=== PATIENT | female | born 1970 | race Caucasian/White ===

== ENCOUNTER 2024-02-22 12:44 | Inpatient (IN) ==
--- OUTSIDE RECORDS SUMMARY | 2024-02-22 12:48 | External Medical Summary | Summary of Care ---
Author Name Unknown Organization [facility] Address [address] [facility] [address] Phone [phone] Care Team Providers Care Assistant Professor Of Business Name Role Phone Lane Malone MD Primary Care Provider +1- [phone] Reason for Visit * Reason Onset Date Comments Med Request 01/19/2024 FYI 01/19/2024 Encounter Details Date Type Department Care Team (Late st Contact Info) Description 01/19/2024 Telephone [facility] [address] [place] [address] [address] Malone MD [address] [place] [address] Med Request; Allergies No known active allergiesdocumented as of this encounter (statuses as of 02/19/2024) Medications Medication Sig Dispensed Refills Start Date End Date Status Ondansetron 4 MG Oral Tablet Disintegrating (Zofran)Indications: Nausea Place 1 Tab on tongue every 8 hours as needed for Nausea. dissolve on tongue. 12 Tab 1 01/10/2021 Active Additional Information Patient not taking.Reported on 12/02/2023 ALPRAZolam 0.5 MG Oral Tablet (xaNAX) Take 1 Tablet by mouth as needed for Anxiety. 15 Tablet 0 02/04/2023 Active buPROPion HCl ER (XL) 300 MG Oral Tablet Extended Release 24 Hour (Wellbutrin XL) Take 1 Tablet by mouth in the morning. 90 Tablet 1 10/15/2023 Active clomiPRAMINE HCl 75 MG Oral Capsule (Anafranil) Take 2 Capsules by mouth every night at bedtime. 180 Capsule 1 10/15/2023 Active [place] Carbonate 300 MG Oral Capsule (Eskalith) TAKE 3 CAPSULES BY MOUTH NIGHTLY 270 Capsule 1 10/15/2023 Active Topiramate 50 MG Oral Tablet (Topamax) Take 1 Tablet by mouth in the morning and 1 Tablet before bedtime. 180 Tablet 1 11/12/2023 Active Levothyroxine Sodium 88 MCG Oral Tablet (Levoxyl)Indications :Acquired hypothyroidism TAKE 1 TABLET DAILY 90 Tablet 2 11/12/2023 Active Mounjaro 5 MG/0.5ML Subcutaneous Solution Pen-injector (Tirzepatide) Inject 5 mg under the skin once a week. 2 mL 3 12/19/2023 Active Lurasidone HCl 120 MG Oral Tablet (Latuda) Take 1 Tablet by mouth in the morning. Total of 140mg daily. 90 Tablet 1 01/05/2024 Active Lurasidone HCl 20 MG Oral Tablet (Latuda) Take 1 Tablet by mouth in the morning. Total of 140mg daily. 90 Tablet 1 01/05/2024 Active Lisdexamfetamine Dimesylate 70 MG Oral Capsule (Vyvanse) Take 1 Capsule by mouth in the morning. Do not start before January 19, 2024. 90 Capsule 0 01/19/2024 Active Pantoprazole Sodium 40 MG Oral Tablet Delayed Release (Protonix) Take 1 tab by mouth twice per day 180 Tablet 1 01/14/2024 Active documented as of this encounter (statuses as of 02/19/2024) Active Problems Problem Noted Date Diagnosed Date Hiatal hernia 05/29/2023 Prediabetes 08/19/2022 Overview: Per Prediabetes protocol Chronic kidney disease, stage 3a 12/17/2021 Overview: Per CKD protocol Other specified hypothyroidism 02/04/2008 Major depressive disorder, recurrent episode, mo derate 01/29/2008 Obsessive-compulsive disorder 08/14/2007 Raynaud's syndrome 07/10/2007 ADVANCE DIRECTIVE INFORMATION 09/25/2006 Overview: Information offered-patient declined Laxative abuse Eating disorder Overview: hospitalized, [place], left AMA, mixed type documented as of this encounter (statuses as of 02/19/2024) Resolved Problems Problem Noted Date Diagnosed Date Resolved Date Headache 02/12/2008 07/24/2011 Overview: ICD-10 update of inactive term Other B-complex deficiencies 02/01/2008 07/24/2011 rule out UTI 02/01/2008 02/04/2008 Disorder of thyroid 01/29/2008 02/04/20 08 Major depressive disorder, s laura episode, severe 01/28/2008 07/24/2011 Obsessive-compulsive disorder 07/10/2007 02/04/2008 Anemia 09/30/2006 07/24/2011 ABN LIVER FUNCTION STUDY 09/30/2006 ELEV BL PRES W-O HYPERTN PRESCRIP-ORAL CONTRACEPT documented as of this encounter (statuses as of 02/19/2024) Immunizations Name Administration Dates Next Due TDAP (age 11 and older)(Adacel) 07/17/2009 documented as of this encounter Social History Tobacco Use Types Packs/Day Years Used Date Smoking Tobacco: Never Smokeless Tobacco: Never Alcohol Use Standard Drinks/Week Comments No 0 (1 standard drink = 0.6 oz pur e alcohol) Hunger Vital Sign Answer Date Recorded Within the past 12 months, y ou worried that your food would run out before you got the money to buy more. Never true 07/30/20 23 Within the past 12 months, t he food you bought just didn't last and you didn't have money to get more. Never true 07/30/2023 Sex and Gender Information Value Date Recorded Sex Assigned at Female 07/30/2023 8:20 AM EDT Gender Identity Female 07/30/2023 8:20 AM EDT Sexual Orientation Straight 07/30/2023 8: 20 AM EDT Job Start Date Occupation Industry Not on file Not on file Not on file documented as of this encounter Miscellaneous Notes * Telephone Encounter - Christi Munoz, student services director - 02/19/2024 2:12 PM EDT Patients spouse calling stating that Patient was able to obtain Mounjaro 5 mg/0.5 ml at [facility] pharmacy Thank you, Christi Munoz Educator Senior Clinical I [facility] ([facility]) 02/19/2024,2:15 PM * Telephone Encounter - Marisela Fiore CPhT - 02/18/2024 2:03 PM EDT Pt's calling to check on status of mounjaro not being available and what MD wants pt to do.Pt's last injection she has is for this Friday then pt will be out of medication Thank you, Marisela Fiore CPhT II Drier Take Off Tender [facility] ([facility]) (Formerly Telepharmacy) 02/18/2024, 2:03 PM * Telephone Encounter - Yuli Yan student services director - 02/13/2024 2:59 PM EDT Patient spouse called in to make us aware that mounjaro is unavailable at pharmacy in the 7mg and 5mg doses. He is wondering what they should do. He states that she has enough for this week and next Thank you, Yuli Yan Educator Senior Clinical I [facility] ([facility] Telepharmacy) 02/13/2024,3:00 PM * Telephone Encounter - Lane Malnoe MD - 01/20/2024 9:45 PM EDT Noted * Telephone Encounter - Ailyn Cotter student services director - 01/20/2024 5:39 PM EDT Pt calling in advising the 7.5 is on backorder and pharmacy is unsure when they will have it, wants to stay on the 5 mg for now instead of increasing the dose as they have the 5 mg in stock, please disregard dose increase for now. Thank you, Ailyn Cotter [facility] Drier Take Off Tender II [facility] ([facility]) (formerly Telepharmacy) 01/20/2024,5:40 PM * Addendum Note - Carleen Coronel RPh - 01/19/2024 1:08 PM EDTAddended by: CARLEEN CORONEL on: 01/19/2024 01:08 PM Modules accepted: Orders * Telephone Encounter - Kimmie Hawk PHARM Tech - 01/19/2024 12:44 PM EDT Pt calling in to request a dose change on their Mounjaro 5 MG/0.5ML Subcutaneous Solution Pen-injector (Tirzepatide). Current dose: 5 MG/0.5ML Requested dose: 7.5MG Reason for request: due for a high dose Preferred pharmacy: [facility] Patient unwilling to speak with pharmacist at this time. Routing to pharmacist pool to advise. Thank you, Keny Hawk, Instrument Technologist Educator Senior Clinical 1 [facility] ([facility]) (Formerly Telepharmacy) 01/19/2024,12:44 PM documented in this encounter Plan of Treatment Upcoming Encounters Date Type Department Care Team (Late st Contact Info) Description 02/25/2024 8:30 AM EDT Telemedicine Psychiatry, [address] [place] [address] Jeremy Lezama MD [address] [place] [address] 06/10/2024 9:40 AM EDT Office Visit [facility] [address] [place] [address] [address] Malone MD [address] [facility] [place] [id number] 10/13/2024 10:40 AM EST Office Visit Otolaryngology [facility] [address] [place] [address] Cleve Gardner PA-C [address] [place] [address] Scheduled Procedures Name Priority Associated Diagnoses Date/Ti me ESOPHAGOGASTRODUODENOSCOPY ( EGD), FLEXIBLE, TRANSORAL, DIAGNOSTIC Recall Reflux esophagitis Health Maintenance Due Date Last Done Comments HIV Screening 1985 Albumin/Creatinine Ratio 01/08/1988 Hepatitis B (1 of 3 - 19+ 3-dose series) 1989 Mammogram 2010 Cologuard 2015 Colonoscopy 2015 Colorectal Cancer Screening 2015 Fecal Occult Blood Test 2015 Sigmoidoscopy 2015 DTaP,Tdap,and Td Vaccines (2 - Td or Tdap) 07/17/2019 07/17/2009 Zoster Vaccines (1 of 2) 01/08/2020 PAP SMEAR-EVERY 5 YRS,AGES 21-100 10/23/2020 10/23/2015, 07/18/2011 COVID-19 Vaccine ( - 2022- season) 2023 GFR 11/26/2023 05/26/2023, /01/2023, 11/25/2022, Additional history exists CKD PHOS USE SMARTSET 77201 05/26/2024 05/26/2023 Influenza Vaccine (FLU shot) (Season Ended) 2024 CKD HGB USE SMARTSET 45824 11/28/202411/28, 11/29/2022, 11/28/2021, Additional history exists HbA1c 11/28/2024 11/28/2023, 11/07, 11/25/2022, Additional history exists TSH 12/02/2024 12/02/2023, 05/07, 11/29/2022, Additional history exists Lipid Panel 11/29/2027 11/29/2022, 07/08, 11/28/2021, Additional history exists Hepatitis C Screening Completed 10/14/2006 GARDASIL-HPV IMMUNIZATION SERIES Aged Out No longer eligible based on patient's age to complete this topic MENINGOCOCCAL (MENACTRA/MENVEO) Aged Out No longer eligible based on patient's age to complete this topic Pneumococcal Vaccine: Pediatrics (0 to 5 Years) and At-Risk Patients (6 to 64 Years) Aged Out No longer eligible based on patient's age to complete this topic documented as of this encounter Medical Devices Implanted Type Area Water Pumping Station Engineer Device Identifier Shelf Expiration Date Model / Serial / Lot Lens 16.5 Mx60 - [id number] - [id number] Implanted:Qty: 1 on 08/05/2017 by Navin Benjamin MD at OR [facility] Left: Eye [employer]OM[employer] : SURGICAL 03/05/2020 MX60-16.5 / [id number] / Lens 14.0 Mx60 - [id number] - [id number] Implanted:Qty: 1 on 08/21/2017 by Navin Benjamin MD at OR [facility] Right: Eye BAUSCH [employer] LOMB : SURGICAL 06/05/2018 MX60-14.0 / [id number] / documented as of this encounter Advance Directives Latest Code Status on File Code Status Date Activated Date Inactivated Comments Full Code 12/11/2020 12:24 PM 12/11/2020 5:15 PM This o rder reflects the patients wishes and were consensually agreed upon. Code Status History Code Status Date Activated Date Inactivated Comments Full Code 08/21/2017 7:41 AM 08/21/2017 1:56 PM Thi s order reflects the patients wishes and were consensually agreed upon. Full Code 08/05/2017 11:02 AM 08/05/2017 5:23 PM Th is order reflects the patients wishes and were consensually agreed upon. Full Code 01/28/2008 12:00 PM 02/01/2008 8:00 PM Care Teams Assistant Professor Of Business Relationship Specialty Start Date End Date Lane Malone MD [address] [place] [address] PCP - General Family Medicine 01/01/22 documented as of this encounter
--- OUTSIDE RECORDS SUMMARY | 2024-02-22 12:49 | External Medical Summary | Summary of Care ---
Author Name Unknown Organization [facility] Address [address] [place] [address] Phone [phone] Care Team Providers Care Solution Professional Name Role Phone Guerline Muniz MD Primary Care Provider +1- [phone] Reason for Visit * Reason Onset Date Comments Medication Refill 12/19/2023 Encounter Details Date Type Department Care Team (Late st Contact Info) Description 12/19/[address] [facility] [address] [place] [address] Guerline Muniz MD [address] [place] [address] Anemia, unspecified type; Weight gain; Prediabetes Allergies No known active allergiesdocumented as of this encounter (statuses as of 12/19/2023) Medications Medication Sig Dispensed Refills Start Date [...] for Anxiety. 15 Tablet 0 02/04/2023 Active Pantoprazole Sodium 40 MG Oral Tablet Delayed Release (Protonix) Take 1 tab by mouth twice per day 180 Tablet 1 05/29/2023 Active buPROPion HCl ER (XL) 300 MG Oral Tablet Extended Release 24 Hour (Wellbutrin XL) Take 1 Tablet by mouth in the morning. 90 Tablet 1 10/15/2023 Active clomiPRAMINE HCl 75 MG Oral Capsule (Anafranil) Take 2 Capsules by mouth every night at bedtime. 180 Capsule 1 10/15/2023 Active [place] Carbonate 300 MG Oral Capsule (Eskalith) TAKE 3 CAPSULES BY MOUTH NIGHTLY 270 Capsule 1 10/15/2023 Active Topiramate 50 MG Oral Tablet (Topamax) Take 1 Tablet by mouth in the morning and 1 Tablet before bedtime. 180 Tablet 1 11/12/2023 Active Levothyroxine Sodium 88 MCG Oral Tablet (Levoxyl)Indications :Acquired hypothyroidism TAKE 1 TABLET DAILY 90 Tablet 2 11/12/2023 Active Lurasidone HCl 120 MG Oral Tablet (Latuda) Take 1 Tablet by mouth in the morning. Total of 140mg daily. 90 Tablet 1 11/27/2023 Active Mounjaro 2.5 MG/0.5ML Subcutaneous Solution Pen-injector (Tirzepatide)Indicat ions:Anemia, unspecified type,Weight gain,Prediabetes Inject 2.5 mg under the skin once a week. 2 mL 5 12/02/2023 Active Lurasidone HCl 20 MG Oral Tablet (Latuda) Take 1 Tablet by mouth in the morning. Total of 140mg daily. 30 Tablet 1 12/10/2023 Active Lisdexamfetamine Dimesylate 70 MG Oral Capsule (Vyvanse) Take 1 Capsule by mouth in the morning. Do not start before December 22, 2023. 30 Capsule 0 12/22/2023 Active Mounjaro 5 MG/0.5ML Subcutaneous Solution Pen-injector (Tirzepatide) Inject 5 mg under the skin once a week. 2 mL 3 12/19/2023 5 Active documented as of this encounter (statuses as of 12/19/2023) Active Problems Problem Noted Date Diagnosed Date Hiatal hernia 05/29/2023 Prediabetes 08/19/2022 Overview: Per Prediabetes protocol Chronic kidney disease, stage 3a 12/17/2021 Overview: Per CKD protocol Other specified hypothyroidism 02/04/2008 Major depressive disorder, recurrent episode, mo derate 01/29/2008 Obsessive-compulsive disorder 08/14/2007 Raynaud's syndrome 07/10/2007 ADVANCE DIRECTIVE INFORMATION 09/25/2006 Overview: Information offered-patient declined Laxative abuse Eating disorder Overview: hospitalized, [place], left AMA, mixed type documented as of this encounter (statuses as of 12/19/2023) Resolved Problems Problem Noted Date Diagnosed Date [...] as of this encounter (statuses as of 12/19/2023) Immunizations Name Administration Dates Next Due TDAP [...] encounter Miscellaneous Notes * Telephone Encounter - Guerline Muniz MD - 12/19/2023 1:44 PM EDTSigned Prescriptions: Disp Refills Mounjaro 5 MG/0.5ML Subcutaneous Solution *2 mL 3 Sig: Inject 5 mg under the skin once a week.Authorizing Provider: GUERLINE MUNIZ * Telephone Encounter - Guerline Muniz MD - 12/19/2023 1:44 PM EDT New dose sent erx * Telephone Encounter - Annette Cabrera RPh - 12/19/2023 1:36 PM EDT Dose change recommended for Mounjaro . Script pending. Please approve if appropriate and route backto inform the patient. Current dose: 2.5mg Requested dose: 5mg Reason for request: The lower initial dose (2.5mg weekly) is intended to reduce GI symptoms; it does not provide effective glycemic control. Recommend tapering up to next appropriate dose. Patient aware to finish full 4 weeks of 2.5mg before switching to 5mg. Pending Prescriptions: Disp Refills Mounjaro 5 MG/0.5ML Subcutaneous Solution*2 mL 1 Sig: Inject 5 mg under the skin once a week. ThanksAnnette, PharmD Clinical Pharmacist [facility] ([facility]) [phone] 12/19/2023 1:36 PM * Telephone Encounter - Alma Delia Rebollar PHARM Tech - 12/19/2023 1:30 PM EDT Pt calling in to request a dose change on their Mounjaro 2.5 MG/0.5ML Subcutaneous Solution Pen-injector (Tirzepatide) . Current dose: 2.5 mg Requested dose: per provider Reason for request: Provider stated if she was tolerating med well he may increase dosage. Preferred pharmacy: [facility] [address] Warm-transferred pt to pharmacist for consultation. Thank you, Alma Delia Rebollar Varnish Filterer I [facility] ([facility]) (Formerly Telepharmacy) 12/19/2023,1:30 PM documented in this encounter Plan of Treatment Upcoming Encounters Date Type Department Care Team (Late st Contact Info) Description 01/05/2024 2:00 PM EDT Telemedicine Psychiatry, [address] [address] Jeremy Lezama MD [address] [place] [address] 03/19/2024 9:00 AM EDT Office Visit Gastroenterology, [facility] [address] [place] [address] Vale Engel CRNP [address] [place] [address] 06/10/2024 9:40 AM EDT Office Visit [facility] [address] [place] [id number] Guerline Muniz MD [address] [place] [address] 10/13/2024 10:40 AM EST Office Visit Otolaryngology [facility] [address] [place] [address] Cleve Gardner PA-C [address] [place] [address] Scheduled Procedures Name Priority Associated Diagnoses Date/Ti me ESOPHAGOGASTRODUODENOSCOPY ( EGD), FLEXIBLE, TRANSORAL, DIAGNOSTIC Recall Reflux esophagitis Health Maintenance Due Date Last Done Comments HIV Screening 1985 Albumin/Creatinine Ratio 01/08/1988 Hepatitis B (1 of 3 - 19+ 3-dose series) 1989 Mammogram 2010 Cologuard 2015 Colonoscopy 2015 Colorectal Cancer Screening 2015 Fecal Occult Blood Test 2015 Sigmoidoscopy 2015 Depression Screening 07/31/2018 07/31/2017 DTaP,Tdap,and Td Vaccines (2 - Td or Tdap) 07/17/2019 07/17/2009 Zoster Vaccines (1 of 2) 01/08/2020 PAP SMEAR-EVERY 5 YRS,AGES 21-100 10/23/2020 10/23/2015, 07/18/2011 COVID-19 Vaccine (2022- season) 2023 Influenza Vaccine (FLU shot) (#1) 2023 GFR 11/26/2023 05/26/2023, 11/07, 11/25/2022, Additional history exists CKD PHOS USE SMARTSET 77794 05/26/2024 05/26/2023 CKD HGB USE SMARTSET 05752 11/28/202411/28, 11/29/2022, 11/28/2021, Additional history exists HbA1c [...] this encounter Medical Devices Implanted Type Area Director Pharmaceutical Device Identifier Shelf Expiration Date Model / Serial / Lot Lens 16.5 Mx60 - [id number] - [id number] Implanted:Qty: 1 on 08/05/2017 by Navin Benjamin MD at OR [facility] [address] Left: Eye [employer] LOMB : SURGICAL 03/05/2020 MX60-16.5 / [id number] / Lens 14.0 Mx60 - [id number] - [id number] Implanted:Qty: 1 on 08/21/2017 by Navin Benjamin MD at OR [facility] [address] Right: Eye BAUSCH [employer] LOMB : SURGICAL 06/05/2018 MX60-14.0 / [id number] / documented as of this encounter Visit Diagnoses Diagnosis Anemia, unspecified type Weight gain Abnormal weight gain Prediabetes Other abnormal glucose documented in this encounter Advance Directives Latest Code Status [...] 12:00 PM 02/01/2008 8:00 PM Care Teams Solution Professional Relationship Specialty Start Date End Date Guerline Muniz MD [address] [place] [address] PCP - General Family Medicine 01/01/22 documented as of this encounter
--- OUTSIDE RECORDS SUMMARY | 2024-02-22 12:49 | External Medical Summary | Summary of Care ---
Author Name Unknown Organization [facility] Address [address] [place] [facility] [place] [place] [address] Phone [phone] Care Team Providers Care Dinkey Operator Slag Name Role Phone Lane Malone MD Primary Care Provider +1- [phone] Reason for Visit * Reason Onset Date Comments Med Request 01/19/2024 Encounter Details Date Type Department Care Team (Late st Contact Info) Description 01/19/2024 Telephone [facility] [address] [place] [address] [address] Malone MD [address] [place] [address] Med Request Allergies No known active allergiesdocumented as of this encounter (statuses as of 02/13/2024) Medications Medication Sig Dispensed Refills Start Date [...] at bedtime. 180 Capsule 1 10/15/2023 Active [place] Carbonate 300 MG Oral Capsule (Eskalith) TAKE [...] as of this encounter (statuses as of 02/13/2024) Active Problems Problem Noted Date Diagnosed Date Hiatal hernia 05/29/2023 Prediabetes 08/19/2022 Overview: Per Prediabetes protocol Chronic kidney disease, stage 3a 12/17/2021 Overview: Per CKD protocol Other specified hypothyroidism 02/04/2008 Major depressive disorder, recurrent episode, mo derate 01/29/2008 Obsessive-compulsive disorder 08/14/2007 Raynaud's syndrome 07/10/2007 ADVANCE DIRECTIVE INFORMATION 09/25/2006 Overview: Information offered-patient declined Laxative abuse Eating disorder Overview: hospitalized, [place], left AMA, mixed type documented as of this encounter (statuses as of 02/13/2024) Resolved Problems Problem Noted Date Diagnosed Date [...] as of this encounter (statuses as of 02/13/2024) Immunizations Name Administration Dates Next Due TDAP [...] encounter Miscellaneous Notes * Telephone Encounter - Yuli Yan, hat steamer - 02/13/2024 2:59 PM EDT Patient spouse called in to make us aware that mounjaro is unavailable at pharmacy in the 7mg and 5mg doses. He is wondering what they should do. He states that she has enough for this week and next Thank you, Yuli Yan Engineering Lab Technician I [facility] ([facility]formerly [facility]) 02/13/2024,3:00 PM * Telephone Encounter - Lane Malone MD - 01/20/2024 9:45 PM EDT Noted * Telephone Encounter - Ailyn Cotter PHARM Tech - 01/20/2024 5:39 PM EDT Pt calling in advising the 7.5 is on backorder and pharmacy is unsure when they will have it, wants to stay on the 5 mg for now instead of increasing the dose as they have the 5 mg in stock, please disregard dose increase for now. Thank you, Ailyn Cotter CPhT Hourly Shift II [facility] ([facility]) (formerly [...] due for a high dose Preferred pharmacy: [facility] [address] Patient unwilling to speak with pharmacist at this time. Routing to pharmacist pool to advise. Thank you, Keny Hawk, Inspector And Mender Engineering Lab Technician 1 [facility] ([facility]) (Formerly Telepharmacy) 01/19/2024,12:44 PM documented in this encounter Plan of Treatment Upcoming Encounters Date Type Department Care Team (Late st Contact Info) Description 02/25/2024 8:30 AM EDT Telemedicine Psychiatry, [facility] [address] [place] [address] Jeremy Lezama MD [address] [place] [address] 06/10/2024 9:40 AM EDT Office Visit [facility] [address] [place] [address] Lane Malone MD [address] [place] [address] 10/13/2024 10:40 AM EST Office Visit Otolaryngology [facility] [address] [place] [address] Cleve Gardner PA-C [address] [place] [address] Scheduled Procedures Name Priority Associated Diagnoses Date/Ti [...] - 2022- season) 2023 GFR 11/26/2023 05/26/2023, 11/07, 11/25/2022, Additional history exists CKD PHOS USE SMARTSET 66416 05/26/2024 05/26/2023 Influenza Vaccine (FLU shot) (Season Ended) 2024 CKD HGB USE SMARTSET 73333 11/28/202411/28, 11/29/2022, 11/28/2021, Additional history exists HbA1c [...] this encounter Medical Devices Implanted Type Area Putty Remover Device Identifier Shelf Expiration Date Model / Serial / Lot Lens 16.5 Mx60 - [id number] - [id number] Implanted:Qty: 1 on 08/05/2017 by Navin Benjamin MD at OR [facility] Left: Eye BAUSCH [employer] LOMB : SURGICAL 03/05/2020 MX60-16.5 / [id number] / Lens 14.0 Mx60 - [id number] - [id number] Implanted:Qty: 1 on 08/21/2017 by Navin Benjamin MD at OR [facility] Right: Eye BAUSCH [employer] LOMB : SURGICAL 06/05/2018 MX60-14.0 / [id number] / documented as of this encounter Advance [...] 12:00 PM 02/01/2008 8:00 PM Care Teams Dinkey Operator Slag Relationship Specialty Start Date End Date Lane Malone MD [address] [place] [address] PCP - General Family Medicine 01/01/22 documented as of this encounter
--- OUTSIDE RECORDS SUMMARY | 2024-02-22 12:49 | External Medical Summary | Summary of Care ---
Author Name Unknown Organization [facility] Address [address] [place] [address] Phone [phone] Care Team Providers Care Supervisor Forming And Tempering Name Role Phone Lane Malone MD Primary Care Provider +1- [phone] Reason for Visit * Reason Onset Date Comments Medication Refill 12/13/2023 Encounter Details Date Type Department Care Team (Late st Contact Info) Description 12/13/2023 Refill Psychiatry, [address] [address] Jeremy Lezama MD [address] [place] [address] Allergies No known active allergiesdocumented as of this encounter (statuses as of 12/17/2023) Medications Medication Sig Dispensed Refills Start Date End Date Status Ondansetron 4 MG Oral Tablet Disintegrating (Zofran)Indications :Nausea Place 1 Tab on tongue every 8 [...] at bedtime. 180 Capsule 1 10/15/2023 Active [place] Carbonate 300 MG Oral Capsule (Eskalith) TAKE 3 CAPSULES BY MOUTH NIGHTLY 270 Capsule 1 10/15/2023 Active Topiramate 50 MG Oral Tablet (Topamax) Take 1 Tablet by mouth in the morning and 1 Tablet before bedtime. 180 Tablet 1 11/12/2023 Active Levothyroxine Sodium 88 MCG Oral Tablet (Levoxyl)Indication s:Acquired hypothyroidism TAKE 1 TABLET DAILY 90 Tablet 2 11/12/2023 Active Lurasidone HCl 120 MG Oral Tablet (Latuda) Take 1 Tablet by mouth in the morning. Total of 140mg daily. 90 Tablet 1 11/27/2023 Active Mounjaro 2.5 MG/0.5ML Subcutaneous Solution Pen-injector (Tirzepatide)Indica tions:Anemia, unspecified type,Weight gain,Prediabetes Inject 2.5 mg under the skin once a week. 2 mL 5 12/02/2023 12/01/19 25 Active Lurasidone HCl 20 MG Oral Tablet (Latuda) Take 1 Tablet by mouth in the morning. Total of 140mg daily. 30 Tablet 1 12/10/2023 Active Lisdexamfetamine Dimesylate 70 MG Oral Capsule (Vyvanse) Take 1 Capsule by mouth in the morning. 30 Capsule 0 12/15/2023 Active Lisdexamfetamine Dimesylate 70 MG Oral Capsule (Vyvanse) Take 1 Capsule by mouth in the morning. 90 Capsule 0 09/22/2023 12/13/19 24 Discontinu ed(Refill) documented as of this encounter (statuses as of 12/17/2023) Active Problems Problem Noted Date Diagnosed Date Hiatal hernia 05/29/2023 Prediabetes 08/19/2022 Overview: Per Prediabetes protocol Chronic kidney disease, stage 3a 12/17/2021 Overview: Per CKD protocol Other specified hypothyroidism 02/04/2008 Major depressive disorder, recurrent episode, mo derate 01/29/2008 Obsessive-compulsive disorder 08/14/2007 Raynaud's syndrome 07/10/2007 ADVANCE DIRECTIVE INFORMATION 09/25/2006 Overview: Information offered-patient declined Laxative abuse Eating disorder Overview: hospitalized, [place], left AMA, mixed type documented as of this encounter (statuses as of 12/17/2023) Resolved Problems Problem Noted Date Diagnosed Date [...] as of this encounter (statuses as of 12/17/2023) Immunizations Name Administration Dates Next Due TDAP [...] encounter Miscellaneous Notes * Telephone Encounter - Margo España CPhT - 12/17/2023 9:25 AM EDT Pt EC calling stating pt only has enough Lisdexamfetamine Dismesylate 70mg to last until 12/22/2023. If applicable, pt EC is requesting RX be resent to [facility] [address] [place] [address] with a fill date of 12/22/2023. Did advise caller that pt should have enough medication to last until 12/24/2023, but caller states there are only 5 pills left in the bottle. Thank you, Margo España, [facility] 1 Manager Contracting [facility] ([facility]) (formerly Telepharmacy) 12/17/2023, 9:27 AM * Telephone Encounter - Marlon Mckeon CRNP - 12/15/2023 11:45 AM EDT Signed Prescriptions: Disp Refills Lisdexamfetamine Dimesylate 70 MG Oral Cap*30 Cap*0 Sig: Take 1 Capsule by mouth in the morning. Authorizing Provider: MARLON MCKEON * Telephone Encounter - Marlon Mckeon CRNP - 12/15/2023 11:45 AM EDT I have reviewed the patients controlled substance dispensing history in the Prescription Drug Monitoring Program in compliance with the [facility] regulations before prescribing a controlled substance. * Telephone Encounter - Clara Carver MED ASSIST - 12/15/2023 8:41 AM EDT Pending Prescriptions: Disp Refills Lisdexamfetamine Dimesylate 70 MG Oral Cap*90 Cap*0 Sig: Take 1 Capsule by mouth in the morning. * Telephone Encounter - Clara Carver MED ASSIST - 12/15/2023 8:40 AM EDT Refill request from patient (Katerina) for Vyvanse 70mg. Medication last filled on 09/22/23 with 0 refills. Patient last seen on 10/15/23 with return appointment scheduled for 01/05/24. Patient had 1 cancelled appointments and 0 NO SHOW appointments. documented in this encounter Plan of Treatment Upcoming Encounters Date Type Department Care Team (Late st Contact Info) Description 01/05/2024 2:00 PM EDT Telemedicine Psychiatry, [address] [address] Jeremy Lezama MD [address] [place] [address] 03/19/2024 9:00 AM EDT Office Visit Gastroenterology, [facility] [address] [place] [address] Vale Engel CRNP [address] [place] [address] 06/10/2024 9:40 AM EDT Office Visit [address] [address] [address] Malone MD [address] [place] [address] 10/13/2024 10:40 AM EST Office Visit Otolaryngology [facility] [address] [place] [address] Cleve Gardner PA-C [address] [place] [address] Scheduled Procedures Name Priority Associated Diagnoses Date/Ti [...] Additional history exists CKD PHOS USE SMARTSET 16100 05/26/2024 05/26/2023 CKD HGB USE SMARTSET 16033 11/28/202411/28, 11/29/2022, 11/28/2021, Additional history exists HbA1c [...] this encounter Medical Devices Implanted Type Area Hog Room Supervisor Device Identifier Shelf Expiration Date Model / Serial / Lot Lens 16.5 Mx60 - [id number] - [id number] Implanted:Qty: 1 on 08/05/2017 by Navin Benjamin MD at OR [facility] Left: Eye BAUSCH [employer] LOMB : SURGICAL 03/05/2020 MX60-16.5 / [id number] / Lens 14.0 Mx60 - [id number] - [id number] Implanted:Qty: 1 on 08/21/2017 by Navin Benjamin MD at OR [facility] Right: Eye BAUSCH & LOMB : SURGICAL 06/05/2018 MX60-14.0 / [id number] / documented as of this encounter Advance [...] 12:00 PM 02/01/2008 8:00 PM Care Teams Supervisor Forming And Tempering Relationship Specialty Start Date End Date Lane Malone MD [address] [place] [address] PCP - General Family Medicine 01/01/22 documented as of this encounter
--- OUTSIDE RECORDS SUMMARY | 2024-02-22 12:49 | External Medical Summary | Summary of Care ---
Author Name Unknown Organization [facility] Address [address] [place] [address] Phone [phone] Care Team Providers Care Lead Programmer Analyst Name Role Phone Lane Malone MD Primary Care Provider [phone]- [phone] Encounter Details Date Type Department Care Team (Late st Contact Info) Description 01/05/2024 2:00 PM EDT Telemedicine Psychiatry, [address] [address] Jeremy Lezama MD [address] [place] [address] Borderline personality disorder (HCC)* Allergies No known active allergiesdocumented as of this encounter (statuses as of 01/08/2024) Medications Medication Sig Dispensed Refills Start Date [...] at bedtime. 180 Capsule 1 10/15/2023 Active [place] Carbonate 300 MG Oral Capsule (Eskalith) TAKE [...] once a week. 2 mL 3 12/19/2023 12/19/19 25 Active Lurasidone HCl 120 MG Oral Tablet [...] 19, 2024. 90 Capsule 0 01/19/2024 Active Lurasidone HCl 120 MG Oral Tablet (Latuda) Take 1 Tablet by mouth in the morning. Total of 140mg daily. 90 Tablet 1 11/27/2023 01/05/20 24 Discontinu ed(Refill) Lurasidone HCl 20 MG Oral Tablet (Latuda) Take 1 Tablet by mouth in the morning. Total of 140mg daily. 30 Tablet 1 12/10/2023 01/05/20 24 Discontinu ed(Refill) Lisdexamfetamine Dimesylate 70 MG Oral Capsule (Vyvanse) Take 1 Capsule by mouth in the morning. Do not start before December 22, 2023. 30 Capsule 0 12/22/2023 01/05/20 24 Discontinu ed(Refill) documented as of this encounter (statuses as of 01/08/2024) Active Problems Problem Noted Date Diagnosed Date Hiatal hernia 05/29/2023 Prediabetes 08/19/2022 Overview: Per Prediabetes protocol Chronic kidney disease, stage 3a 12/17/2021 Overview: Per CKD protocol Other specified hypothyroidism 02/04/2008 Major depressive disorder, recurrent episode, mo derate 01/29/2008 Obsessive-compulsive disorder 08/14/2007 Raynaud's syndrome 07/10/2007 ADVANCE DIRECTIVE INFORMATION 09/25/2006 Overview: Information offered-patient declined Laxative abuse Eating disorder Overview: hospitalized, [place], left AMA, mixed type documented as of this encounter (statuses as of 01/08/2024) Resolved Problems Problem Noted Date Diagnosed Date [...] as of this encounter (statuses as of 01/08/2024) Immunizations Name Administration Dates Next Due TDAP [...] on file documented as of this encounter Progress Notes * Jeremy Lezama MD - 01/05/2024 2:01 PM EDT Patient location: HOME. I was not in a hospital or clinic location. After connecting through [employer], patient was verified with two unique identifiers. Patient (or authorized legal membership sales representative) was then informed that this was a Telemedicine visit and being conducted confidentially over secure lines. Methods to assure confidentiality were taken. Patient acknowledged consent and understanding of privacy and security of the Telemedicine visit. The patient agreed to participate. PSYCHOTHERAPY & MEDICATION MANAGEMENT RETURN VISIT NOTE CHIEF COMPLAINT: "med management" INTERVAL HISTORY: She states she is doing ok. Significant improvement with AH-- not hearing during day. Will hear a little bit before going to bed. Feels Latuda increase has been helpful. No SE from increased Latuda. Started Mounjaro-- has lost 15 lbs. Feeling good about this. Still struggling with motivation to do activity. Still struggling with jealousy at times. OBJECTIVE DATA: ROS EXAM: denies SUBSTANCE ABUSE:Unremarkable RELEVANT PAST PSYCHIATRIC, MEDICAL, FAMILY OR SOCIAL HX: as noted above CURRENT MEDS: Current Outpatient Medications Medication Sig Dispense Refill Ondansetron 4 MG Oral Tablet Disintegrating (Zofran) Place 1 Tab on tongue every 8 hours as needed for Nausea. dissolve on tongue. (Patient not taking: Reported on 12/02/2023) 12 Tab 1 ALPRAZolam 0.5 MG Oral Tablet (xaNAX) Take 1 Tablet by mouth as needed for Anxiety. 15 Tablet 0 Pantoprazole Sodium 40 MG Oral Tablet Delayed Release (Protonix) Take 1 tab by mouth twice per day 180 Tablet 1 buPROPion HCl ER (XL) 300 MG Oral Tablet Extended Release 24 Hour (Wellbutrin XL) Take 1 Tablet by mouth in the morning. 90 Tablet 1 clomiPRAMINE HCl 75 MG Oral Capsule (Anafranil) Take 2 Capsules by mouth every night at bedtime. 180 Capsule 1 [place] Carbonate 300 MG Oral Capsule (Eskalith) TAKE 3 CAPSULES BY MOUTH NIGHTLY 270 Capsule 1 Topiramate 50 MG Oral Tablet (Topamax) Take 1 Tablet by mouth in the morning and 1 Tablet before bedtime. 180 Tablet 1 Levothyroxine Sodium 88 MCG Oral Tablet (Levoxyl) TAKE 1 TABLET DAILY 90 Tablet 2 Lurasidone HCl 120 MG Oral Tablet (Latuda) Take 1 Tablet by mouth in the morning. Total of 140mg daily. 90 Tablet 1 Lurasidone HCl 20 MG Oral Tablet (Latuda) Take 1 Tablet by mouth in the morning. Total of 140mg daily. 30 Tablet 1 Lisdexamfetamine Dimesylate 70 MG Oral Capsule (Vyvanse) Take 1 Capsule by mouth in the morning. Donot start before December 22, 2023. 30 Capsule 0 Mounjaro 5 MG/0.5ML Subcutaneous Solution Pen-injector (Tirzepatide) Inject 5 mg under the skin once a week. 2 mL 3 No current facility-administered medications for this visit. LABS: Reviewed per EMR MENTAL STATUS EVALUATION: Appearance: age-appropriate Muscle strength/tone and motor behavior: intention tremor visualized Gait and Station: trembling with intentional movement or at rest Personal Presentation: candid and cooperative. Behavior: cooperative Speech: normal, rate, tone and volume Mood: the same Affect: type - euthymic; range - blunted; lability - no Associations: intact Thought Process: goal directed Abstract Reasoning: intact Thought Content: no SI or voiced HI; AH of music Orientation: alert Recent and remote memory as evidenced by recall of recent circumstances and remote life events: intact Language as evidenced by ability to repeat phrase and name object: intact Fund of knowledge as evidenced by vocabulary and current/historical events: intact Attention span/concentration as evidenced by: following conversation - intact Insight: fair Judgment: fair FORMULATION: Silvia Chambers is a 53 year old female with presenting symptoms of eating disorder. discussed importance of addressing this with ongoing psychotherapy as well as with a operating room surgical technologist (one who specifiesin eating disorders). Has chronic thoughts of suicide due to not feeling good enough-- including wanting to eventually by suicide. 2 inpatient hospitalizations, 1 for an eating disorder. 1 SA at age 19 by OD. 2 children. . Worked for 23 years at [employer] now on disability. Previously in therapy with Ladonna Delgadillo. Struggles with personal hygiene. DIAGNOSIS: Generalized Anxiety Disorder Unspecified Depressive Disorder Borderline Personality Disorder Hx of anorexia Hx of OCD Hx of ECT treatments R/O PTSD PLAN: - cont [place] 900 mg daily - cont Vyvanse 70 mg - cont Clomipramine 75 mg BID - cont Topamax 50 mg BID - cont Buproprion XL 300 mg daily, - cont Xanax 0.5 mg as needed (takes very seldomly) - cont Latuda 140mg qDay - strongly recommend restarting therapy - Goals: making small, sustainable changes - I have reviewed the patients controlled substance dispensing history in the Prescription Drug Monitoring Program in compliance with the [facility] regulations before prescribing a controlled substance. Return 6 weeks Risk/Benefits of Medication Discussed/Verbalized Understanding yes Time Spent on Visit: 30 minutes - including preparing to see the patient, reviewing history, performing evaluation, counseling/educating patient, ordering medications/tests, documenting clinical information. Psychotherapy Attestation: I attest I have spent 16 minutes providing psychotherapy during this visit. The following issues were discussed: explored pros and cons of change. Patient was responsive to treatment and accepting of perspectives offered.. I plan to provide supportive and behavioral based psychotherapy, as needed, in the context of psychopharm management sessions. documented in this encounter Plan of Treatment Upcoming Encounters Date Type Department Care Team (Late st Contact Info) Description 01/16/2024 9:30 AM EDT Office Visit Gastroenterology, [facility] [address] [place] [address] Vale Egnel CRNP [address] [place] [address] 02/25/2024 8:30 AM EDT [address] [address] Jeremy Lezama MD [address] [place] [address] 06/10/2024 9:40 AM EDT [facility] [address] [facility] [place] [address] [address] Malone MD [address] [facility] [place] [id number] 10/13/2024 10:40 AM EST Office Visit Otolaryngology [facility] [address] [place] [address] Cleve Gardner PA-C [address] [place] [address] Scheduled Procedures Name Priority Associated Diagnoses Date/Ti [...] Additional history exists CKD PHOS USE SMARTSET 79457 05/26/2024 05/26/2023 Influenza Vaccine (FLU shot) (Season Ended) 2024 CKD HGB USE SMARTSET 52011 11/28/202411/28, 11/29/2022, 11/28/2021, Additional history exists HbA1c [...] this encounter Medical Devices Implanted Type Area Journal Entry Audit Clerk Device Identifier Shelf Expiration Date Model / Serial / Lot Lens 16.5 Mx60 - [id number] - [id number] Implanted:Qty: 1 on 08/05/2017 by Navin Benjamin MD at OR [facility] Left: Eye BAUSCH [employer] LOMB : SURGICAL 03/05/2020 MX60-16.5 / [id number] / Lens 14.0 Mx60 - [id number] - [id number] Implanted:Qty: 1 on 08/21/2017 by Navin Benjamin MD at OR [facility] Right: Eye BAUSCH & LOMB : SURGICAL 06/05/2018 MX60-14.0 / [id number] / documented as of this encounter Visit Diagnoses Diagnosis Borderline personality disorder (HCC)- Primary Borderline personality disorder documented in this encounter Advance Directives Latest [...] 12:00 PM 02/01/2008 8:00 PM Care Teams Lead Programmer Analyst Relationship Specialty Start Date End Date Lane Malone MD [address] [place] [address] PCP - General Family Medicine 01/01/22 documented as of this encounter
--- OUTSIDE RECORDS SUMMARY | 2024-02-22 12:49 | External Medical Summary | Summary of Care ---
Author Name Unknown Organization [facility] Address [address] [facility] [place] [address] Phone [phone] Care Team Providers Care Poleyard Supervisor Name Role Phone Lane Malone MD Primary Care Provider +1- [phone] Reason for Visit * Reason Onset Date Comments Med Request 01/19/2024 Encounter Details Date Type Department Care Team (Late st Contact Info) Description 01/19/2024 Telephone Located Within [facility] [address] [place] [address] Lane Malone MD [address] [place] [address] Med Request Allergies No known active allergiesdocumented as of this encounter (statuses as of 02/18/2024) Medications Medication Sig Dispensed Refills Start Date [...] at bedtime. 180 Capsule 1 10/15/2023 Active [place] Carbonate 300 MG Oral Capsule (Eskalith) TAKE [...] as of this encounter (statuses as of 02/18/2024) Active Problems Problem Noted Date Diagnosed Date [...] as of this encounter (statuses as of 02/18/2024) Resolved Problems Problem Noted Date Diagnosed Date [...] as of this encounter (statuses as of 02/18/2024) Immunizations Name Administration Dates Next Due TDAP [...] encounter Miscellaneous Notes * Telephone Encounter - Marisela Fiore CPhT - 02/18/2024 2:03 PM EDT Pt's calling to check on status of mounjaro not being available and what MD wants pt to do.Pt's last injection she has is for this Friday then pt will be out of medication Thank you, Marisela Fiore CPhT II Electric Deicer Inspector [facility] ([facility]) (Formerly Telepharmacy) 02/18/2024, 2:03 PM * Telephone Encounter - Yuli Yan cost consultant - 02/13/2024 2:59 PM EDT Patient spouse called in to make us aware that mounjaro is unavailable at pharmacy in the 7mg and 5mg doses. He is wondering what they should do. He states that she has enough for this week and next Thank you, Yuli Yan Proofreader I [facility] ([facility])(formerly Telepharmacy) 02/13/2024,3:00 PM * Telephone Encounter - Lane Malone MD - 01/20/2024 9:45 PM EDT Noted * Telephone Encounter - Ailyn Cotter cost consultant - 01/20/2024 5:39 PM EDT Pt calling in advising the 7.5 is on backorder and pharmacy is unsure when they will have it, wants to stay on the 5 mg for now instead of increasing the dose as they have the 5 mg in stock, please disregard dose increase for now. Thank you, Ailyn Cotter CPhT Electric Deicer Inspector II [facility] ([facility]) (formerly Telepharmacy) 01/20/2024,5:40 PM * Addendum Note - Carleen Coronel [facility] - 01/19/2024 1:08 PM EDTAddended by: CARLEEN CORONEL on: 01/19/2024 01:08 PM Modules accepted: Orders * Telephone Encounter - Kimmie Hawk cost consultant - 01/19/2024 12:44 PM EDT Pt calling in to request a dose change on their Mounjaro 5 MG/0.5ML Subcutaneous Solution Pen-injector (Tirzepatide). Current dose: 5 MG/0.5ML Requested dose: 7.5MG Reason for request: due for a high dose Preferred pharmacy: [facility] Patient unwilling to speak with pharmacist at this time. Routing to pharmacist pool to advise. Thank you, Keny Hawk, Boat Rental Clerk Proofreader 1 [facility] ([facility]) (Formerly Telepharmacy) 01/19/2024,12:44 PM documented in this encounter Plan of Treatment Upcoming Encounters Date Type Department Care Team (Late st Contact Info) Description 02/25/2024 8:30 AM EDT Telemedicine Psychiatry, [address] [place] [address] Jeremy Lezama MD [address] [place] [address] 06/10/2024 9:40 AM EDT Office Visit Located Within [facility] [address] [place] [id number] Lane Malone MD [address] [place] [address] 10/13/2024 10:40 AM EST Office Visit Otolaryngology [facility] [address] [facility] [place] [address] Cleve Gardner PA-C [address] [place] [address] Scheduled Procedures Name Priority Associated Diagnoses Date/Ti [...] Additional history exists CKD PHOS USE SMARTSET 47662 05/26/2024 05/26/2023 Influenza Vaccine (FLU shot) (Season Ended) 2024 CKD HGB USE SMARTSET 04512 11/28/202411/28, 11/29/2022, 11/28/2021, Additional history exists HbA1c [...] this encounter Medical Devices Implanted Type Area Home Health Aide Device Identifier Shelf Expiration Date Model / Serial / Lot Lens 16.5 Mx60 - [id number] - [id number] Implanted:Qty: 1 on 08/05/2017 by Navin Benjamin MD at OR [facility] Left: Eye BAUSCH [employer] LOMB : SURGICAL 03/05/2020 MX60-16.5 / [id number] / Lens 14.0 Mx60 - [id number] - [id number] Implanted:Qty: 1 on 08/21/2017 by Navin Benjamin MD at OR [facility] Right: Eye BAUSCH & LOMB : SURGICAL 06/05/2018 MX60-14.0 / [id number] / documented as of this encounter Advance [...] 12:00 PM 02/01/2008 8:00 PM Care Teams Poleyard Supervisor Relationship Specialty Start Date End Date Lane Malone MD [address] [place] [address] PCP - General Family Medicine 01/01/22 documented as of this encounter
--- OUTSIDE RECORDS SUMMARY | 2024-02-22 12:49 | External Medical Summary | Summary of Care ---
Author Name Unknown Organization [facility] Address [address] [place] [address] Phone [phone] Care Team Providers Care Nanotechnology Engineering Technician Name Role Phone Guerline Muniz MD Primary Care Provider +1- [phone] Reason for Visit * Reason Onset Date Comments Medication Refill 12/19/2023 Encounter Details Date Type Department Care Team (Late st Contact Info) Description 12/19/2023 Refill [facility] [address] [place] [address] Guerline Muniz MD [address] [place] [address] Anemia, unspecified type; Weight gain; [...] at bedtime. 180 Capsule 1 10/15/2023 Active [place] Carbonate 300 MG Oral Capsule (Eskalith) TAKE [...] 140mg daily. 90 Tablet 1 11/27/2023 Active Lurasidone HCl 20 MG Oral Tablet [...] 2 mL 3 12/19/2023 12/19/19 25 Active Mounjaro 2.5 MG/0.5ML Subcutaneous Solution Pen-injector (Tirzepatide)Indica tions:Anemia, unspecified type,Weight gain,Prediabetes Inject 2.5 mg under the skin once a week. 2 mL 5 12/02/2023 12/19/19 24 Discontinu ed(Medicat ion/Dose Changed) documented as of this encounter (statuses as [...] declined Laxative abuse Eating disorder Overview: hospitalized, [place], left AMA, mixed type documented as of [...] as of this encounter Miscellaneous Notes * Addendum Note - Ulises Cabrera [facility] - 12/19/2023 3:13 PM EDTAddended by: ULISES CABRERA on: 12/19/2023 03:13 PM Modules accepted: Orders * Telephone Encounter - Guerline Muniz MD - 12/19/2023 1:44 PM EDTSigned Prescriptions: Disp Refills Mounjaro 5 MG/0.5ML Subcutaneous Solution *2 mL 3 Sig: Inject 5 mg under the skin once a week.Authorizing Provider: GUERLINE MUNIZ * Telephone Encounter - Guerline Muniz MD - 12/19/2023 1:44 PM EDT New dose sent erx * Telephone Encounter - Ulises Cabrera [facility] - 12/19/2023 1:36 PM EDT Dose change [...] mg under the skin once a week. Thanks, Ulises Cabrera PharmD Clinical Pharmacist Centralized Clinical Pharmacy Services (CCPS - Formerly Telepharmacy) [phone] 12/19/2023 1:36 PM * Telephone Encounter - Alma Delia Rebollar PHARM Tech - 12/19/2023 1:30 PM EDT Pt calling in to request a dose change on their Mounjaro 2.5 MG/0.5ML Subcutaneous Solution Pen-injector (Tirzepatide) . Current dose: 2.5 mg Requested dose: per provider Reason for request: Provider stated if she was tolerating med well he may increase dosage. Preferred pharmacy: [facility] Warm-transferred pt to pharmacist for consultation. Thank you, Alma Delia Rebollar Shank Piece Tacker I Centralized Clinical Pharmacy Services (CCPS) (Formerly Telepharmacy) 12/19/2023,1:30 PM documented in this encounter Plan of Treatment Upcoming Encounters Date Type Department Care Team (Late st Contact Info) Description 01/05/2024 2:00 PM EDT Telemedicine Psychiatry, [address] [place] [address] Jeremy Lezama MD [address] [place] [address] 03/19/2024 9:00 AM EDT Office Visit Gastroenterology, [facility] [address] [place] [address] Vale Engel CRNP [address] [place] [address] 06/10/2024 9:40 AM EDT Office Visit [place] [address] [place] [facility] [place] [phone] Guerline Muniz MD [address] [place] [address] 10/13/2024 10:40 AM EST Office Visit Otolaryngology [facility] [address] [facility] [place] [address] Cleve Gardner PA-C [address] [place] [address] Scheduled Procedures Name Priority Associated Diagnoses Date/Ti [...] COVID-19 Vaccine ( - 2022- season) 2023 Influenza Vaccine (FLU shot) (#1) 2023 GFR 11/26/2023 05/26/2023, 11/07, 11/25/2022, Additional history exists CKD PHOS USE SMARTSET 74124 05/26/2024 05/26/2023 CKD HGB USE SMARTSET 43801 11/28/202411/28, 11/29/2022, 11/28/2021, Additional history exists HbA1c 11/28/2024 11/28/2023, 11/07, 11/25/2022, Additional history exists TSH 12/02/2024 12/02/2023, 08/10/2022, 11/29/2022, Additional history exists Lipid Panel 11/29/2027 11/29/2022, 1010/2021, 11/28/2021, Additional history exists Hepatitis C Screening [...] this encounter Medical Devices Implanted Type Area Driftman Device Identifier Shelf Expiration Date Model / Serial / Lot Lens 16.5 Mx60 - [id number] - [id number] Implanted:Qty: 1 on 08/05/2017 by Navin Benjamin MD at OR [facility] Left: Eye BAUSCH & LOMB : SURGICAL 03/05/2020 MX60-16.5 / [id number] / Lens 14.0 Mx60 - [id number] - [id number] Implanted:Qty: 1 on 08/21/2017 by Navin Benjamin MD at OR [facility] Right: Eye BAUSCH & LOMB : SURGICAL 06/05/2018 MX60-14.0 / [id number] / documented as of this encounter Visit [...] 12:00 PM 02/01/2008 8:00 PM Care Teams Nanotechnology Engineering Technician Relationship Specialty Start Date End Date Guerline Muniz MD [address] [place] [address] PCP - General Family Medicine 01/01/22 documented as of this encounter
--- OUTSIDE RECORDS SUMMARY | 2024-02-22 12:49 | External Medical Summary | Summary of Care ---
Author Name Unknown Organization [facility] Address [address] [place] [place] [address] Phone [phone] Care Team Providers Care Education Administrator Name Role Phone Lane Malone MD Primary Care Provider +1- [phone] Reason for Visit * Reason Onset Date Comments Med Request 01/19/2024 Encounter Details Date Type Department Care Team (Late st Contact Info) Description 01/19/2024 Telephone [facility] [address] [place] [address] Lane Malone MD [address] [place] [address] Med Request Allergies No known active allergiesdocumented as of this encounter (statuses as of 01/20/2024) Medications Medication Sig Dispensed Refills Start Date [...] at bedtime. 180 Capsule 1 10/15/2023 Active [place] Carbonate 300 MG Oral Capsule (Eskalith) TAKE [...] as of this encounter (statuses as of 01/20/2024) Active Problems Problem Noted Date Diagnosed Date [...] as of this encounter (statuses as of 01/20/2024) Resolved Problems Problem Noted Date Diagnosed Date [...] as of this encounter (statuses as of 01/20/2024) Immunizations Name Administration Dates Next Due TDAP [...] encounter Miscellaneous Notes * Telephone Encounter - Ailyn Cotter PHARM Tech - 01/20/2024 5:39 PM EDT Pt calling in advising the 7.5 is on backorder and pharmacy is unsure when they will have it, wants to stay on the 5 mg for now instead of increasing the dose as they have the 5 mg in stock, please disregard dose increase for now. Thank you, Ailyn Cotter [facility] Inlayer II Centralized Clincal Pharmacy Services (CCPS) (formerly [...] for a high dose Preferred pharmacy: [facility] Patient unwilling to speak with pharmacist at this time. Routing to pharmacist pool to advise. Thank you, Keny Hawk, Ep Tech Corporate Travel Manager 1 Centralized Clinical Pharmacy Services (CCPS) (Formerly Telepharmacy) 01/19/2024,12:44 PM documented in this encounter Plan of Treatment Upcoming Encounters Date Type Department Care Team (Late st Contact Info) Description 02/25/2024 8:30 AM EDT Telemedicine Psychiatry, [address] [address] Jeremy Lezama MD [address] [place] [address] 06/10/2024 9:40 AM EDT Office Visit [facility] [address] [place] [address] Lane Malone MD [address] [place] [address] 10/13/2024 10:40 AM EST Office Visit Otolaryngology [facility] [address] [place] [address] Cleve Gardner PA-C [address] [place] [address] Scheduled Procedures Name Priority Associated Diagnoses Date/Ti [...] Additional history exists CKD PHOS USE SMARTSET 81377 05/26/2024 05/26/2023 Influenza Vaccine (FLU shot) (Season Ended) 2024 CKD HGB USE SMARTSET 66129 11/28/202411/28, 11/29/2022, 11/28/2021, Additional history exists HbA1c [...] this encounter Medical Devices Implanted Type Area Space Studies Faculty Member Device Identifier Shelf Expiration Date Model / Serial / Lot Lens 16.5 Mx60 - [id number] - [id number] Implanted:Qty: 1 on 08/05/2017 by Navin Benjamin MD at OR [facility] Left: Eye BAUSCH & LOMB : SURGICAL 03/05/2020 MX60-16.5 / [id number] / Lens 14.0 Mx60 - [id number] - [id number] Implanted:Qty: 1 on 08/21/2017 by Navin Benjamin MD at OR [facility] Right: Eye BAUSCH & LOMB : SURGICAL 06/05/2018 MX60-14.0 / [id number] / documented as of this encounter Advance [...] 12:00 PM 02/01/2008 8:00 PM Care Teams Education Administrator Relationship Specialty Start Date End Date Lane Malone MD [address] [place] [address] PCP - General Family Medicine 01/01/22 documented as of this encounter
--- OUTSIDE RECORDS SUMMARY | 2024-02-22 12:49 | External Medical Summary | Summary of Care ---
Author Name Unknown Organization [facility] Address [address] [place] [facility] [facility] [place] [address] Phone [phone] Care Team Providers Care User Experience Analyst Name Role Phone Lane Malone MD Primary Care Provider +1- [phone] Reason for Visit * Reason Onset Date Comments Med Request 01/19/2024 Encounter Details Date Type Department Care Team (Late st Contact Info) Description 01/19/2024 Telephone [facility] [address] [place] [address] Lane Malone MD [address] [place] [address] Med Request Allergies No known [...] at bedtime. 180 Capsule 1 10/15/2023 Active [place] Carbonate 300 MG Oral Capsule (Eskalith) TAKE [...] Notes * Telephone Encounter - Yuli Yan, engineering psychologist - 02/13/2024 2:59 PM EDT Patient spouse called in to make us aware that mounjaro is unavailable at pharmacy in the 7mg and 5mg doses. He is wondering what they should do. He states that she has enough for this week and next Thank you, Yuli Yan Professor Of Languages I Centralized Clinical Pharmacy Services (CCPS)(formerly Telepharmacy) [...] for now. Thank you, Ailyn Cotter CPhT Material Hauler II Centralized Clincal Pharmacy Services (CCPS) (formerly [...] high dose Preferred pharmacy: [facility] [address] Patient unwilling to speak with pharmacist at this time. Routing to pharmacist pool to advise. Thank you, Keny Hawk, Marine Chronometer Assembler Professor Of Languages 1 Centralized Clinical Pharmacy Services (CCPS) (Formerly Telepharmacy) 01/19/2024,12:44 PM documented in this encounter Plan of Treatment Upcoming Encounters Date Type Department Care Team (Late st Contact Info) Description 02/25/2024 8:30 AM EDT Telemedicine Psychiatry, [facility] [address] [place] [address] Jeremy Lezama MD [address] [place] [address] 06/10/2024 9:40 AM EDT Office Visit [facility] [address] [place] [address] Lane Malone MD [address] [place] [address] 10/13/2024 10:40 AM EST Office Visit Otol[facility]ology [facility] [address] [place] [address] Cleve Gardner PA-C [address] [place] [address] Scheduled Procedures Name Priority Associated Diagnoses Date/Ti [...] Additional history exists CKD PHOS USE SMARTSET 69395 05/26/2024 05/26/2023 Influenza Vaccine (FLU shot) (Season Ended) 2024 CKD HGB USE SMARTSET 04478 11/28/202411/28, 11/29/2022, 11/28/2021, Additional history exists HbA1c [...] this encounter Medical Devices Implanted Type Area Portable Grinding Machine Operator Device Identifier Shelf Expiration Date Model / Serial / Lot Lens 16.5 Mx60 - [id number] - [id number] Implanted:Qty: 1 on 08/05/2017 by Navin Benjamin MD at OR [facility] Left: Eye BAUSCH & LOMB : SURGICAL 03/05/2020 MX60-16.5 / [id number] / Lens 14.0 Mx60 - [id number] - [id number] Implanted:Qty: 1 on 08/21/2017 by Navin Benjamin MD at OR [facility] Right: Eye BAUSCH & LOMB : SURGICAL 06/05/2018 MX60-14.0 / [id number] / documented as of this encounter Advance [...] 12:00 PM 02/01/2008 8:00 PM Care Teams User Experience Analyst Relationship Specialty Start Date End Date Lane Malone MD [address] [place] [address] PCP - General Family Medicine 01/01/22 documented as of this encounter
--- OUTSIDE RECORDS SUMMARY | 2024-02-22 12:49 | External Medical Summary | Summary of Care ---
Author Name Unknown Organization [facility] Address [address] [place] [place] [address] Phone [phone] Care Team Providers Care Pulley Man Name Role Phone Lane Malone MD Primary Care Provider +1- [phone] Reason for Visit * Reason Onset Date Comments Med Request 01/19/2024 Encounter Details Date Type Department Care Team (Late st Contact Info) Description 01/19/2024 Telephone [facility] [address] [place] [address] [address] Malone MD [address] [place] [address] Med Request Allergies No known [...] at bedtime. 180 Capsule 1 10/15/2023 Active [place] Carbonate 300 MG Oral Capsule (Eskalith) TAKE [...] encounter Miscellaneous Notes * Telephone Encounter - Lane Malone MD [...] dose increase for now. Thank you, Ailyn Cotter, [facility] Puzzle Assembler II Centralized Clincal Pharmacy Services (CCPS) (formerly [...] due for a high dose Preferred pharmacy: [facility] Patient unwilling to speak with pharmacist at this time. Routing to pharmacist pool to advise. Thank you, Keny Hawk, Human Resource Adviser Fabrication Inspector 1 Centralized Clinical Pharmacy Services (CCPS) (Formerly Telepharmacy) 01/19/2024,12:44 PM documented in this encounter Plan of Treatment Upcoming Encounters Date Type Department Care Team (Late st Contact Info) Description 02/25/2024 8:30 AM EDT Telemedicine Psychiatry, [facility] [address] [place] [address] Jeremy Lezama MD [address] [facility] [place] [address] 06/10/2024 9:40 AM EDT Office Visit [facility] [address] [place] [address] [address] Malone MD [address] [place] [address] 10/13/2024 10:40 AM EST Office Visit [facility] [address] [facility] [address] Cleve Gardner PA-C [address] [facility] [address] Scheduled Procedures Name Priority Associated Diagnoses Date/Ti [...] YRS,AGES 21-100 10/23/2020 10/23/2015, 07/18/2011 COVID-19 Vaccine (1 - 2022- season) 2023 GFR 11/26/2023 05/26/2023, 11/07, 11/25/2022, Additional history exists CKD PHOS USE SMARTSET 94109 05/26/2024 05/26/2023 Influenza Vaccine (FLU shot) (Season Ended) 2024 CKD HGB USE SMARTSET 69075 11/28/202411/28, 11/29/2022, 11/28/2021, Additional history exists HbA1c [...] this encounter Medical Devices Implanted Type Area House Player Device Identifier Shelf Expiration Date Model / Serial / Lot Lens 16.5 Mx60 - [id number] - [id number] Implanted:Qty: 1 on 08/05/2017 by Navin Benjamin MD at OR [facility] Left: Eye BAUSCH & LOMB : SURGICAL 03/05/2020 MX60-16.5 / [id number] / Lens 14.0 Mx60 - [id number] - [id number] Implanted:Qty: 1 on 08/21/2017 by Navin Benjamin MD at OR [facility] Right: Eye BAUSCH & LOMB : SURGICAL 06/05/2018 MX60-14.0 / [id number] / documented as of this encounter Advance [...] 12:00 PM 02/01/2008 8:00 PM Care Teams Pulley Man Relationship Specialty Start Date End Date Lane Malone MD [address] [facility] [place] [address] PCP - General Family Medicine 01/01/22 documented as of this encounter
--- OUTSIDE RECORDS SUMMARY | 2024-02-22 12:49 | External Medical Summary | Summary of Care ---
Author Name Unknown Organization [facility] Address [address] [place] [facility] [place] [place] [address] Phone [phone] Care Team Providers Care Security Nurse Name Role Phone Guerline Muniz MD Primary Care Provider +1- [phone] Reason for Visit * Reason Onset Date Comments Medication Refill 01/12/2024 Encounter Details Date Type Department Care Team (Late st Contact Info) Description 01/12/2024 Refill [facility] [address] [place] [address] Guerline Muniz MD [address] [place] [address] Allergies No known active allergiesdocumented as of this encounter (statuses as of 01/14/2024) Medications Medication Sig Dispensed Refills Start Date [...] at bedtime. 180 Capsule 1 10/15/2023 Active [place] Carbonate 300 MG Oral Capsule (Eskalith) TAKE [...] per day 180 Tablet 1 01/14/2024 Active Pantoprazole Sodium 40 MG Oral Tablet Delayed Release (Protonix) Take 1 tab by mouth twice per day 180 Tablet 1 05/29/2023 01/12/20 24 Discontinu ed(Refill) documented as of this encounter (statuses as of 01/14/2024) Active Problems Problem Noted Date Diagnosed Date [...] as of this encounter (statuses as of 01/14/2024) Resolved Problems Problem Noted Date Diagnosed Date [...] as of this encounter (statuses as of 01/14/2024) Immunizations Name Administration Dates Next Due TDAP [...] encounter Miscellaneous Notes * Telephone Encounter - Rishabh Martínez [facility] - 01/14/2024 10:20 AM EDT Signed Prescriptions: Disp Refills Pantoprazole Sodium 40 MG Oral Tablet [place]*180 Ta*1 Sig: Take 1 tab by mouth twice per dayAuthorizing Provider: GUERLINE MUNIZ User: RISHABH MARTÍNEZ [place] documented in this encounter Plan of Treatment Upcoming Encounters Date Type Department Care Team (Late st Contact Info) Description 01/16/2024 9:30 AM EDT Office Visit [facility]enterology, [facility] [address] [facility] [place] [address] Vale Engel CRNP [address] [place] [address] 02/25/2024 8:30 AM EDT Telemedicine Psychiatry, [address] [place] [address] Jeremy Lezama MD [address] [place], [place] [address] 06/10/2024 9:40 AM EDT Office Visit [facility] [address] [place] [address] Guerline Muniz MD [address] [place], [place] [address] 10/13/2024 10:40 AM EST Office Visit Otolaryngology [facility] [address] [facility] [place] [address] lCeve Gardner PADelmyC [address] [place] [address] Scheduled Procedures Name Priority Associated Diagnoses Date/Ti [...] Additional history exists CKD PHOS USE SMARTSET 30853 05/26/2024 05/26/2023 Influenza Vaccine (FLU shot) (Season Ended) 2024 CKD HGB USE SMARTSET 46080 11/28/202411/28, 11/29/2022, 11/28/2021, Additional history exists HbA1c [...] this encounter Medical Devices Implanted Type Area Pension Fund Manager Device Identifier Shelf Expiration Date Model / Serial / Lot Lens 16.5 Mx60 - [id number] - [id number] Implanted:Qty: 1 on 08/05/2017 by Navin Benjamin MD at OR [facility] Left: Eye BAUSCH & LOMB : SURGICAL 03/05/2020 MX60-16.5 / [id number] / Lens 14.0 Mx60 - [id number] - [id number] Implanted:Qty: 1 on 08/21/2017 by Navin Benjamin MD at OR [facility] Right: Eye BAUSCH & LOMB : SURGICAL 06/05/2018 MX60-14.0 / [id number] / documented as of this encounter Advance [...] 12:00 PM 02/01/2008 8:00 PM Care Teams Security Nurse Relationship Specialty Start Date End Date Guerline Muniz MD [address] [place] [address] PCP - General Family Medicine 01/01/22 documented as of this encounter
--- OUTSIDE RECORDS SUMMARY | 2024-02-22 12:49 | External Medical Summary | Summary of Care ---
Author Name Unknown Organization [facility] Address [address] [place] [place] [address] Phone [phone] Care Team Providers Care Leather Softener Name Role Phone Lane Malone MD Primary Care Provider +1- [phone] Reason for Visit * Reason Comments eRx-Medication Refill Encounter Details Date Type Department Care Team (Late st Contact Info) Description 01/13/2024 Refill [facility] [address] [place] [address] [address] Malone MD [address] [place] [address] Allergies No known active allergiesdocumented [...] at bedtime. 180 Capsule 1 10/15/2023 Active [place] Carbonate 300 MG Oral Capsule (Eskalith) TAKE [...] declined Laxative abuse Eating disorder Overview: hospitalized, [place], left AMA, mixed type documented as of [...] encounter Miscellaneous Notes * Telephone Encounter - Mario Wise, [facility] - 01/14/2024 2:54 PM EDT Refused Prescriptions: Disp Refills Pantoprazole Sodium 40 MG Oral Tablet [place]*180 Ta*3 Sig: TAKE ONE TABLET BY MOUTH 2 TIMES A DAYRefused By: MARIO WISE MReason for Refusal: Duplicate Requ est documented in this encounter Plan of Treatment Upcoming Encounters Date Type Department Care Team (Late st Contact Info) Description 01/16/2024 9:30 AM EDT Office Visit Gastroenterology, [facility] [address] [facility] [place] [address] Vale Engel CRNP [address] [facility] [place] [address] 02/25/2024 8:30 AM EDT Telemedicine Psychiatry, [address] [place] [address] Jeremy Lezama MD [address] [place], [place] [address] 06/10/2024 9:40 AM EDT Office Visit [facility] [address] [place] [address] [address] Malone MD [address] [place] [address] 10/13/2024 10:40 AM EST Office Visit Otol[facility] [address] [place] [id number] Cleve Gardnre PA-C [address] [facility] [place] [address] Scheduled Procedures Name Priority Associated Diagnoses Date/Ti [...] Additional history exists CKD PHOS USE SMARTSET 51586 05/26/2024 05/26/2023 Influenza Vaccine (FLU shot) (Season Ended) 2024 CKD HGB USE SMARTSET 78914 11/28/202411/28, 11/29/2022, 11/28/2021, Additional history exists HbA1c [...] this encounter Medical Devices Implanted Type Area Fire Protection Fabricator Device Identifier Shelf Expiration Date Model / Serial / Lot Lens 16.5 Mx60 - [id number] - [id number] Implanted:Qty: 1 on 08/05/2017 by Navin Benjamin MD at OR [facility] Left: Eye BAUSCH & LOMB : SURGICAL 03/05/2020 MX60-16.5 / [id number] / Lens 14.0 Mx60 - [id number] - [id number] Implanted:Qty: 1 on 08/21/2017 by Navin Benjamin MD at OR [facility] Right: Eye BAUSCH & LOMB : SURGICAL 06/05/2018 MX60-14.0 / [id number] / documented as of this encounter Advance [...] 12:00 PM 02/01/2008 8:00 PM Care Teams Leather Softener Relationship Specialty Start Date End Date Lane Malone MD [address] [place] [address] PCP - General Family Medicine 01/01/22 documented as of this encounter
--- OUTSIDE RECORDS SUMMARY | 2024-02-22 12:49 | External Medical Summary | Summary of Care ---
Author Name Unknown Organization [facility] Address [address] [place] [facility] [place] [place] [address] Phone [phone] Care Team Providers Care Prison Psychiatrist Name Role Phone Lane Malone MD Primary Care Provider +1- [phone] Reason for Visit * Reason Onset Date Comments Med Request 01/19/2024 Encounter Details Date Type Department Care Team (Late st Contact Info) Description 01/19/2024 Telephone [facility] [address] [place] [address] [address] Malone MD [address] [place] [address] Med Request Allergies No known active allergiesdocumented as of this encounter (statuses as of 01/19/2024) Medications Medication Sig Dispensed Refills Start Date [...] at bedtime. 180 Capsule 1 10/15/2023 Active [place] Carbonate 300 MG Oral Capsule (Eskalith) TAKE [...] as of this encounter (statuses as of 01/19/2024) Active Problems Problem Noted Date Diagnosed Date [...] as of this encounter (statuses as of 01/19/2024) Resolved Problems Problem Noted Date Diagnosed Date [...] as of this encounter (statuses as of 01/19/2024) Immunizations Name Administration Dates Next Due TDAP [...] encounter Miscellaneous Notes * Telephone Encounter - Kimmie Hawk, woodworking machine offbearer - 01/19/2024 12:44 PM EDT Pt calling in to request a dose change on their Mounjaro 5 MG/0.5ML Subcutaneous Solution Pen-injector (Tirzepatide). Current dose: 5 MG/0.5ML Requested dose: 7.5MG Reason for request: due for a high dose Preferred pharmacy: [facility] [address] Patient unwilling to speak with pharmacist at this time. Routing to pharmacist pool to advise. Thank you, Keny Hawk, Tool Tender Coal Weigher 1 [facility]ized Clinical Pharmacy Services (CCPS) (Formerly Telepharmacy) 01/19/2024,12:44 PM documented in this encounter Plan of Treatment Upcoming Encounters Date Type Department Care Team (Late st Contact Info) Description 02/25/2024 8:30 AM EDT Telemedicine Psychiatry, [address] [address] Jeremy Lezama MD [address] [place] [address] 06/10/2024 9:40 AM EDT Office Visit [facility] [address] [place] [address] [address] Malone MD [address] [place] [address] 10/13/2024 10:40 AM EST Office Visit Otolaryngology [facility] [address] [place] [address] Cleve Gardner PA-C [address] [place] [address] Scheduled Procedures Name Priority Associated Diagnoses Date/Ti [...] 10/23/2015, 07/18/2011 COVID-19 Vaccine (2022- season) 2023 GFR 11/26/2023 05/26/2023, 11/07, 11/25/2022, Additional history exists CKD PHOS USE SMARTSET 46399 05/26/2024 05/26/2023 Influenza Vaccine (FLU shot) (Season Ended) 2024 CKD HGB USE SMARTSET 07733 11/28/202411/28, 11/29/2022, 11/28/2021, Additional history exists HbA1c [...] this encounter Medical Devices Implanted Type Area Scheduling Clerk Device Identifier Shelf Expiration Date Model / Serial / Lot Lens 16.5 Mx60 - [id number] - [id number] Implanted:Qty: 1 on 08/05/2017 by Navin Benjamin MD at OR [facility] Left: Eye BAUSCH & LOMB : SURGICAL 03/05/2020 MX60-16.5 / [id number] / Lens 14.0 Mx60 - [id number] - [id number] Implanted:Qty: 1 on 08/21/2017 by Navin Benjamin MD at [facility] Right: Eye BAUSCH & LOMB : SURGICAL 06/05/2018 MX60-14.0 / [id number] / documented as of this encounter Advance [...] 12:00 PM 02/01/2008 8:00 PM Care Teams Prison Psychiatrist Relationship Specialty Start Date End Date Lane Malone MD [address] [place] [address] PCP - General Family Medicine 01/01/22 documented as of this encounter
--- OUTSIDE RECORDS SUMMARY | 2024-02-22 12:49 | External Medical Summary | Summary of Care ---
Author Name Unknown Organization [facility] Address [address] [place] [facility] [place] [address] Phone [phone] Care Team Providers Care Director Of Securities And Real Estate Name Role Phone Lane Malone MD Primary Care Provider +1- [phone] Reason for Visit * Reason Onset Date Comments Med Request 01/19/2024 Encounter Details Date Type Department Care Team (Late st Contact Info) Description 01/19/[address] [facility] [address] [place] [address] [address] Malone MD [address] [place] [address] Med Request Allergies No known [...] at bedtime. 180 Capsule 1 10/15/2023 Active [place] Carbonate 300 MG Oral Capsule (Eskalith) TAKE [...] encounter Miscellaneous Notes * Addendum Note - Carleen Coronel [facility] - 01/19/2024 1:08 PM EDTAddended by: CARLEEN CORONEL on: 01/19/2024 01:08 PM Modules accepted: Orders * Telephone Encounter - Kimmie Hawk flatbed owner operator - 01/19/2024 12:44 PM EDT Pt calling in to request a dose change on their Mounjaro 5 MG/0.5ML Subcutaneous Solution Pen-injector (Tirzepatide). Current dose: 5 MG/0.5ML Requested dose: 7.5MG Reason for request: due for a high dose Preferred pharmacy: [facility] [address] Patient unwilling to speak with pharmacist at this time. Routing to pharmacist pool to advise. Thank you, Keny Hawk, Statistical Methods Professor Residential Nurse 1 Centralized Clinical Pharmacy Services (CCPS) (Formerly Telepharmacy) 01/19/2024,12:44 PM documented in this encounter Plan of Treatment Upcoming Encounters Date Type Department Care Team (Late st Contact Info) Description 02/25/2024 8:30 AM EDT Telemedicine Psychiatry, [address] [place] [address] Jeremy Lezama MD [address] [place] [address] 06/10/2024 9:40 AM EDT Office Visit [facility] [address] [place] [address] Lane Malone MD [address] [place] [address] 10/13/2024 10:40 AM EST Office Visit Otolaryngology [facility] [address] [place] [id number] Cleve Gardner PA-C [address] [place] [address] Scheduled Procedures Name Priority Associated Diagnoses Date/Ti [...] Additional history exists CKD PHOS USE SMARTSET 29187 05/26/2024 05/26/2023 Influenza Vaccine (FLU shot) (Season Ended) 2024 CKD HGB USE SMARTSET 58993 11/28/202411/28, 11/29/2022, 11/28/2021, Additional history exists HbA1c [...] this encounter Medical Devices Implanted Type Area Instrument Processing Tech Device Identifier Shelf Expiration Date Model / Serial / Lot Lens 16.5 Mx60 - [id number] - [id number] Implanted:Qty: 1 on 08/05/2017 by Navin Benjamin MD at OR [facility] Left: Eye BAUSCH & LOMB : SURGICAL 03/05/2020 MX60-16.5 / [id number] / Lens 14.0 Mx60 - [id number] - [id number] Implanted:Qty: 1 on 08/21/2017 by Navin Benjamin MD at OR [facility] Right: Eye BAUSCH & LOMB : SURGICAL 06/05/2018 MX60-14.0 / [id number] / documented as of this encounter Advance [...] 12:00 PM 02/01/2008 8:00 PM Care Teams Director Of Securities And Real Estate Relationship Specialty Start Date End Date Lane Malone MD [address] [place] [address] PCP - General Family Medicine 01/01/22 documented as of this encounter
--- OUTSIDE RECORDS SUMMARY | 2024-02-22 12:49 | External Medical Summary | Summary of Care ---
Author Name Unknown Organization [facility] Address [address] [facility] [place] [address] Phone [phone] Care Team Providers Care Print Line Supervisor Name Role Phone Lane Malone MD Primary Care Provider +1- [phone] Reason for Visit * Reason Onset Date Comments Med Request 01/19/2024 Encounter Details Date Type Department Care Team (Late st Contact Info) Description 01/19/[address] [facility] [address] [place] [address] [address] Malone MD [address] [place] [address] Med Request Allergies No known [...] at bedtime. 180 Capsule 1 10/15/2023 Active [place] Carbonate 300 MG Oral Capsule (Eskalith) TAKE [...] medication Thank you, Marisela Fiore CPhT II Checker Product Design Centralized Clinical Pharmacy Services (CCPS) (Formerly Telepharmacy) 02/18/2024, 2:03 PM * Telephone Encounter - Yuli Yan ecology professor - 02/13/2024 2:59 PM EDT Patient spouse called in to make us aware that mounjaro is unavailable at pharmacy in the 7mg and 5mg doses. He is wondering what they should do. He states that she has enough for this week and next Thank you, Yuli Yan [place] Nurse I Centralized Clinical Pharmacy Services (CCPS)(formerly Telepharmacy) 02/13/2024,3:00 PM * Telephone Encounter - Lane Malone MD - 01/20/2024 9:45 PM EDT Noted * Telephone Encounter - Ailyn Ctoter ecology professor - 01/20/2024 5:39 PM EDT Pt calling in advising the 7.5 is on backorder and pharmacy is unsure when they will have it, wants to stay on the 5 mg for now instead of increasing the dose as they have the 5 mg in stock, please disregard dose increase for now. Thank you, Ailyn Cotter CPhT Checker Product Design II Centralized Clincal Pharmacy Services (CCPS) (formerly Telepharmacy) 01/20/2024,5:40 PM * Addendum Note - Carleen Coronel [facility] - 01/19/2024 1:08 PM EDTAddended by: CARLEEN CORONEL on: 01/19/2024 01:08 PM Modules accepted: Orders * Telephone Encounter - Kimmie Hawk ecology professor - 01/19/2024 12:44 PM EDT Pt calling in to request a dose change on their Mounjaro 5 MG/0.5ML Subcutaneous Solution Pen-injector (Tirzepatide). Current dose: 5 MG/0.5ML Requested dose: 7.5MG Reason for request: due for a high dose Preferred pharmacy: [facility] On license of [facility] Patient unwilling to speak with pharmacist at this time. Routing to pharmacist pool to advise. Thank you, Keny Hawk, Plate Put In Worker County Nurse 1 Centralized Clinical Pharmacy Services (CCPS) (Formerly Telepharmacy) 01/19/2024,12:44 PM documented in this encounter Plan of Treatment Upcoming Encounters Date Type Department Care Team (Late st Contact Info) Description 02/25/2024 8:30 AM EDT Telemedicine Psychiatry, [address] [place] [address] Jeremy Lezama MD [address] [place] [address] 06/10/2024 9:40 AM EDT Office Visit [facility] [address] [place] [address] Lane Malone MD [address] [place] [address] 10/13/2024 10:40 AM EST Office Visit Otolaryngology [facility] 132 [facility] [place] [address] Cleve Gardner PA-C [address] [place] [address] Scheduled Procedures Name Priority Associated Diagnoses Date/Ti [...] Additional history exists CKD PHOS USE SMARTSET 10071 05/26/2024 05/26/2023 Influenza Vaccine (FLU shot) (Season Ended) 2024 CKD HGB USE SMARTSET 61145 11/28/202411/28, 11/29/2022, 11/28/2021, Additional history exists HbA1c [...] this encounter Medical Devices Implanted Type Area Financial Analysis Advisor Device Identifier Shelf Expiration Date Model / Serial / Lot Lens 16.5 Mx60 - [id number] - [id number] Implanted:Qty: 1 on 08/05/2017 by Navin Benjamin MD at OR [facility] Left: Eye BAUSCH & LOMB : SURGICAL 03/05/2020 MX60-16.5 / [id number] / Lens 14.0 Mx60 - [id number] - [id number] Implanted:Qty: 1 on 08/21/2017 by Navin Benjamin MD at OR [facility] Right: Eye BAUSCH & LOMB : SURGICAL 06/05/2018 MX60-14.0 / [id number] / documented as of this encounter Advance [...] 12:00 PM 02/01/2008 8:00 PM Care Teams Print Line Supervisor Relationship Specialty Start Date End Date Lane Malone MD [address] [place] [address] PCP - General Family Medicine 01/01/22 documented as of this encounter
--- OUTSIDE RECORDS SUMMARY | 2024-02-22 12:49 | External Medical Summary | Summary of Care ---
Author Name Unknown Organization [facility] Address [address] [place] [address] Phone [phone] Care Team Providers Care Boarding Specialist Name Role Phone Lane Malone MD Primary Care Provider +1- [phone] Reason for Visit * Reason Onset Date Comments Medication Refill 12/13/2023 Encounter Details Date Type Department Care Team (Late st Contact Info) Description 12/13/2023 Refill Psychiatry, [address] [address] Jeremy Lezama MD [address] [place] [address] Allergies No known active allergiesdocumented [...] at bedtime. 180 Capsule 1 10/15/2023 Active [place] Carbonate 300 MG Oral Capsule (Eskalith) TAKE [...] declined Laxative abuse Eating disorder Overview: hospitalized, [place], left AMA, mixed type documented as of [...] Encounter - Margo España CPhT - 12/17/2023 11:22 AM EDT Please review my previous message, we are aware RX was sent on 12/15/2023. Pt does not have enough medication until 12/24/2023, needs Rx resent with fill date of 12/22/2023. Thank you, Margo España [facility] 1 Parks Worker Centralized Clinical Pharmacy Services (CCPS) (formerly Telepharmacy) 12/17/2023, 11:24 AM * Telephone Encounter - Margo España CPhT - 12/17/2023 9:25 AM EDT Pt EC calling stating pt only has enough Lisdexamfetamine Dismesylate 70mg to last until 12/22/2023. If applicable, pt EC is requesting RX be resent to [facility] [address] [place] [address] with a fill date of 12/22/2023. Did advise caller that pt should have enough medication to last until 12/24/2023, but caller states there are only 5 pills left in the bottle. Thank you, Margo España [facility] 1 [address] Worker Centralized Clinical Pharmacy Services (CCPS) (formerly Telepharmacy) [...] Drug Monitoring Program in compliance with the [facility] regulations before prescribing a controlled substance. [...] Description 01/05/2024 2:00 PM EDT Telemedicine Psychiatry, [address] [address] Jeremy Lezama MD [address] [place] [address] 03/19/2024 9:00 AM EDT Office Visit Gastroenterology, [facility] 132 [facility] [place] [address] Vale Engel CRNP 132 [facility] [place] [address] 06/10/2024 9:40 AM EDT Office Visit [facility] [address] [place] [address] Lane Malone MD [address] [place] [address] 10/13/2024 10:40 AM EST Office Visit Otolaryngology [facility] 132 [facility] [place] [address] Cleve Gardner PA-C 132 [facility] [place] [address] Scheduled Procedures Name Priority Associated Diagnoses Date/Ti [...] 10/23/2020 10/23/2015, 07/18/2011 COVID-19 Vaccine ( - 2022-24 season) 2023 Influenza Vaccine (FLU shot) (#1) 2023 GFR 11/26/2023 05/26/2023, 11/07, 11/25/2022, Additional history exists CKD PHOS USE SMARTSET 65544 05/26/2024 05/26/2023 CKD HGB USE SMARTSET 26722 11/28/202411/28, 11/29/2022, 11/28/2021, Additional history exists HbA1c [...] this encounter Medical Devices Implanted Type Area Biomedical Equipment Technician Device Identifier Shelf Expiration Date Model / Serial / Lot Lens 16.5 Mx60 - [id number] - [id number] Implanted:Qty: 1 on 08/05/2017 by Navin Benjamin MD at OR [facility] Left: Eye BAUSCH & LOMB : SURGICAL 03/05/2020 MX60-16.5 / [id number] / Lens 14.0 Mx60 - [id number] - [id number] Implanted:Qty: 1 on 08/21/2017 by Navin Benjamin MD at OR [facility] Right: Eye BAUSCH & LOMB : SURGICAL 06/05/2018 MX60-14.0 / [id number] / documented as of this encounter Advance [...] 12:00 PM 02/01/2008 8:00 PM Care Teams Boarding Specialist Relationship Specialty Start Date End Date Lane Malone MD [address] [facility] [place] [address] PCP - General Family Medicine 01/01/22 documented as of this encounter
--- OUTSIDE RECORDS SUMMARY | 2024-02-22 12:49 | External Medical Summary | Summary of Care ---
Author Name Unknown Organization [facility] Address [address] [place] [address] Phone [phone] Care Team Providers Care Household Cook Name Role Phone Lane Malone MD Primary Care Provider +1- [phone] Reason for Visit * Reason Onset Date Comments Medication Refill 12/13/2023 Encounter Details Date Type Department Care Team (Late st Contact Info) Description 12/13/2023 Refill Psychiatry, [address] [address] Jeremy Lezama MD [address] [place] [address] Allergies No known active allergiesdocumented [...] at bedtime. 180 Capsule 1 10/15/2023 Active [place] Carbonate 300 MG Oral Capsule (Eskalith) TAKE [...] declined Laxative abuse Eating disorder Overview: hospitalized, [place], left AMA, mixed type documented as of [...] date of 12/22/2023. Thank you, Margo España [facility] 1 Senior Assistant Manager Centralized Clinical Pharmacy Services (CCPS) (formerly Telepharmacy) 12/17/2023, 11:24 AM * Telephone Encounter - Margo España CPhT - 12/17/2023 9:25 AM EDT Pt EC calling stating pt only has enough Lisdexamfetamine Dismesylate 70mg to last until 12/22/2023. If applicable, pt EC is requesting RX be resent to [facility] [address] [place] [address] with a fill date of 12/22/2023. Did advise caller that pt should have enough medication to last until 12/24/2023, but caller states there are only 5 pills left in the bottle. Thank you, Margo España [facility] 1 Senior Assistant Manager Centralized Clinical Pharmacy Services (CCPS) (formerly Telepharmacy) [...] Drug Monitoring Program in compliance with the [facility] regulations before prescribing a controlled substance. [...] Description 01/05/2024 2:00 PM EDT Telemedicine Psychiatry, [address] [address] Jeremy Lezama MD [address] [place] [address] 03/19/2024 9:00 AM EDT Office Visit Gastroenterology, [facility] 132 [facility] [place] [address] Vale Engel CRNP 132 [facility] [place] [address] 06/10/2024 9:40 AM EDT Office Visit [facility] [address] [place] [address] Lane Malone MD [address] [place] [address] 10/13/2024 10:40 AM EST Office Visit Otolaryngology [facility] 132 [facility] [place] [address] Cleve Gardner PA-C 132 [facility] [place] [address] Scheduled Procedures Name Priority Associated Diagnoses Date/Ti [...] Additional history exists CKD PHOS USE SMARTSET 88369 05/26/2024 05/26/2023 CKD HGB USE SMARTSET 51179 11/28/202411/28, 11/29/2022, 11/28/2021, Additional history exists HbA1c [...] this encounter Medical Devices Implanted Type Area Open Developer Operator Device Identifier Shelf Expiration Date Model / Serial / Lot Lens 16.5 Mx60 - [id number] - [id number] Implanted:Qty: 1 on 08/05/2017 by Navin Benjamin MD at OR [facility] Left: Eye BAUSCH & LOMB : SURGICAL 03/05/2020 MX60-16.5 / [id number] / Lens 14.0 Mx60 - [id number] - [id number] Implanted:Qty: 1 on 08/21/2017 by Navin Benjamin MD at OR [facility] Right: Eye BAUSCH & LOMB : SURGICAL 06/05/2018 MX60-14.0 / [id number] / documented as of this encounter Advance [...] 12:00 PM 02/01/2008 8:00 PM Care Teams Household Cook Relationship Specialty Start Date End Date Lane Malone MD [address] [facility] [place] [address] PCP - General Family Medicine 01/01/22 documented as of this encounter
--- OUTSIDE RECORDS SUMMARY | 2024-02-22 12:49 | External Medical Summary | Summary of Care ---
Author Name Unknown Organization [facility] Address [address] [place] [address] Phone [phone] Care Team Providers Care Plastic Eye Technician Name Role Phone Lane Kumari MD Primary Care Provider +1- [phone] Reason for Referral * Evaluate & Treat - Unlimited Visits (Within 30 days (routine)) - Pending Review Specialty Diagnoses / Procedures Referred By Anjel contreras Referred To Contact Gastroenterology Diagnoses Gastroesophageal reflux disease with esophagitis without hemorrhage Lane Kumari MD [address] [facility] [place] [address] Referral ID Status Reason Start Date Expiration Date Visits Requested Visits Authorized [id number] Pending Review Specialty Services Required 12/15/[phone] Question Answer Referral Priority Within 30 days (routine) Where should this appointment be scheduled? [facility] For what condition is the patient being referred? All Gastro Conditions Reason for Visit * Reason Onset Date Comments Referral 12/11/2023 Encounter Details Date Type Department Care Team (Late st Contact Info) Description 12/11[facility]2023 [facility] [address] [place] [address] [address] Kumari MD [address] [facility] [place] [address] Referral Allergies No known active allergiesdocumented as of this encounter (statuses as of 12/15/2023) Medications Medication Sig Dispensed Refills Start Date [...] at bedtime. 180 Capsule 1 10/15/2023 Active [place] Carbonate 300 MG Oral Capsule (Eskalith) TAKE [...] as of this encounter (statuses as of 12/15/2023) Active Problems Problem Noted Date Diagnosed Date Hiatal hernia 05/29/2023 Prediabetes 08/19/2022 Overview: Per Prediabetes protocol Chronic kidney disease, stage 3a 12/17/2021 Overview: Per CKD protocol Other specified hypothyroidism 02/04/2008 Major depressive disorder, recurrent episode, mo derate 01/29/2008 Obsessive-compulsive disorder 08/14/2007 Raynaud's syndrome 07/10/2007 ADVANCE DIRECTIVE INFORMATION 09/25/2006 Overview: Information offered-patient declined Laxative abuse Eating disorder Overview: hospitalized, [place], left AMA, mixed type documented as of this encounter (statuses as of 12/15/2023) Resolved Problems Problem Noted Date Diagnosed Date [...] as of this encounter (statuses as of 12/15/2023) Immunizations Name Administration Dates Next Due TDAP [...] encounter Miscellaneous Notes * Telephone Encounter - Yoli Calle OSA - 12/15/2023 1:23 PM EDT Scheduled. 12/15/2023 * Telephone Encounter - Lane Kumari MD - 12/15/2023 1:08 PM EDT Signed - please assist * Telephone Encounter - Brittany Paniagua LPN - 12/11/2023 3:04 PM EST Can a referral be placed? Thank you! * Telephone Encounter - Bethanie Wick OSA - 12/11/2023 2:34 PM EST Has the patient been seen for this problem? (Y/N)?: yes If No, an appt needs to be scheduled before a referral will be placed (exception: proceed with referral request if referral request is for a yearly routine appointment with speciality) Patient Name: Silvia Chambers Patient Primary care provider: Lane Kumari MD Does this need to be an insurance referral (Y/N)?: yes If Yes, does the insurance referral need to be placed into the My Pick Box system? Name of preferred specialist: n/a Type of specialist: Gastroenterology Location of specialist: [place] Specialist's Phone #: n/a Specialist's Fax #: n/a Reason for visit: Reccommended by dr kumari Date of visit: N/a documented in this encounter Plan of Treatment Upcoming Encounters Date Type Department Care Team (Late st Contact Info) Description 01/05/2024 2:00 PM EDT Telemedicine Psychiatry, [address] [place] [address] Jeremy Lezama MD [address] [place] [facility] [place] [address] 03/19/2024 9:00 AM EDT Office Visit Gastroenterology, [facility] [address] [place] [address] Vale Engel CRNP [address] [place] [address] 06/10/2024 9:40 AM EDT Office Visit [place] [address] [place] [address] Lane Kumari MD [address] [place] [address] 10/13/2024 10:40 AM EST Office Visit [facility] [place] [address] Cleve Gardner [facility]-C [facility] [place] [address] Scheduled Procedures Name Priority Associated Diagnoses Date/Ti me ESOPHAGOGASTRODUODENOSCOPY ( EGD), FLEXIBLE, TRANSORAL, DIAGNOSTIC Recall Reflux esophagitis Scheduled Referrals Name Type Priority Associated Diagnoses Order Schedule ADULT GASTROENTEROLOGY REFERRAL OP Referral Within 30 days (routine) Gastroesophageal reflux disease with esophagitis without hemorrhage Ordered: 12/15/2023 Health Maintenance Due Date Last Done Comments [...] Additional history exists CKD PHOS USE SMARTSET 71949 05/26/2024 05/26/2023 CKD HGB USE SMARTSET 29311 11/28/202411/28, 11/29/2022, 11/28/2021, Additional history exists HbA1c [...] this encounter Medical Devices Implanted Type Area Steam Blocker Device Identifier Shelf Expiration Date Model / Serial / Lot Lens 16.5 Mx60 - [id number] - [id number] Implanted:Qty: 1 on 08/05/2017 by Navin Benjamin MD at OR [facility] Left: Eye [employer]OM[employer] : SURGICAL 03/05/2020 MX60-16.5 / [id number] / Lens 14.0 Mx60 - [id number] - [id number] Implanted:Qty: 1 on 08/21/2017 by Navin Benjamin MD at OR [facility] Right: Eye [employer]OM[employer] : SURGICAL 06/05/2018 MX60-14.0 / [id number] / documented as of this encounter Visit Diagnoses Diagnosis Gastroesophageal reflux disease with esophagitis without hemorrhage- Primary documented in this encounter Advance Directives Latest [...] 12:00 PM 02/01/2008 8:00 PM Care Teams Plastic Eye Technician Relationship Specialty Start Date End Date Lane Kumari MD [address] [place] [address] PCP - General Family Medicine 01/01/22 documented as of this encounter
--- OUTSIDE RECORDS SUMMARY | 2024-02-22 12:50 | External Medical Summary ---
Author Name Unknown Address Unknown Organization [id number]:LABORATORY [facility] - [address] [facility] [place] [address] Laboratory Report Ordering Provider Test Date Status CRISTY CUNHA 11/28/2023 08:40:04 Final Observation Date Value Abnormality Reference (Units ) Status HbA1C 11/28/2023 08:40:04 6.0 Above high normal 4. 0-5.6 (%) Final The use of HbA1c to monitor glycemic status is based on normal hemoglobin and HbA composition. This test should not be used in patients with abnormal hemoglobin that affects the half life of the red blood cell or the in vivo glycation rates. Glucose, estimated average 11/28/2023 08:40:04 126 Above high normal <126 (mg/dL) Jonel carranza Performing Location LAB[facility]ATORY [facility] - [address] [facility] [place] [address]
--- OUTSIDE RECORDS SUMMARY | 2024-02-22 12:50 | External Medical Summary ---
Author Name Unknown Address Unknown Organization K01:LAB[facility]ATORY [facility] - [address] [place] [address] Laboratory Report Ordering Provider Test Date Status SASCHA DE ANDA 12/02/2023 09:45:11 Final Observation Date Value Abnormality Reference (Units ) Status MYCODE SPECIMEN-SST 12/02/2023 09:45:11 Freezing of extracted DNA, whole blood and/or serum. Final Performing Location LABORATORY C - [address] [place] [address]
--- OUTSIDE RECORDS SUMMARY | 2024-02-22 12:50 | External Medical Summary | Summary of Care ---
Author Name Unknown Organization [facility] Address [address] [place] [address] Phone [phone] Care Team Providers Care Machine Shop Instructor Name Role Phone Lane Malone MD Primary Care Provider +1- [phone] Reason for Visit * Reason Comments NEW PATIENT Impacted cerumen in left ear * Evaluate & Treat - Unlimited Visits (Within 30 days (routine)) - Pending Review Specialty Diagnoses / Procedures Referred By Anjel contreras Referred To Contact Otolaryngology Diagnoses Impacted cerumen of left ear Lane Malone MD [address] [place] [address] Referral ID Status Reason Start Date Expiration Date Visits Requested Visits Authorized [id number] Pending Review Specialty Services Required 05/29/[phone] Encounter Details Date Type Department Care Team (Late st Contact Info) Description 10/10/2023 9:30 AM EST Office Visit Otolaryngology [facility] [address] [facility] [place] [address] Corinna Toro MD [address] [place] [address] Bilateral impacted cerumen* Allergies No known active allergiesdocumented as of this encounter (statuses as of 10/10/2023) Medications Medication Sig Dispensed Refills Start Date End Date Status Ondansetron 4 MG Oral Tablet Disintegrating (Zofran)Indications:N ausea Place 1 Tab on tongue every 8 hours as needed for Nausea. dissolve on tongue. 12 Tab 1 01/10/2021 Active Levothyroxine Sodium 88 MCG Oral Tablet (Levoxyl)Indications: Acquired hypothyroidism TAKE 1 TABLET DAILY 90 Tablet 3 12/07/2022 Active ALPRAZolam 0.5 MG Oral Tablet (xaNAX) Take 1 Tablet by mouth as needed for Anxiety. 15 Tablet 0 02/04/2023 Active [place] Carbonate 300 MG Oral Capsule (Eskalith) TAKE 3 CAPSULES BY MOUTH NIGHTLY 270 Capsule 1 04/21/2023 Active Pantoprazole Sodium 40 MG Oral Tablet Delayed Release (Protonix) Take 1 tab by mouth twice per day 180 Tablet 1 05/29/2023 Active clomiPRAMINE HCl 75 MG Oral Capsule (Anafranil) Take 2 Capsules by mouth every night at bedtime. 180 Capsule 1 06/17/2023 Active buPROPion HCl ER (XL) 300 MG Oral Tablet Extended Release 24 Hour (Wellbutrin XL) Take 1 Tablet by mouth in the morning. 90 Tablet 1 06/24/2023 Active Lurasidone HCl 120 MG Oral Tablet (Latuda) Take 1 Tablet by mouth in the morning. 90 Tablet 1 07/30/2023 Active Topiramate 50 MG Oral Tablet (Topamax) Take 1 Tablet by mouth in the morning and 1 Tablet before bedtime. 180 Tablet 1 07/30/2023 Active Lisdexamfetamine Dimesylate 70 MG Oral Capsule (Vyvanse) Take 1 Capsule by mouth in the morning. 90 Capsule 0 09/22/2023 Active documented as of this encounter (statuses as of 10/10/2023) Active Problems Problem Noted Date Diagnosed Date [...] as of this encounter (statuses as of 10/10/2023) Resolved Problems Problem Noted Date Diagnosed Date [...] as of this encounter (statuses as of 10/10/2023) Immunizations Name Administration Dates Next Due TDAP (age 11 and older)(Adacel) 07/17/2009 documented as of this encounter Social History Tobacco Use Types Packs/Day Years Used Date Smoking Tobacco: Never Smokeless Tobacco: Never Tobacco Cessation:Counseling Given: Not Answered Alcohol Use Standard Drinks/Week Comments No 0 [...] on file documented as of this encounter Last Filed Vital Signs Vital Sign Reading Time Taken Comments Blood Pressure - - Pulse - - Temperature 36.9 C (98.5 F) 10/10/2023 9:33 AM ES T Respiratory Rate - - Oxygen Saturation - - Inhaled Oxygen Concentration - - Weight 88.5 kg (195 lb 1.6 oz) 10/10/2023 9:33 A M EST Height 165.1 cm (5' 5") 10/10/2023 9:33 AM EST Body Mass Index 32.47 10/10/2023 9:33 AM EST documented in this encounter Progress Notes * Corinna Toro MD - 10/10/2023 10:01 AM EST 10/10/2023 HISTORY OF PRESENT ILLNESS This 53 year old year old female is seen today for the initial complaint of cerumen. The provider requesting consultation is Lane Malone MD. Nursing Notes: Good Cotto, [facility] 10/10/23 0933 Signed Chief Complaint Patient presents with NEW PATIENT Impacted cerumen in left ear Silvia Chambers is a 53 year old female who presents today with impacted cerumen in her left ear. She states that her PCP flushed both of her ears and were able to remove wax from her right ear but not her left. She states that she uses cotton swabs to clean her ears. She states that she has tinnitus in her left ear that she states sounds like music. She denies hearing loss or ear pain. Patient has no history of ear surgery. Denies any vertigo. Symptoms from going on for sometime. Problem List Patient Active Problem List Diagnosis Code ADVANCE DIRECTIVE INFORMATION Raynaud's syndrome I73.00 Obsessive-compulsive disorder F42.9 Major depressive disorder, recurrent episode, moderate (HCC) F33.1 Other specified hypothyroidism E03.8 Laxative abuse F55.2 Eating disorder F50.9 Chronic kidney disease, stage 3a (HCC) N18.31 Prediabetes R73.03 Hiatal hernia K44.9 Past Medical History: Diagnosis Date Eating disorder 2010 hospitalized, [place], left AMA, mixed type, anorexia Hypothyroidism Laxative abuse Pre-eclampsia, mild, antepartum Prediabetes 2016 on metformin Shock therapy as the cause of abnormal reaction of patient, or of later complication 2008 memory deficit, she had ECT in [place] --completed for Depression Past Surgical History: Procedure Laterality Date AMPUTATION OF FINGER/THUMB Right 12/11/2020 AMPUTATION FINGER OR THUMB performed by Peyman Cuello DO at OR [facility] DRAIN SKIN ABSCESS, SIMPLE/SINGLE Right 12/11/2020 INCISION AND DRAINAGE SKIN ABSCESS SIMPLE OR SINGLE performed by Peyman Cuello DO at OR [facility] EGD, FLEXIBLE, DIAGNOSTIC 03/26/2019 acid reflux, hiatal hernia/ESOPHAGOGASTRODUODENOSCOPY (EGD), FLEXIBLE, TRANSORAL, DIAGNOSTIC performed by Shahram Corrales MD at ENDOSCOPY [facility] EGD, FLEXIBLE, DIAGNOSTIC 12/03/2022 LA grade C reflux esophagitis/medium sized hiatal hernia/repeat 2 months/ESOPHAGOGASTRODUODENOSCOPY(EGD), FLEXIBLE, TRANSORAL, DIAGNOSTIC performed by Stephan Carrillo MD at ENDOSCOPY [facility] ELECTROCONVUL THERAPY ECT-SNGL 02/01/2008 ELECTROCONVULSIVE THERAPY performed by CLARENCE UP at OR [facility] ELECTROCONVUL THERAPY ECT-SNGL 02/03/2008 ELECTROCONVULSIVE THERAPY performed by CLARENCE UP at OR [facility] ELECTROCONVUL THERAPY ECT-SNGL 02/05/2008 ELECTROCONVULSIVE THERAPY performed by CLARENCE UP at OR [facility] ELECTROCONVUL THERAPY ECT-SNGL 02/12/2008 ELECTROCONVULSIVE THERAPY performed by JAMES GALVEZ at OR [facility] ELECTROCONVUL THERAPY ECT-SNGL 02/15/2008 ELECTROCONVULSIVE THERAPY performed by CLARENCE UP at OR [facility] ELECTROCONVUL THERAPY ECT-SNGL 02/17/2008 ELECTROCONVULSIVE THERAPY performed by CLARENCE UP at OR [facility] ELECTROCONVUL THERAPY ECT-SNGL 02/19/2008 ELECTROCONVULSIVE THERAPY performed by CLARENCE UP at OR [facility] ELECTROCONVUL THERAPY ECT-SNGL 02/22/2008 ELECTROCONVULSIVE THERAPY performed by JAMES GALVEZ at OR [facility] ELECTROCONVUL THERAPY ECT-SNGL 02/24/2008 ELECTROCONVULSIVE THERAPY performed by CLARENCE UP at OR [facility] ELECTROCONVUL THERAPY ECT-SNGL 02/26/2008 ELECTROCONVULSIVE THERAPY performed by CLARENCE UP at OR [facility] ELECTROCONVUL THERAPY ECT-SNGL 03/02/2008 ELECTROCONVULSIVE THERAPY performed by CLARENCE UP at OR [facility] ELECTROCONVUL THERAPY ECT-SNGL 03/04/2008 ELECTROCONVULSIVE THERAPY performed by JAMES GALVEZ at OR [facility] IMPACT TOOTH REMOV PART BONY age 16 PHALANX OR PHALANGES FX W/FIXATION LEFT 3RD -5TH TOES REMOVE CATARACT, INSERT LENS PROSTH Left 08/05/2017 left EXTRACAPSULAR CATARACT REMOVAL WITH INTRAOCULAR LENS performed by Navin Benjamin MD at OR [facility] REMOVE CATARACT, INSERT LENS PROSTH Right 08/21/2017 right EXTRACAPSULAR CATARACT REMOVAL WITH INTRAOCULAR LENS performed by Navin Benjamin MD at OR [facility] US ABDOMEN LIMITED 01/2002 Negative liver, GB, pancreas Medications Current Outpatient Medications Medication Sig Dispense Refill Ondansetron 4 MG Oral Tablet Disintegrating (Zofran) Place 1 Tab on tongue every 8 hours as needed for Nausea. dissolve on tongue. 12 Tab 1 Levothyroxine Sodium 88 MCG Oral Tablet (Levoxyl) TAKE 1 TABLET DAILY 90 Tablet 3 ALPRAZolam 0.5 MG Oral Tablet (xaNAX) Take 1 Tablet by mouth as needed for Anxiety. 15 Tablet 0 [place] Carbonate 300 MG Oral Capsule (Eskalith) TAKE 3 CAPSULES BY MOUTH NIGHTLY 270 Capsule 1 Pantoprazole Sodium 40 MG Oral Tablet Delayed Release (Protonix) Take 1 tab by mouth twice per day 180 Tablet 1 clomiPRAMINE HCl 75 MG Oral Capsule (Anafranil) Take 2 Capsules by mouth every night at bedtime. 180 Capsule 1 buPROPion HCl ER (XL) 300 MG Oral Tablet Extended Release 24 Hour (Wellbutrin XL) Take 1 Tablet by mouth in the morning. 90 Tablet 1 Lurasidone HCl 120 MG Oral Tablet (Latuda) Take 1 Tablet by mouth in the morning. 90 Tablet 1 Topiramate 50 MG Oral Tablet (Topamax) Take 1 Tablet by mouth in the morning and 1 Tablet before bedtime. 180 Tablet 1 Lisdexamfetamine Dimesylate 70 MG Oral Capsule (Vyvanse) Take 1 Capsule by mouth in the morning. 90Capsule 0 No current facility-administered medications for this visit. Allergies Review of patient's allergies indicates: No Known Allergies Family History Family History Problem Relation Age of Onset Hypertension Mother age 58 No Past Hx Father age 63 Social History Social History Tobacco Use Smoking status: Never Smokeless tobacco: Never Substance Use Topics Alcohol use: No Vaping/E-Cigarette Use Vaping/E-Cigarette Use Never User Vaping/E-Cigarette Substances Vaping/E-Cigarette Devices Occupational History Work: Review of Systems Negative for constitutional, eyes, cardiac, pulmonary, hepatic, renal, digestive, hematologic, epileptic, syncopal, musculo-skeletal, mental health, integumentary, hypertensive, lipid, arthritic, diabetic, thyroid or neurologic disorders (except as listed in the PMH and Problem List). Physical Examination: Temp 36.9 C (98.5 F) (Tympanic) | Ht 1.651 m (5' 5") | Wt 88.5 kg (195 lb 1.6 oz) | BMI 32.47 kg/m | BSA 2.01 m General: This is a healthy appearing female who appears her stated age. The patient is alert and appropriately verbally conversant without hoarseness. Face: The face was inspected and no cutaneous masses or lesions were visualized. There was no erythema or edema noted. Facial movement was symmetric without weakness. Eyes: Extra-ocular muscle function was intact. No nystagmus was observed. Pupils were equal. Cranial Nerves: Cranial nerves grossly intact Nose: Examination of the nose prior to decongestion revealed no masses, polyps, mucopus, or other lesion. The nasal septum was non-obstructing. The turbinates were without abnormality. No septal perforation. Ears: Examination of the ears revealed that the auricles were normally formed with no lesions. The external auditory canals were cleaned of any obstructing cerumen. The tympanic membranes were intact. There are no significant retraction pockets. There is no inflammation visualized. No effusions areseen. Neck: Visualization and palpation of the neck revealed no mass lesions, no thyromegaly or thyroid masses. No skin lesions or inflammatory processes were detected. The cervical musculature was normal to palpation. Lymphatics (cervical): There were no palpable lymph nodes in the posterior triangle, submandibular triangle, jugulodigastric region, or central neck. Procedure: Cerumen removal Attention directed to the right ear. Under alex-microscopic guidance the impacted cerumen was removed with a curette atraumatically. The tympanic membrane was intact and the middle ear was healthy appearing. The same procedure was performed on the other side. Patient tolerated the procedure well. Plan: Bilateral impacted cerumen (Primary) Mineral oil 1-2x per week. Return with Cleve in 1 year. Extensive time was spent discussing the above diagnosis, management and treatment. I reviewed all outside documentation, labs, and imaging. Corinna Toro MD [facility] Otolaryngology - Head and Neck Surgery [place], [place] 10/10/2023 10:01 AM documented in this encounter Nursing Notes * Good Cotto CMA - 10/10/2023 9:30 AM EST Chief Complaint Patient presents with NEW PATIENT Impacted cerumen in left ear Silvia Chambers is a 53 year old female who presents today with impacted cerumen in her left ear. She states that her PCP flushed both of her ears and were able to remove wax from her right ear but not her left. She states that she uses cotton swabs to clean her ears. She states that she has tinnitus in her left ear that she states sounds like music. She denies hearing loss or ear pain. documented in this encounter Plan of Treatment Upcoming Encounters Date Type Department Care Team (Late st Contact Info) Description 10/15/2023 8:30 AM EST Telemedicine Psychiatry, [address] [address] Jeremy Lezama MD [address] [place] [address] 12/02/2023 9:00 AM EST Office Visit [facility] [address] [place] [id number] Lane Malone MD [address] [place], [place] [id number] 10/13/2024 10:40 AM EST Office Visit Otolaryngology [facility] [address] [facility] [place] [address] Cleve Gardner PA-C [address] [place] [address] Scheduled Procedures Name Priority Associated Diagnoses Date/Ti me ESOPHAGOGASTRODUODENOSCOPY ( EGD), FLEXIBLE, TRANSORAL, DIAGNOSTIC Recall Reflux esophagitis Scheduled Referrals Name Type Priority Associated Diagnoses Order Schedule OTOLARYNGOLOGY REFERRAL OP Referral Within 30 days (routine) Impacted cerumen of left ear Ordered: 05/29/2023 Health Maintenance Due Date Last Done Comments Hepatitis B (1 of 3 - 3-dose series) 1970 COVID-19 Vaccine (#1) 1970 HIV Screening 1985 Albumin/Creatinine Ratio 01/08/1988 Mammogram 2010 Cologuard 2015 Colonoscopy 2015 Colorectal Cancer Screening 2015 Fecal Occult Blood Test 2015 Sigmoidoscopy 2015 Depression Screening 07/31/2018 07/31/2017 DTaP,Tdap,and Td Vaccines (2 - Td or Tdap) 07/17/2019 07/17/2009 Zoster Vaccines (1 of 2) 01/08/2020 PAP SMEAR-EVERY 5 YRS,AGES 21-100 10/23/2020 10/23/2015, 07/18/2011 Influenza Vaccine (FLU shot) (#1) 2023 GFR 11/26/2023 05/26/2023, 11/07, 11/25/2022, Additional history exists CKD HGB USE SMARTSET 90550 11/29/202311/29, 11/28/2021, 11/28/2021, Additional history exists HbA1c 11/29/2023 11/29/2022, 11/07, 08/05/2022, Additional history exists CKD PHOS USE SMARTSET 66265 05/26/2024 05/26/2023 TSH 05/26/2024 05/26/2023, 11/07, 11/25/2022, Additional history exists Lipid Panel 11/29/2027 11/29/2022, [...] this encounter Medical Devices Implanted Type Area Lab Asst Device Identifier Shelf Expiration Date Model / Serial / Lot Lens 16.5 Mx60 - [id number] - [id number] Implanted:Qty: 1 on 08/05/2017 by Navin Benjamin MD at OR [facility] Left: Eye [employer] : SURGICAL 03/05/2020 MX60-16.5 / [id number] / Lens 14.0 Mx60 - [id number] - [id number] Implanted:Qty: 1 on 08/21/2017 by Navin Benjamin MD at OR [facility] Right: Eye [employer]OM[employer] : SURGICAL 06/05/2018 MX60-14.0 / [id number] / documented as of this encounter Visit Diagnoses Diagnosis Bilateral impacted cerumen- Primary Impacted cerumen documented in this encounter Advance Directives Latest [...] 12:00 PM 02/01/2008 8:00 PM Care Teams Machine Shop Instructor Relationship Specialty Start Date End Date Lane Malone MD [address] [place] [facility] [place] [address] PCP - General Family Medicine 01/01/22 documented as of this encounter
--- OUTSIDE RECORDS SUMMARY | 2024-02-22 12:50 | External Medical Summary ---
Author Name Unknown Address Unknown Organization K01:LABORATORY [facility] - [address] [place] [address] Laboratory Report Ordering Provider Test Date Status CRISTY CUNHA 12/02/2023 09:45:11 Final Observation Date Value Abnormality Reference (Units ) Status Vitamin B12 12/02/2023 09:45:11 [id number] (pg/mL) Final Performing Location LABORATORY [facility] - [address] [place] [address]
--- OUTSIDE RECORDS SUMMARY | 2024-02-22 12:50 | External Medical Summary | Summary of Care ---
Author Name Unknown Organization [facility] Address [address] [place] [address] Phone [phone] Care Team Providers Care Track Helper Name Role Phone Lane Malone MD Primary Care Provider +1- [phone] Encounter Details Date Type Department Care Team (Late st Contact Info) Description 10/15/2023 8:30 AM EST Telemedicine Psychiatry, [address] [address] Jeremy Lezama MD [address] [place] [address] Borderline personality disorder (HCC)* Allergies No known active allergiesdocumented as of this encounter (statuses as of 10/15/2023) Medications Medication Sig Dispensed Refills Start Date End Date Status Ondansetron 4 MG Oral Tablet Disintegrating (Zofran)Indications :Nausea Place 1 Tab on tongue every 8 hours as needed for Nausea. dissolve on tongue. 12 Tab 1 1 Active Levothyroxine Sodium 88 MCG Oral Tablet (Levoxyl)Indication s:Acquired hypothyroidism TAKE 1 TABLET DAILY 90 Tablet 3 3 Active ALPRAZolam 0.5 MG Oral Tablet (xaNAX) Take 1 Tablet by mouth as needed for Anxiety. 15 Tablet 0 3 Active Pantoprazole Sodium 40 MG Oral Tablet Delayed Release (Protonix) Take 1 tab by mouth twice per day 180 Tablet 1 3 Active Topiramate 50 MG Oral Tablet (Topamax) Take 1 Tablet by mouth in the morning and 1 Tablet before bedtime. 180 Tablet 1 3 Active Lisdexamfetamine Dimesylate 70 MG Oral Capsule (Vyvanse) Take 1 Capsule by mouth in the morning. 90 Capsule 0 3 Active Lurasidone HCl 20 MG Oral Tablet (Latuda) Take 1 Tablet by mouth in the morning. Total of 140mg daily. 30 Tablet 1 4 Active buPROPion HCl ER (XL) 300 MG Oral Tablet Extended Release 24 Hour (Wellbutrin XL) Take 1 Tablet by mouth in the morning. 90 Tablet 1 4 Active clomiPRAMINE HCl 75 MG Oral Capsule (Anafranil) Take 2 Capsules by mouth every night at bedtime. 180 Capsule 1 4 Active [place]ner Carbonate 300 MG Oral Capsule (Eskalith) TAKE 3 CAPSULES BY MOUTH NIGHTLY 270 Capsule 1 4 Active [place] Carbonate 300 MG Oral Capsule (Eskalith) TAKE 3 CAPSULES BY MOUTH NIGHTLY 270 Capsule 1 3 10/15/19 24 Discontinued(Ref ill) clomiPRAMINE HCl 75 MG Oral Capsule (Anafranil) Take 2 Capsules by mouth every night at bedtime. 180 Capsule 1 3 10/15/19 24 Discontinued(Ref ill) buPROPion HCl ER (XL) 300 MG Oral Tablet Extended Release 24 Hour (Wellbutrin XL) Take 1 Tablet by mouth in the morning. 90 Tablet 1 3 10/15/19 24 Discontinued(Ref ill) Lurasidone HCl 120 MG Oral Tablet (Latuda) Take 1 Tablet by mouth in the morning. 90 Tablet 1 3 10/15/19 24 Discontinued documented as of this encounter (statuses as of 10/15/2023) Active Problems Problem Noted Date Diagnosed Date [...] as of this encounter (statuses as of 10/15/2023) Resolved Problems Problem Noted Date Diagnosed Date [...] as of this encounter (statuses as of 10/15/2023) Immunizations Name Administration Dates Next Due TDAP [...] Progress Notes * Jeremy Lezama MD - 10/15/2023 8:30 AM EST Patient location: HOME. I was not in a hospital or clinic location. After connecting through [facility], patient was verified with two unique identifiers. Patient (or authorized legal telephone service representative) was then informed that this was a Telemedicine visit and being conducted confidentially over secure lines. Methods to assure confidentiality were taken. Patient acknowledged consent and understanding of privacy and security of the Telemedicine visit. The patient agreed to participate. PSYCHOTHERAPY & MEDICATION MANAGEMENT RETURN VISIT NOTE CHIEF COMPLAINT: "med management" INTERVAL HISTORY: She states she is doing ok. She notes being concerned because her is getting a new membership secretary. She is concerned about this-- concerns he will cheat on her. She is feeling jealous. Discuss where this comes from-- distorted self views (feeling "fat, ugly, I'm a bad person"). She is still experiencing AH of music (even after ENT and ears cleaned out). This is very bothersome and distracting to her. Frequency is intermittent. Has not noticed an association with stress/mood. OBJECTIVE DATA: ROS EXAM: denies SUBSTANCE ABUSE:Unremarkable [...] as needed for Anxiety. 15 Tablet 0 G[place] Carbonate 300 MG Oral Capsule (Eskalith) TAKE [...] ongoing psychotherapy as well as with a homogenizer operator (one who specifiesin eating disorders). Has chronic thoughts of suicide due to not feeling good enough-- including wanting to eventually by suicide. 2 inpatient hospitalizations, 1 for an eating disorder. 1 SA at age 19 by OD. 2 children. . Worked for 23 years at [employer] now on disability. Previously in therapy with Ladonna Delgadillo. Struggles with personal hygiene. DIAGNOSIS: Generalized Anxiety Disorder Unspecified Depressive Disorder Borderline Personality Disorder Hx of anorexia Hx of OCD Hx of ECT treatments R/O PTSD PLAN: - Silvia is currently on Giltner 900 mg daily, Vyvanse 70 mg, Levoxyl 88 mcg, Clomipramine 75 mg BID, Topamax 50 mg BID, Buproprion XL 300 mg daily, Xanax 0.5 mg as needed (takes very seldomly); AIMS: 0 updated 01/01/23 - titrate Latuda to target AH: 140mg qDay - strongly recommend restarting therapy - Goals: making small, sustainable changes - I have reviewed the patients controlled substance dispensing history in the Prescription Drug Monitoring Program in compliance with the [facility] regulations before prescribing a controlled substance. Return 6 weeks Risk/Benefits of Medication Discussed/Verbalized Understanding yes Time Spent on Visit: 30 minutes - including preparing to see the patient, reviewing history, performing evaluation, counseling/educating patient, ordering medications/tests, documenting clinical information. Psychotherapy Attestation: I attest I have spent 17 minutes providing psychotherapy during this visit. The following issues were discussed: explored pros and cons of change. Patient was responsive to treatment and accepting of perspectives offered.. I plan to provide supportive and behavioral based psychotherapy, as needed, in the context of psychopharm management sessions. Jeremy Lezama MD Psychiatry Attending documented in this encounter Plan of Treatment Upcoming Encounters Date Type Department Care Team (Late st Contact Info) Description 11/26/2023 8:30 AM EST Telemedicine Psychiatry, [address] [address] Jeremy Lezama MD [address] [place] [address] 12/02/2023 9:00 AM EST Office Visit [facility] [address] [place] [address] [phone] Malone MD [address] [place] [address] 10/13/2024 10:40 AM EST Office Visit Otolaryngology [facility] [address] [place] [address] [address] Cleve Gardner PA-C [address] [place] [address] Scheduled Procedures Name Priority Associated Diagnoses Date/Ti [...] Additional history exists CKD HGB USE SMARTSET 69095 11/29/202311/29, 11/28/2021, 11/28/2021, Additional history exists HbA1c 11/29/2023 11/29/2022, 11/07, 08/05/2022, Additional history exists CKD PHOS USE SMARTSET 09429 05/26/2024 05/26/2023 TSH 05/26/2024 05/26/2023, 11/07, 11/25/2022, [...] this encounter Medical Devices Implanted Type Area Venue Coordinator Device Identifier Shelf Expiration Date Model / Serial / Lot Lens 16.5 Mx60 - [id number] - [id number] Implanted:Qty: 1 on 08/05/2017 by Navin Benjamin MD at OR [facility] Left: Eye BAUSCH & LOMB : SURGICAL 03/05/2020 MX60-16.5 / [id number] / Lens 14.0 Mx60 - [id number] - [id number] Implanted:Qty: 1 on 08/21/2017 by Navin Benjamin MD at OR [facility] Right: Eye BAUSCH & LOMB : SURGICAL 06/05/2018 MX60-14.0 / [id number] / documented as of this encounter Visit [...] 12:00 PM 02/01/2008 8:00 PM Care Teams Track Helper Relationship Specialty Start Date End Date Lane Malone MD [address] [place] [address] PCP - General Family Medicine 01/01/22 documented as of this encounter
--- OUTSIDE RECORDS SUMMARY | 2024-02-22 12:50 | External Medical Summary | Summary of Care ---
Author Name Unknown Organization [facility] Address [address] [facility] [address] Phone [phone] Care Team Providers Care Television Journalist Name Role Phone Lane Malone MD Primary Care Provider +1- [phone] Reason for Visit * Reason Onset Date Comments FYI 12/04/2023 LGI Encounter Details Date Type Department Care Team (Late st Contact Info) Description 12/04/2023 Telephone [facility] [address] [facility] [place] [address] [address] Malone MD [address] [place] [address] FYI (LGI) Allergies No known active allergiesdocumented as of this encounter (statuses as of 12/04/2023) Medications Medication Sig Dispensed Refills Start Date [...] per day 180 Tablet 1 05/29/2023 Active Lisdexamfetamine Dimesylate 70 MG Oral Capsule (Vyvanse) Take 1 Capsule by mouth in the morning. 90 Capsule 0 09/22/2023 Active Lurasidone HCl 20 MG Oral Tablet (Latuda) Take 1 Tablet by mouth in the morning. Total of 140mg daily. 30 Tablet 1 10/15/2023 Active buPROPion HCl ER (XL) 300 MG Oral Tablet Extended Release 24 Hour (Wellbutrin XL) Take 1 Tablet by mouth in the morning. 90 Tablet 1 10/15/2023 Active clomiPRAMINE HCl 75 MG Oral Capsule (Anafranil) Take 2 Capsules by mouth every night at bedtime. 180 Capsule 1 10/15/2023 Active [place] Carbonate 300 MG Oral Capsule (Eskalith) TAKE [...] a week. 2 mL 5 12/02/2023 Active documented as of this encounter (statuses as of 12/04/2023) Active Problems Problem Noted Date Diagnosed Date [...] as of this encounter (statuses as of 12/04/2023) Resolved Problems Problem Noted Date Diagnosed Date [...] as of this encounter (statuses as of 12/04/2023) Immunizations Name Administration Dates Next Due TDAP [...] encounter Miscellaneous Notes * Telephone Encounter - Alon Hernandez LPN - 12/04/2023 11:10 AM EST Through advanced analysis/trending of this patients Complete Blood Counts (CBC), they have been identified to have a positive LGI flag and at a higher risk for hidden bleeding in the intestine dueto several conditions such as ulcers, colon polyps, harmless conditions, or even colon cancer. This advanced analysis estimates the patient's risk of these kinds of conditions. It only indicatesthat the patient's chances to have one of these conditions are higher compared to most people. It does not indicate that the patient has any of these conditions but is highly recommended the patient have a colonoscopy for further evaluation. Patients with a positive LGI flag have a 40% chance (six times more likely) of having a serious GI pathology finding versus unflagged patients. I have contacted the patient regarding scheduling a colonoscopy. Colonoscopy outreach: Patient declined, sent to PCP for review Thank you. Alon Hernandez LPN documented in this encounter Plan of Treatment Upcoming Encounters Date Type Department Care Team (Late st Contact Info) Description 01/05/2024 2:00 PM EDT Telemedicine Psychiatry, [address] [address] Jeremy Lezama MD [address] [place] [address] 06/10/2024 9:40 AM EDT Office Visit [facility] [address] [place] [address] Lane Malone MD [address] [place] [address] 10/13/2024 10:40 AM EST Office Visit Otolaryngology [facility] [address] [facility] [place] [id number] Cleve Gardner PA-C [address] [place] [address] Scheduled Procedures Name Priority Associated Diagnoses Date/Ti [...] Additional history exists CKD PHOS USE SMARTSET 83103 05/26/2024 05/26/2023 CKD HGB USE SMARTSET 96509 11/28/202411/28, 11/29/2022, 11/28/2021, Additional history exists HbA1c [...] this encounter Medical Devices Implanted Type Area Port Steward Device Identifier Shelf Expiration Date Model / Serial / Lot Lens 16.5 Mx60 - [id number] - [id number] Implanted:Qty: 1 on 08/05/2017 by Navin Benjamin MD at OR [facility] Left: Eye BAUSCH & LOMB : SURGICAL 03/05/2020 MX60-16.5 / [id number] / Lens 14.0 Mx60 - [id number] - [id number] Implanted:Qty: 1 on 08/21/2017 by Navin Benjamin MD at OR [facility] Right: Eye BAUSCH & LOMB : SURGICAL 06/05/2018 MX60-14.0 / [id number] / documented as of this encounter Advance [...] 12:00 PM 02/01/2008 8:00 PM Care Teams Television Journalist Relationship Specialty Start Date End Date Lane Malone MD [address] [place] [address] PCP - General Family Medicine 01/01/22 documented as of this encounter
--- OUTSIDE RECORDS SUMMARY | 2024-02-22 12:50 | External Medical Summary ---
Author Name Unknown Address Unknown Organization [id number]:[facility] [place] - [facility] [address] [facility] [place]. [facility] [address] Laboratory Report Ordering Provider Test Date Status CRISTY CUNHA 12/02/2023 09:45:11 Final Observation Date Value Abnormality Reference (Units ) Status Retic, % (auto) 12/02/2023 09:45:11 1.64 0.80-1.90 (%) Final Reticulocytes, Absolute 12/02/2023 09:45:11 68.4 31.3-100.1 (K/uL) Final Reticulocyte fraction, immature 12/02/2023 09:45:11 36.0 Above high normal 2.5-20.6 (%) Final Reticulocyte HGB 12/02/2023 09:45:11 22.9 Below low normal 29.7-37.4 (pg) Final Performing Location [facility] - [address] [facility] [address]
--- OUTSIDE RECORDS SUMMARY | 2024-02-22 12:50 | External Medical Summary ---
Author Name Unknown Address Unknown Organization [id number]:[facility] [place] [address] [place] [address] Laboratory Report Ordering Provider Test Date Status CRISTY CUNHA 12/02/2023 09:45:11 Final Observation Date Value Abnormality Reference (Units ) Status Iron 12/02/2023 09:45:11 21 Below low normal 33-151 (ug/dL) Final Iron-binding capacity 12/02/2023 09:45:11 534 Above high normal 250-425 (ug/dL) Final Transferrin Sat % 12/02/2023 09:45:11 4 Below low normal 15-55 (%) Final Performing Location [facility] - [address] [place] [address]
--- OUTSIDE RECORDS SUMMARY | 2024-02-22 12:50 | External Medical Summary | Summary of Care ---
Author Name Unknown Organization [facility] Address [address] [place] [address] Phone [phone] Care Team Providers Care Human Resource Professional Name Role Phone Lane Malone MD Primary Care Provider +1- [phone] Reason for Visit * Reason Comments Outpatient Testing Encounter Details Date Type Department Care Team (Late st Contact Info) Description 11/28/2023 8:40 AM EST Laboratory Laboratory, [place] [address] [place] [address] [place] [address] [place] [address] Prediabetes; Anemia, unspecified type Allergies No known active allergiesdocumented as of this encounter (statuses as of 11/28/2023) Medications Medication Sig Dispensed Refills Start Date End Date Status Ondansetron 4 MG Oral Tablet Disintegrating (Zofran)Indications:N ausea Place 1 Tab on tongue every 8 hours as needed for Nausea. dissolve on tongue. 12 Tab 1 01/10/2021 Active ALPRAZolam 0.5 MG Oral Tablet (xaNAX) [...] at bedtime. 180 Capsule 1 10/15/2023 Active [place] Carbonate 300 MG Oral Capsule (Eskalith) TAKE [...] 140mg daily. 90 Tablet 1 11/27/2023 Active documented as of this encounter (statuses as of 11/28/2023) Active Problems Problem Noted Date Diagnosed Date Hiatal hernia 05/29/2023 Prediabetes 08/19/2022 Overview: Per Prediabetes protocol Chronic kidney disease, stage 3a 12/17/2021 Overview: Per CKD protocol Other specified hypothyroidism 02/04/2008 Major depressive disorder, recurrent episode, mo derate 01/29/2008 Obsessive-compulsive disorder 08/14/2007 Raynaud's syndrome 07/10/2007 ADVANCE DIRECTIVE INFORMATION 09/25/2006 Overview: Information offered-patient declined Laxative abuse Eating disorder Overview: hospitalized, [place], left AMA, mixed type documented as of this encounter (statuses as of 11/28/2023) Resolved Problems Problem Noted Date Diagnosed Date [...] as of this encounter (statuses as of 11/28/2023) Immunizations Name Administration Dates Next Due TDAP [...] on file documented as of this encounter Plan of Treatment Upcoming Encounters Date Type Department Care Team (Late st Contact Info) Description 12/02/2023 9:00 AM EST Office Visit [facility] [address] [facility] [place] [phone] Lane Malone MD [address] [facility] [place] [address] 01/05/2024 2:00 PM EDT Telemedicine Psychiatry, [place] [address] [place] [address] Jeremy Lezama MD [address] [facility] [place] [address] 10/13/2024 10:40 AM EST Office Visit Otolaryngology [facility] [address] [place] [address] Cleve Gardner PA-C [address] [place] [address] Pending Results Name Type Priority Associated Diagnoses Date /Time HEMOGLOBIN A1C Lab Routine Prediabetes 11/28/2023 8:40 AM EST CBC Lab Routine Anemia, unspecified type 11/28/2023 8:40 AM EST Scheduled Procedures Name Priority Associated Diagnoses Date/Ti [...] Additional history exists CKD HGB USE SMARTSET 07505 11/29/202311/29, 11/28/2021, 11/28/2021, Additional history exists HbA1c 11/29/2023 11/29/2022, 11/07, 08/05/2022, Additional history exists CKD PHOS USE SMARTSET 30660 05/26/2024 05/26/2023 TSH 05/26/2024 05/26/2023, 11/07, 11/25/2022, [...] this encounter Medical Devices Implanted Type Area Duplicating Machine Servicer Device Identifier Shelf Expiration Date Model / Serial / Lot Lens 16.5 Mx60 - [id number] - [id number] Implanted:Qty: 1 on 08/05/2017 by Navin Benjamin MD at OR [facility] Left: Eye BAUSCH & LOMB : SURGICAL 03/05/2020 MX60-16.5 / [id number] / Lens 14.0 Mx60 - [id number] - [id number] Implanted:Qty: 1 on 08/21/2017 by Navin Benjamin MD at OR [facility] Right: Eye BAUSCH & LOMB : SURGICAL 06/05/2018 MX60-14.0 / [id number] / documented as of this encounter Visit Diagnoses Diagnosis Prediabetes Other abnormal glucose Anemia, unspecified type documented in this encounter Advance Directives Latest [...] 12:00 PM 02/01/2008 8:00 PM Care Teams Human Resource Professional Relationship Specialty Start Date End Date Lane Malone MD [address] [place] [address] PCP - General Family Medicine 01/01/22 documented as of this encounter
--- OUTSIDE RECORDS SUMMARY | 2024-02-22 12:50 | External Medical Summary | Summary of Care ---
Author Name Unknown Organization [facility] Address [address] [place] [address] Phone [phone] Care Team Providers Care Hvac/R Service Technician Name Role Phone Lane Malone MD Primary Care Provider [phone]- [phone] Reason for Visit * Reason Comments Status Check Annual check up Encounter Details Date Type Department Care Team (Latest Contact Info) Description 12/02/2023 9:00 AM EST [facility] Visit [facility] [address] [place] [address] Lane Malone MD [address] [place] [address] Anemia, unspecified type*; Weight gain; Prediabetes; Class 1 obesity with serious comorbidity and body mass index (BMI) of 33.0 to 33.9 in adult, unspecified obesity type; Chronic kidney disease, stage 3a (HCC); Other specified hypothyroidism Allergies No known active allergiesdocumented as of this encounter (statuses as of 12/02/2023) Medications Medication Sig Dispensed Refills Start Date [...] at bedtime. 180 Capsule 1 10/15/2023 Active Trion Carbonate 300 MG Oral Capsule (Eskalith) TAKE [...] once a week. 2 mL 5 12/02/2023 5 Active documented as of this encounter (statuses as of 12/02/2023) Active Problems Problem Noted Date Diagnosed Date Hiatal hernia 05/29/2023 Prediabetes 08/19/2022 Overview: Per Prediabetes protocol Chronic kidney disease, stage 3a 12/17/2021 Overview: Per CKD protocol Other specified hypothyroidism 02/04/2008 Major depressive disorder, recurrent episode, mo derate 01/29/2008 Obsessive-compulsive disorder 08/14/2007 Raynaud's syndrome 07/10/2007 ADVANCE DIRECTIVE INFORMATION 09/25/2006 Overview: Information offered-patient declined Laxative abuse Eating disorder Overview: hospitalized, [place], left AMA, mixed type documented as of this encounter (statuses as of 12/02/2023) Resolved Problems Problem Noted Date Diagnosed Date [...] as of this encounter (statuses as of 12/02/2023) Immunizations Name Administration Dates Next Due TDAP [...] Sign Reading Time Taken Comments Blood Pressure 132/80 12/02/2023 9:01 AM EST Pulse 76 12/02/2023 9:01 AM EST Temperature 36.7 C (98 F) 12/02/2023 9:01 AM EST Respiratory Rate 18 12/02/2023 9:01 AM EST Oxygen Saturation 97% 12/02/2023 9:01 AM EST Inhaled Oxygen Concentration - - Weight 90.3 kg (199 lb) 12/02/2023 9:01 AM EST Height 165.1 cm (5' 5") 12/02/2023 9:01 AM EST Body Mass Index 33.12 12/02/2023 9:01 AM EST documented in this encounter Progress Notes * Lane Malone MD - 12/02/2023 11:36 AM EST Subjective: Silvia Chambers is a 53 year old female here today for Chief Complaint Patient presents with Status Check Annual check up Patient presents for routine recheck. Had a recent hemoglobin A1c which remains in the range of prediabetes at 6.0. CBC showed worsening anemia with hemoglobin of 9.8 and increasing thrombocytosis with platelet count of 638. Patient is on latuda and did have a dose increase since the last visit. The dose increase did seem to help some auditory hallucinations. Patient was hearing music that was not present prior. She is continuing to work with psychiatry. Patient states her gastrointestinal symptoms have improved since last visit. Very rarely has any emesis. Denies any blood in the emesis or in the stools that she has noticed. Patient reports that her biggest concern is her progressive weight gain. She has gained about 50 pounds in the last 2 years. She states because of her weight gain, she does not feel comfortable leaving the house. She also believes that worsening gastroesophageal reflux and energy levels relate to the weight gain. She is interested in taking a medication to try and lose weight. Past Medical History: Diagnosis Date Eating disorder 2011 hospitalized, [place], left AMA, mixed type, anorexia Hypothyroidism Laxative abuse Pre-eclampsia, mild, antepartum Prediabetes 2016 on metformin Shock therapy as the cause of abnormal reaction of patient, or of later complication 2008 memory deficit, she had ECT in [place] --completed for Depression Past Surgical History: Procedure Laterality Date AMPUTATION OF FINGER/THUMB Right 12/11/2020 AMPUTATION FINGER OR THUMB performed by Peyman Cuello DO at OR [facility] DRAIN SKIN ABSCESS, SIMPLE/SINGLE Right 12/11/2020 INCISION AND DRAINAGE SKIN ABSCESS SIMPLE OR SINGLE performed by Peyman Cuello DO at OR [facility] EGD, FLEXIBLE, DIAGNOSTIC 03/26/2019 acid reflux, hiatal hernia/ESOPHAGOGASTRODUODENOSCOPY (EGD), FLEXIBLE, TRANSORAL, DIAGNOSTIC performed by Shahram Corrales MD at ENDOSCOPY [facility] EGD, FLEXIBLE, DIAGNOSTIC 12/03/2022 LA grade C reflux esophagitis/medium sized hiatal hernia/repeat 2 months/ESOPHAGOGASTRODUODENOSCOPY(EGD), FLEXIBLE, TRANSORAL, DIAGNOSTIC performed by Stephan Carrillo MD at ENDOSCOPY [facility] ELECTROCONVUL THERAPY ECT-SNGL 02/01/2008 ELECTROCONVULSIVE THERAPY performed by CLARENCE UP at OR [facility] ELECTROCONVUL THERAPY ECT-SNGL 02/03/2008 ELECTROCONVULSIVE THERAPY performed by CLARENCE UP at OR [facility] ELECTROCONVUL THERAPY ECT-SNGL 02/05/2008 ELECTROCONVULSIVE THERAPY performed by CLARENCE UP at OR [facility] ELECTROCONVUL THERAPY ECT-SNGL 02/12/2008 ELECTROCONVULSIVE THERAPY performed by JAMES GALVEZ at OR [facility] ELECTROCONVUL THERAPY ECT-SNGL 02/15/2008 ELECTROCONVULSIVE THERAPY performed by CLARENCE UP at OR [facility] ELECTROCONVUL THERAPY ECT-SNGL 02/17/2008 ELECTROCONVULSIVE THERAPY performed by CLARENCE UP at OR [facility] ELECTROCONVUL THERAPY ECT-SNGL 02/19/2008 ELECTROCONVULSIVE THERAPY performed by CLARENCE UP at OR [facility] ELECTROCONVUL THERAPY ECT-SNGL 02/22/2008 ELECTROCONVULSIVE THERAPY performed by JAMES GALVEZ at OR [facility] ELECTROCONVUL THERAPY ECT-SNGL 02/24/2008 ELECTROCONVULSIVE THERAPY performed by CLARENCE UP at OR [facility] ELECTROCONVUL THERAPY ECT-SNGL 02/26/2008 ELECTROCONVULSIVE THERAPY performed by CLARENCE UP at [facility] ELECTROCONVUL THERAPY ECT-SNGL 03/02/2008 ELECTROCONVULSIVE THERAPY performed by CLARENCE UP at OR [facility] ELECTROCONVUL THERAPY ECT-SNGL 03/04/2008 ELECTROCONVULSIVE THERAPY performed by JAMES GALVEZ at [facility] IMPACT TOOTH REMOV PART BONY age 16 PHALANX OR PHALANGES FX W/FIXATION LEFT 3RD -5TH TOES REMOVE CATARACT, INSERT LENS PROSTH Left 08/05/2017 left EXTRACAPSULAR CATARACT REMOVAL WITH INTRAOCULAR LENS performed by Navin Benjamin MD at OR [facility] REMOVE CATARACT, INSERT LENS PROSTH Right 08/21/2017 right EXTRACAPSULAR CATARACT REMOVAL WITH INTRAOCULAR LENS performed by Navin Benjamin MD at OR [facility] US ABDOMEN LIMITED 01/2002 Negative liver, GB, pancreas Review of patient's allergies indicates: No Known Allergies Current Outpatient Medications Medication Sig Dispense Refill ALPRAZolam 0.5 MG Oral Tablet (xaNAX) Take 1 Tablet by mouth as needed for Anxiety. 15 Tablet 0 Pantoprazole Sodium 40 MG Oral Tablet Delayed Release (Protonix) Take 1 tab by mouth twice per day 180 Tablet 1 Lisdexamfetamine Dimesylate 70 MG Oral Capsule (Vyvanse) Take 1 Capsule by mouth in the morning. 90Capsule 0 Lurasidone HCl 20 MG Oral Tablet (Latuda) Take 1 Tablet by mouth in the morning. Total of 140mg daily. 30 Tablet 1 buPROPion HCl ER (XL) 300 MG Oral Tablet Extended Release 24 Hour (Wellbutrin XL) Take 1 Tablet by mouth in the morning. 90 Tablet 1 clomiPRAMINE HCl 75 MG Oral Capsule (Anafranil) Take 2 Capsules by mouth every night at bedtime. 180 Capsule 1 Trion Carbonate 300 MG Oral Capsule (Eskalith) TAKE [...] Total of 140mg daily. 90 Tablet 1 Mounjaro 2.5 MG/0.5ML Subcutaneous Solution Pen-injector (Tirzepatide) Inject 2.5 mg under the skinonce a week. 2 mL 5 Ondansetron 4 MG Oral Tablet Disintegrating (Zofran) Place 1 Tab on tongue every 8 hours as needed for Nausea. dissolve on tongue. (Patient not taking: Reported on 12/02/2023) 12 Tab 1 No current facility-administered medications for this visit. Objective: BP 132/80 | Pulse 76 | Temp 36.7 C (98 F) (Temporal Artery) | Resp 18 | Ht 1.651 m (5' 5") | Wt 90.3 kg (199 lb) | SpO2 97% | BMI 33.12 kg/m | BSA 2.04 m GEN: NAD HEENT: Benign NECK: Supple with no LAD, TM, JVD CHEST: CTA B CV: RRR ABD: Soft, NT/ND, No HSM, NABS EXT: No c,c,e Assessment and Plan: Anemia, unspecified type (Primary) - VITAMIN B12; Future; Expected date: 12/02/2023 - FOLIC ACID; Future; Expected date: 12/02/2023 - IRON SCREEN, INCLUDING TIBC; Future; Expected date: 12/02/2023 - FERRITIN; Future; Expected date: 12/02/2023 - RETICULOCYTE PANEL; Future; Expected date: 12/02/2023 -evaluate worsening anemia with labs. ? If related to psych meds. After labs, may need review with hematology. Weight gain - TSH WITH FREE T4 IF INDICATED; Future; Expected date: 12/02/2023 - Mounjaro 2.5 MG/0.5ML Subcutaneous Solution Pen-injector (Tirzepatide); Inject 2.5 mg under the skin once a week. Prediabetes - Mounjaro 2.5 MG/0.5ML Subcutaneous Solution Pen-injector (Tirzepatide); Inject 2.5 mg under the skin once a week. Class 1 obesity with serious comorbidity and body mass index (BMI) of 33.0 to 33.9 in adult, unspecified obesity type Chronic kidney disease, stage 3a (HCC) -continue to monitor Follow Up: Return in about 6 months (around 06/01/2024) for recheck. | For: recheck 38 min with pt and documentation Lane Malone MD documented in this encounter Nursing Notes * Kanika Barber LPN - 12/02/2023 9:00 AM EST The patient has been properly identified by confirmation of name and date of . Chief Complaint Patient presents with Status Check Annual check up documented in this encounter Plan of Treatment Upcoming Encounters Date Type Department Care Team (Late st Contact Info) Description 01/05/2024 2:00 PM EDT Telemedicine Psychiatry, [address] [address] Jeremy Lezama MD [address] [place] [address] 06/10/2024 9:40 AM EDT Office Visit [facility] [address] [place] [address] Lane Malone MD [address], [place] [id number] 10/13/2024 10:40 AM EST Office Visit Otol[facility]ology [facility] [address] [place] [address] Cleve Gardner PA-C [address] [place] [address] Pending Results Name Type Priority Associated Diagnoses Date /Time VITAMIN B12 Lab Routine Anemia, unspecified type 12/02/2023 9:45 AM EST FOLIC ACID Lab Routine Anemia, unspecified type 12/02/2023 9:45 AM EST IRON SCREEN, INCLUDING TIBC Lab Routine Anemia, unspecified type 12/02/2023 9:45 AM EST FERRITIN Lab Routine Anemia, unspecified type 12/02/2023 9:45 AM EST RETICULOCYTE PANEL Lab Routine Anemia, unspecified type 12/02/2023 9:45 AM EST TSH WITH FREE T4 IF INDICATED Lab Routine Weight gain 12/02/2023 9:45 AM EST Scheduled Orders Name Type Priority Associated Diagnoses Orde r Schedule VITAMIN B12 Lab Routine Anemia, unspecified type Expected: 12/02/2023 (Approximate), Expires: 12/01/2024 FOLIC ACID Lab Routine Anemia, unspecified type Expected: 12/02/2023 (Approximate), Expires: 12/01/2024 IRON SCREEN, INCLUDING TIBC Lab Routine Anemia, unspecified type Expected: 12/02/2023 (Approximate), Expires: 12/01/2024 FERRITIN Lab Routine Anemia, unspecified type Expected: 12/02/2023 (Approximate), Expires: 12/01/2024 RETICULOCYTE PANEL Lab Routine Anemia, unspecified type Expected: 12/02/2023 (Approximate), Expires: 12/01/2024 TSH WITH FREE T4 IF INDICATED Lab Routine Weight gain Expected: 12/02/2023 (Approximate), Expires: 12/01/2024 Scheduled Procedures Name Priority Associated Diagnoses Date/Ti [...] (FLU shot) (#1) 2023 GFR 11/26/2023 05/26/2023, 02/01/2023, 11/25/2022, Additional history exists CKD PHOS USE SMARTSET 40726 05/26/2024 05/26/2023 TSH 05/26/2024 05/26/2023, 11/07, 11/25/2022, Additional history exists CKD HGB USE SMARTSET 16254 11/28/202411/28, 11/29/2022, 11/28/2021, Additional history exists HbA1c 11/28/2024 11/28/2023, 11/07, 11/25/2022, Additional history exists Lipid Panel [...] this encounter Medical Devices Implanted Type Area Installation Manager Device Identifier Shelf Expiration Date Model / Serial / Lot Lens 16.5 Mx60 - [id number] - [id number] Implanted:Qty: 1 on 08/05/2017 by Navin Benjamin MD at OR [facility] Left: Eye BAUSCH & LOMB : SURGICAL 03/05/2020 MX60-16.5 / [id number] / Lens 14.0 Mx60 - [id number] - [id number] Implanted:Qty: 1 on 08/21/2017 by Navin Benjamin MD at OR [facility] Right: Eye BAUSCH & LOMB : SURGICAL 06/05/2018 MX60-14.0 / [id number] / documented as of this encounter Visit Diagnoses Diagnosis Anemia, unspecified type- Primary Weight gain Abnormal weight gain Prediabetes Other abnormal glucose Class 1 obesity with serious comorbidity and body mass index (BMI) of 33.0 to 33.9 in adult, unspecified obesity type Chronic kidney disease, stage 3a (HCC) Other specified hypothyroidism documented in this encounter Advance Directives Latest [...] 12:00 PM 02/01/2008 8:00 PM Care Teams Hvac/R Service Technician Relationship Specialty Start Date End Date Lane Malone MD [address] [facility] [place] [address] PCP - General Family Medicine 01/01/22 documented as of this encounter
--- OUTSIDE RECORDS SUMMARY | 2024-02-22 12:50 | External Medical Summary | Summary of Care ---
Author Name Unknown Organization [facility] Address [address] [place] [address] Phone [phone] Care Team Providers Care Pulmonary Physician Name Role Phone Lane Malone MD Primary Care Provider +1- [phone] Reason for Visit * Reason Onset Date Comments Medication Refill 12/09/2023 Encounter Details Date Type Department Care Team (Late st Contact Info) Description 12/09/2023 Refill Psychiatry, [facility] [address] [place] [address] Jeremy Lezama MD [address] [place] [address] Allergies No known active allergiesdocumented as of this encounter (statuses as of 12/10/2023) Medications Medication Sig Dispensed Refills Start Date [...] the morning. 90 Capsule 0 09/22/2023 Active buPROPion HCl ER (XL) 300 MG Oral Tablet Extended Release 24 Hour (Wellbutrin XL) Take 1 Tablet by mouth in the morning. 90 Tablet 1 10/15/2023 Active clomiPRAMINE HCl 75 MG Oral Capsule (Anafranil) Take 2 Capsules by mouth every night at bedtime. 180 Capsule 1 10/15/2023 Active [place] Carbonate 300 MG Oral Capsule (Eskalith) TAKE [...] 140mg daily. 30 Tablet 1 12/10/2023 Active Lurasidone HCl 20 MG Oral Tablet (Latuda) Take 1 Tablet by mouth in the morning. Total of 140mg daily. 30 Tablet 1 10/15/2023 12/09/19 24 Discontinu ed(Refill) documented as of this encounter (statuses as of 12/10/2023) Active Problems Problem Noted Date Diagnosed Date [...] as of this encounter (statuses as of 12/10/2023) Resolved Problems Problem Noted Date Diagnosed Date [...] as of this encounter (statuses as of 12/10/2023) Immunizations Name Administration Dates Next Due TDAP [...] encounter Miscellaneous Notes * Telephone Encounter - Jeremy Lezama MD - 12/10/2023 10:02 AM EST Signed Prescriptions: Disp Refills Lurasidone HCl 20 MG Oral Tablet (Latuda) 30 Tab*1 Sig: Take 1 Tablet by mouth in the morning. Total of 140mg daily. Authorizing Provider: JEREMY LEZAMA * Telephone Encounter - Clara Carver MED [facility] - 12/10/2023 8:57 AM EST Pending Prescriptions: Disp Refills Lurasidone HCl 20 MG Oral Tablet (Latuda) 30 Tab*1 Sig: Take 1 Tablet by mouth in the morning. Total of 140mg daily. * Telephone Encounter - Clara Carver MED ASSIST - 12/10/2023 8:57 AM EST Refill request from patient (MyG) for Latuda 20mg. Medication last filled on 10/15/23 with 1 refills. Patient last seen on 10/15/23 with return appointment scheduled for 01/05/24. Patient had 1 cancelledappointments and 0 NO SHOW appointments. documented in this encounter Plan of Treatment Upcoming Encounters Date Type Department Care Team (Late st Contact Info) Description 01/05/2024 2:00 PM EDT Telemedicine Psychiatry, [place] [address] [facility] [place] [address] Jeremy Lezama MD [address] [place] [address] 06/10/2024 9:40 AM EDT Office Visit [facility] [address] [place] [address] [address] Malone MD [address] [place], [place] [id number] 10/13/2024 10:40 AM EST Office Visit Otolaryngology [facility] [address] [place] [address] Cleve Gardner PA-C [address] [place] [address] Scheduled Procedures Name Priority Associated Diagnoses Date/Ti [...] COVID-19 Vaccine (1 - 2022- season) 2023 Influenza Vaccine (FLU shot) (#1) 2023 GFR 11/26/2023 05/26/2023, 02/2 01/2023, 11/25/2022, Additional history exists CKD PHOS USE SMARTSET 88846 05/26/2024 05/26/2023 CKD HGB USE SMARTSET 23297 11/28/202411/28, 11/29/2022, 11/28/2021, Additional history exists HbA1c [...] this encounter Medical Devices Implanted Type Area Basting Machine Operator Device Identifier Shelf Expiration Date Model / Serial / Lot Lens 16.5 Mx60 - [id number] - [id number] Implanted:Qty: 1 on 08/05/2017 by Navin Benjamin MD at OR [facility] Left: Eye BAUSCH & LOMB : SURGICAL 03/05/2020 MX60-16.5 / [id number] / Lens 14.0 Mx60 - [id number] - [id number] Implanted:Qty: 1 on 08/21/2017 by Navin Benjamin MD at OR [facility] Right: Eye BAUSCH & LOMB : SURGICAL 06/05/2018 MX60-14.0 / [id number] / documented as of this encounter Advance [...] 12:00 PM 02/01/2008 8:00 PM Care Teams Pulmonary Physician Relationship Specialty Start Date End Date Lane Malone MD [address] [facility] [place] [address] PCP - General Family Medicine 01/01/22 documented as of this encounter
--- OUTSIDE RECORDS SUMMARY | 2024-02-22 12:50 | External Medical Summary ---
Author Name Unknown Address Unknown Organization K01:[facility] [address] [place] [address] Laboratory Report Ordering Provider Test Date Status SASCHA DE ANDA 12/02/2023 09:45:11 Final Observation Date Value Abnormality Reference (Units ) Status MYCODE SPECIMEN-SST 12/02/2023 09:45:11 Freezing of extracted DNA, whole blood and/or serum. Final Performing Location [facility] [address] [place] [address]
--- OUTSIDE RECORDS SUMMARY | 2024-02-22 12:50 | External Medical Summary | Summary of Care ---
Author Name Unknown Organization [facility] Address [address] [facility] [place] [address] Phone [phone] Care Team Providers Care Publicity Consultant Name Role Phone Guerline Muniz MD Primary Care Provider [phone]- [phone] Reason for Visit * Reason Onset Date Comments Medication Refill 11/12/2023 Encounter Details Date Type Department Care Team (Late st Contact Info) Description 11/12/2023 Refill [facility] [address] [place] [address] Guerline Muniz MD [address] [place] [address] Acquired hypothyroidism Allergies No known active allergiesdocumented as of this encounter (statuses as of 11/12/2023) Medications Medication Sig Dispensed Refills Start Date [...] at bedtime. 180 Capsule 1 10/15/2023 Active [place] Carbonate 300 MG Oral Capsule (Eskalith) TAKE 3 CAPSULES BY MOUTH NIGHTLY 270 Capsule 1 10/15/2023 Active Topiramate 50 MG Oral Tablet (Topamax) Take 1 Tablet by mouth in the morning and 1 Tablet before bedtime. 180 Tablet 1 11/12/2023 Active Levothyroxine Sodium 88 MCG Oral Tablet (Levoxyl)Indications :Acquired hypothyroidism TAKE 1 TABLET DAILY 90 Tablet 2 11/12/2023 Active Levothyroxine Sodium 88 MCG Oral Tablet (Levoxyl)Indications :Acquired hypothyroidism TAKE 1 TABLET DAILY 90 Tablet 3 12/07/2022 Discontinue d(Refill) documented as of this encounter (statuses as of 11/12/2023) Active Problems Problem Noted Date Diagnosed Date Hiatal hernia 05/29/2023 Prediabetes 08/19/2022 Overview: Per Prediabetes protocol Chronic kidney disease, stage 3a 12/17/2021 Overview: Per CKD protocol Other specified hypothyroidism 02/04/2008 Major depressive disorder, recurrent episode, mo derate 01/29/2008 Obsessive-compulsive disorder 08/14/2007 Raynaud's syndrome 07/10/2007 ADVANCE DIRECTIVE INFORMATION 09/25/2006 Overview: Information offered-patient declined Laxative abuse Eating disorder Overview: hospitalized, [place], left AMA, mixed type documented as of this encounter (statuses as of 11/12/2023) Resolved Problems Problem Noted Date Diagnosed Date [...] as of this encounter (statuses as of 11/12/2023) Immunizations Name Administration Dates Next Due TDAP [...] encounter Miscellaneous Notes * Telephone Encounter - Jaimie Fuentes, [facility] - 11/12/2023 9:51 PM ESTSigned Prescriptions: Disp Refills Levothyroxine Sodium 88 MCG Oral Tablet (L*90 Tab*2 Sig: TAKE 1TABLET DAILYAuthorizing Provider: GUERLINE MUNIZ User: JAIMIE FUENTES documented in this encounter Plan of Treatment Upcoming Encounters Date Type Department Care Team (Late st Contact Info) Description 11/26/2023 8:30 AM EST Telemedicine Psychiatry, [facility] [address] [place] [address] Jeremy Lezama MD [address] [place] [address] 12/02/2023 9:00 AM EST Office Visit [facility] [address] [place] [phone] Guerline Muniz MD [address] [place], [place] [phone] 10/13/2024 10:40 AM EST Office Visit Otolaryngology [facility] [address] [facility] [place] [id number] Cleve Gardner PA-C [address] [facility] [place] [address] Scheduled Procedures Name Priority Associated Diagnoses Date/Ti [...] Additional history exists CKD HGB USE SMARTSET 55619 11/29/202311/29, 11/28/2021, 11/28/2021, Additional history exists HbA1c 11/29/2023 11/29/2022, 11/07, 08/05/2022, Additional history exists CKD PHOS USE SMARTSET 39235 05/26/2024 05/26/2023 TSH 05/26/2024 05/26/2023, 11/07, 11/25/2022, [...] this encounter Medical Devices Implanted Type Area Emery Wheel Worker Device Identifier Shelf Expiration Date Model / Serial / Lot Lens 16.5 Mx60 - [id number] - [id number] Implanted:Qty: 1 on 08/05/2017 by Navin Benjamin MD at OR [facility] Left: Eye BAUSCH & LOMB : SURGICAL 03/05/2020 MX60-16.5 / [id number] / Lens 14.0 Mx60 - [id number] - [id number] Implanted:Qty: 1 on 08/21/2017 by Navin Benjamin MD at OR [facility] Right: Eye BAUSCH & LOMB : SURGICAL 06/05/2018 MX60-14.0 / [id number] / documented as of this encounter Visit Diagnoses Diagnosis Acquired hypothyroidism Unspecified hypothyroidism documented in this encounter Advance Directives [...] 12:00 PM 02/01/2008 8:00 PM Care Teams Publicity Consultant Relationship Specialty Start Date End Date Guerline Muniz MD [address] [place] [address] PCP - General Family Medicine 01/01/22 documented as of this encounter
--- OUTSIDE RECORDS SUMMARY | 2024-02-22 12:50 | External Medical Summary | Summary of Care ---
Author Name Unknown Organization [facility] Address [address] [place] [address] Phone [phone] Care Team Providers Care Finding Fastener Name Role Phone Lane Malone MD Primary Care Provider +1- [phone] Reason for Visit * Reason Comments Outpatient Testing Encounter Details Date Type Department Care Team (Late st Contact Info) Description 12/02/2023 9:50 AM EST Laboratory Laboratory, [place] [address] [place] [address] [place] [address] [place] [address] [employer] Other*[id number]; Anemia, unspecified type; Weight gain Allergies No known active allergiesdocumented as of [...] at bedtime. 180 Capsule 1 10/15/2023 Active [place] Carbonate 300 MG Oral Capsule (Eskalith) TAKE [...] Description 01/05/2024 2:00 PM EDT Telemedicine Psychiatry, [place] [address] [place] [address] Jeremy Lezama MD [address] [place] [address] 06/10/2024 9:40 AM EDT Office Visit [facility] [address] [place] [address] Lane Maolne MD [address] [place] [address] 10/13/2024 10:40 AM EST Office Visit Otolaryngology [facility] [address] [facility] [place] [address] Cleve Gardner PA-C [address] [place] [address] Pending Results Name Type Priority Associated Diagnoses Date /Time MYCODE SUBSEQUENT ADULT Lab Routine [employer] Other*[id number] 12/02/2023 9:45 AM EST VITAMIN B12 Lab Routine Anemia, unspecified type [...] Routine Weight gain 12/02/2023 9:45 AM EST MYCODE SST1 Lab Routine [employer] Other*[id number] 12/02/2023 9:45 AM EST MYCODE SST2 Lab Routine [employer] Other*[id number] 12/02/2023 9:45 AM EST Scheduled Procedures Name Priority Associated [...] Additional history exists CKD PHOS USE SMARTSET 09757 05/26/2024 05/26/2023 TSH 05/26/2024 05/26/2023, 11/07, 11/25/2022, Additional history exists CKD HGB USE SMARTSET 95796 11/28/202411/28, 11/29/2022, 11/28/2021, Additional history exists HbA1c [...] this encounter Medical Devices Implanted Type Area Flat Examiner Device Identifier Shelf Expiration Date Model / Serial / Lot Lens 16.5 Mx60 - [id number] - [id number] Implanted:Qty: 1 on 08/05/2017 by Navin Benjamin MD at OR [facility] Left: Eye BAUSCH [employer] LOMB : SURGICAL 03/05/2020 MX60-16.5 / [id number] / Lens 14.0 Mx60 - [id number] - [id number] Implanted:Qty: 1 on 08/21/2017 by Navin Benjamin MD at OR [facility] Right: Eye BAUSCH & LOMB : SURGICAL 06/05/2018 MX60-14.0 / [id number] / documented as of this encounter Visit Diagnoses Diagnosis MyCode [employer] Other*[id number] Anemia, unspecified type Weight gain Abnormal weight gain documented in this encounter Advance Directives Latest [...] 12:00 PM 02/01/2008 8:00 PM Care Teams Finding Fastener Relationship Specialty Start Date End Date Lane Malone MD [address] [facility] [place] [address] PCP - General Family Medicine 01/01/22 documented as of this encounter
--- OUTSIDE RECORDS SUMMARY | 2024-02-22 12:50 | External Medical Summary | Summary of Care ---
Author Name Unknown Organization [facility] Address [address] [place] [address] Phone [phone] Care Team Providers Care Electorate Officer Name Role Phone Lane Malone MD Primary Care Provider +1- [phone] Reason for Visit * Reason Onset Date Comments Medication Refill 11/27/2023 Encounter Details Date Type Department Care Team (Late st Contact Info) Description 11/27/2023 Refill Psychiatry, [facility] [address] [place] [address] Shannon Lezama MD [address] [place] [address] Allergies No known active allergiesdocumented as of this encounter (statuses as of 11/27/2023) Medications Medication Sig Dispensed Refills Start Date [...] at bedtime. 180 Capsule 1 10/15/2023 Active [place] Carbonate 300 MG Oral Capsule (Eskalith) TAKE [...] 90 Tablet 1 11/27/2023 Active Lurasidone HCl 120 MG Oral Tablet (Latuda) Take 1 Tablet by mouth in the morning. Total of 140mg daily. 90 Tablet 1 11/24/2023 Discontinue d(Refill) documented as of this encounter (statuses as of 11/27/2023) Active Problems Problem Noted Date Diagnosed Date Hiatal hernia 05/29/2023 Prediabetes 08/19/2022 Overview: Per Prediabetes protocol Chronic kidney disease, stage 3a 12/17/2021 Overview: Per CKD protocol Other specified hypothyroidism 02/04/2008 Major depressive disorder, recurrent episode, mo derate 01/29/2008 Obsessive-compulsive disorder 08/14/2007 Raynaud's syndrome 07/10/2007 ADVANCE DIRECTIVE INFORMATION 09/25/2006 Overview: Information offered-patient declined Laxative abuse Eating disorder Overview: hospitalized, [place], left AMA, mixed type documented as of this encounter (statuses as of 11/27/2023) Resolved Problems Problem Noted Date Diagnosed Date [...] as of this encounter (statuses as of 11/27/2023) Immunizations Name Administration Dates Next Due TDAP [...] encounter Miscellaneous Notes * Telephone Encounter - Oral Hadley [facility] - 11/27/2023 1:30 PM EST Signed Prescriptions: Disp Refills Lurasidone HCl 120 MG Oral Tablet (Latuda) 90 Tab*1 Sig: Take 1 Tablet by mouth in the morning. Total of 140mg daily. Authorizing Provider: SHANNON LEZAMA Ordering User: ORAL HADLEY * Telephone Encounter - Shanna Ledesma CPhT - 11/27/2023 8:44 AM EST Please reroute Rx to [facility] Pending Prescriptions: Disp Refills Lurasidone HCl 120 MG Oral Tablet (Latuda)90 Tab*1 Sig: Take 1 Tablet by mouth in the morning. Total of 140mg daily. Last Visit: Visit date not found (in office), 10/15/2023 (telemedicine) 01/05/2024 If no future appointments scheduled, and last appointment is greater than a year ago, please schedule patient for a follow-up appointment Last date the medication was ordered: 11/24/2023 Patient Phone Numbers Labs: Lab Results Component Value Date/Time CREAT 1.1 (H) 05/26/2023 09:10 AM CREAT 0.9 04/03/2020 09:38 AM POTASSIUM 4.4 05/26/2023 09:10 AM POTASSIUM 4.9 04/03/2020 09:38 AM TSH 4.12 05/26/2023 09:10 AM TSH 1.89 04/03/2020 09:38 AM LDLCALC 149 (H) 11/29/2022 10:02 AM LDLCALC 108 04/03/2020 09:39 AM ALT 45 (H) 05/26/2023 09:10 AM ALT 41 (H) 04/03/2020 09:38 AM HGBA1C 5.9 (H) 11/29/2022 10:02 AM HGBA1C 5.5 04/03/2020 09:38 AM documented in this encounter Plan of Treatment Upcoming Encounters Date Type Department Care Team (Late st Contact Info) Description 12/02/2023 9:00 AM EST Office Visit [facility] [address] [place] [address] Lane Malone MD [address] [place] [address] 01/05/2024 2:00 PM EDT Telemedicine Psychiatry, [address] [place] [address] Shannon Lezama MD [address], [place] [id number] 10/13/2024 10:40 AM EST Office Visit Otolaryngology [facility] [address] [place] [address] Cleve Gardner PA-C [address] [address] Scheduled Procedures Name Priority Associated Diagnoses Date/Ti [...] 10/23/2020 10/23/2015, 07/18/2011 COVID-19 Vaccine (1 - 2022-24 season) 2023 Influenza Vaccine (FLU shot) (#1) 2023 GFR 11/26/2023 05/26/2023, 11/07, 11/25/2022, Additional history exists CKD HGB USE SMARTSET 51644 11/29/202311/29, 11/28/2021, 11/28/2021, Additional history exists HbA1c 11/29/2023 11/29/2022, 11/07, 08/05/2022, Additional history exists CKD PHOS USE SMARTSET 31461 05/26/2024 05/26/2023 TSH 05/26/2024 05/26/2023, 11/07, 11/25/2022, [...] this encounter Medical Devices Implanted Type Area Music Store Manager Device Identifier Shelf Expiration Date Model / Serial / Lot Lens 16.5 Mx60 - [id number] - [id number] Implanted:Qty: 1 on 08/05/2017 by Navin Benjamin MD at OR [facility] Left: Eye BAUSCH [employer] LOMB : SURGICAL 03/05/2020 MX60-16.5 / [id number] / Lens 14.0 Mx60 - [id number] - [id number] Implanted:Qty: 1 on 08/21/2017 by Navin Benjamin MD at OR [facility] Right: Eye BAUSCH & LOMB : SURGICAL 06/05/2018 MX60-14.0 / [id number] / documented as of this encounter Advance [...] 12:00 PM 02/01/2008 8:00 PM Care Teams Electorate Officer Relationship Specialty Start Date End Date Lane Malone MD [address] [facility] [place] [address] PCP - General Family Medicine 01/01/22 documented as of this encounter
--- OUTSIDE RECORDS SUMMARY | 2024-02-22 12:50 | External Medical Summary ---
Author Name Unknown Address Unknown Organization [id number][facility] [place] [address] [place] [address] Laboratory Report Ordering Provider Test Date Status JUAN CUNHAFRANCE 11/28/2023 08:40:04 Final Observation Date Value Abnormality Reference (Units ) Status WBC, Total 11/28/2023 08:40:04 8.51 4.00-10.80 (K/uL) Final RBC 11/28/2023 08:40:04 4.32 3.85-5.15 (M/uL) Final Hemoglobin 11/28/2023 08:40:04 9.8 Below low normal 12.0-15.3 (g/dL) Final HCT 11/28/2023 08:40:04 34.4 Below low normal 36.0-45.2 (%) Final MCV 11/28/2023 08:40:04 79.6 81.5-97.5 (fL) Final MCH 11/28/2023 08:40:04 22.7 27.0-34.0 (pg) Final MCHC 11/28/2023 08:40:04 28.5 32.0-36.0 (g/dL) Final RDW 11/28/2023 08:40:04 19.1 11.5-15.5 (%) Final Platelets 11/28/2023 08:40:04 638 Above high normal 140-400 (K/uL) Final MPV 11/28/2023 08:40:04 9.4 6.6-11.1 (fL) Final Nucleated erythrocytes/100 leukocytes [Ratio] in Blood by Automated count 11/28/2023 08:40:04 0 <=0 (/100 WBCs) Final Performing Location [facility] [place] [address] [facility] [place] [address]
--- OUTSIDE RECORDS SUMMARY | 2024-02-22 12:50 | External Medical Summary ---
Author Name Unknown Address Unknown Organization [id number]:[facility] [place] [address] [facility] [address] [facility] [address] Laboratory Report Ordering Provider Test Date Status CRISTY CUNHA 12/02/2023 09:45:11 Final Observation Date Value Abnormality Reference (Units ) Status TSH 12/02/2023 09:45:11 2.91 0.27-4.20 (uIU/mL) Final Performing Location [facility] [place] - [address] [facility] [address]
--- OUTSIDE RECORDS SUMMARY | 2024-02-22 12:50 | External Medical Summary ---
Author Name Unknown Address Unknown Organization [id number]:LABORATORY [facility] [place] [address] [facility] [address] [facility] [place] [address] Laboratory Report Ordering Provider Test Date Status CRISTY CUNHA 12/02/2023 09:45:11 Final Observation Date Value Abnormality Reference (Units ) Status Ferritin 12/02/2023 09:45:11 8 Below low normal 13- 150 (ng/mL) Final Postmenopausal women have hi gher ferritin levels than pre-menopausal women. The above reference interval is based on pre-menopausal women. Performing Location LABORATORY [facility] [place] - [address] [facility] [address]
--- OUTSIDE RECORDS SUMMARY | 2024-02-22 12:50 | External Medical Summary | Summary of Care ---
Author Name Unknown Organization [facility] Address [address] [place] [address] Phone [phone] Care Team Providers Care Check Writer Salesperson Name Role Phone Lane Malone MD Primary Care Provider +1- [phone] Reason for Visit * Reason Onset Date Comments Medication Refill 12/13/2023 Encounter Details Date Type Department Care Team (Late st Contact Info) Description 12/13/2023 Refill Psychiatry, [address] [address] Jeremy Lezama MD [address] [place] [address] Allergies No known active allergiesdocumented [...] at bedtime. 180 Capsule 1 10/15/2023 Active [place] Carbonate 300 MG Oral Capsule (Eskalith) TAKE [...] declined Laxative abuse Eating disorder Overview: hospitalized, [place], left AMA, mixed type documented as of [...] encounter Miscellaneous Notes * Telephone Encounter - Marlon Mckeon CRNP [...] Drug Monitoring Program in compliance with the [facility] regulations before prescribing a controlled substance. * Telephone Encounter - Clara Carver MED [employer] - 12/15/2023 8:41 AM EDT Pending Prescriptions: Disp Refills Lisdexamfetamine Dimesylate 70 MG Oral Cap*90 Cap*0 Sig: Take 1 Capsule by mouth in the morning. * Telephone Encounter - Clara Carver MED ASSIST - 12/15/2023 8:40 AM EDT Refill request from patient (EmaG) for Vyvanse 70mg. Medication last filled on 09/22/23 with 0 refills. Patient last seen on 10/15/23 with return appointment scheduled for 01/05/24. Patient had 1 cancelled appointments and 0 NO SHOW appointments. documented in this encounter Plan of Treatment Upcoming Encounters Date Type Department Care Team (Late st Contact Info) Description 01/05/2024 2:00 PM EDT Telemedicine Psychiatry, [facility] [address] [place] [address] Jeremy Lezama MD [address] [place] [address] 06/10/2024 9:40 AM EDT Office Visit [facility] [address] [place] [address] [address] Malone MD [address] [place] [address] 10/13/2024 10:40 AM EST Office Visit Otol[facility]ology [facility] [address] [place] [address] Cleve Gardner PA-C [address] [place] [address] Scheduled Procedures Name Priority Associated Diagnoses Date/Ti [...] Additional history exists CKD PHOS USE SMARTSET 99630 05/26/2024 05/26/2023 CKD HGB USE SMARTSET 39904 11/28/202411/28, 11/29/2022, 11/28/2021, Additional history exists HbA1c [...] this encounter Medical Devices Implanted Type Area Concrete Pointer Device Identifier Shelf Expiration Date Model / Serial / Lot Lens 16.5 Mx60 - [id number] - [id number] Implanted:Qty: 1 on 08/05/2017 by Navin Benjamin MD at OR [facility] Left: Eye BAUSCH & LOMB : SURGICAL 03/05/2020 MX60-16.5 / [id number] / Lens 14.0 Mx60 - [id number] - [id number] Implanted:Qty: 1 on 08/21/2017 by Navin Benjamin MD at OR [facility] Right: Eye BAUSCH & LOMB : SURGICAL 06/05/2018 MX60-14.0 / [id number] / documented as of this encounter Advance [...] 12:00 PM 02/01/2008 8:00 PM Care Teams Check Writer Salesperson Relationship Specialty Start Date End Date Lane Malone MD [address] [place] [address] PCP - General Family Medicine 01/01/22 documented as of this encounter
--- OUTSIDE RECORDS SUMMARY | 2024-02-22 12:50 | External Medical Summary | Summary of Care ---
Author Name Unknown Organization [facility] Address [address] [facility] [place] [address] Phone [phone] Care Team Providers Care Heating And Cooling Systems Engineer Name Role Phone Lane Malone MD Primary Care Provider +1- [phone] Encounter Details Date Type Department Care Team (Late st Contact Info) Description 12/04/2023 External Data Patient Risk Medial Allergies No known active allergiesdocumented as of [...] at bedtime. 180 Capsule 1 10/15/2023 Active [place] Carbonate 300 MG Oral Capsule (Eskalith) TAKE [...] declined Laxative abuse Eating disorder Overview: hospitalized, [place], left AMA, mixed type documented as of [...] Description 01/05/2024 2:00 PM EDT Telemedicine Psychiatry, [address] [place] [address] Jeremy Lezama MD [address] [facility] [place] [address] 06/10/2024 9:40 AM EDT [address] [phone] [address] Malone [facility] [address] [facility] [address] 10/13/2024 10:40 AM EST Office Visit Otol[facility]ology [facility] [address] [place] [address] Cleve Gardner PA-C [address] [place] [address] Scheduled Procedures Name Priority Associated Diagnoses Date/Ti [...] Additional history exists CKD PHOS USE SMARTSET 78466 05/26/2024 05/26/2023 CKD HGB USE SMARTSET 33080 11/28/202411/28, 11/29/2022, 11/28/2021, Additional history exists HbA1c 11/28/2024 11/28/2023, 11/07, 11/25/2022, Additional history exists TSH 12/02/2024 12/02/2023, 0810/2022, 11/29/2022, Additional history exists Lipid Panel 11/29/2027 [...] this encounter Medical Devices Implanted Type Area Gas Jockey Device Identifier Shelf Expiration Date Model / Serial / Lot Lens 16.5 Mx60 - [id number] - [id number] Implanted:Qty: 1 on 08/05/2017 by Navin Benjamin MD at OR [facility] Left: Eye BAUSCH & LOMB : SURGICAL 03/05/2020 MX60-16.5 / [id number] / Lens 14.0 Mx60 - [id number] - [id number] Implanted:Qty: 1 on 08/21/2017 by Navin Benjamin MD at OR [facility] Right: Eye BAUSCH & LOMB : SURGICAL 06/05/2018 MX60-14.0 / [id number] / documented as of this encounter Advance [...] 12:00 PM 02/01/2008 8:00 PM Care Teams Heating And Cooling Systems Engineer Relationship Specialty Start Date End Date Lane Malone MD [address] [facility] [place] [address] PCP - General Family Medicine 01/01/22 documented as of this encounter
--- OUTSIDE RECORDS SUMMARY | 2024-02-22 12:50 | External Medical Summary ---
Author Name Unknown Address Unknown Organization K01:[facility] [place] - [address] [place] [address] Laboratory Report Ordering Provider Test Date Status CRISTY CUNHA 12/02/2023 09:45:11 Final Observation Date Value Abnormality Reference (Units ) Status Folic Acid 12/02/2023 09:45:11 9.1 >4.5 (ng/ mL) Final Performing Location LABORATORY [facility] - [address] [place] [address]
--- OUTSIDE RECORDS SUMMARY | 2024-02-22 12:50 | External Medical Summary | Summary of Care ---
Author Name Unknown Organization [facility] Address [address] [place] [address] Phone [phone] Care Team Providers Care Balance Wheel Screw Hole Driller Name Role Phone Lane Malone MD Primary Care Provider +1- [phone] Reason for Visit * Reason Onset Date Comments Medication Refill 11/11/2023 Encounter Details Date Type Department Care Team (Late st Contact Info) Description 11/11/2023 Refill Psychiatry, [facility] [address] [place] [address] Jeremy Lezama MD [address] [place] [address] Allergies No known active allergiesdocumented [...] at bedtime. 180 Capsule 1 10/15/2023 Active [place] Carbonate 300 MG Oral Capsule (Eskalith) TAKE 3 CAPSULES BY MOUTH NIGHTLY 270 Capsule 1 10/15/2023 Active Topiramate 50 MG Oral Tablet (Topamax) Take 1 Tablet by mouth in the morning and 1 Tablet before bedtime. 180 Tablet 1 11/12/2023 Active Topiramate 50 MG Oral Tablet (Topamax) Take 1 Tablet by mouth in the morning and 1 Tablet before bedtime. 180 Tablet 1 07/30/2023 Discontinue d(Refill) documented as of this encounter [...] declined Laxative abuse Eating disorder Overview: hospitalized, [place], left AMA, mixed type documented as of [...] encounter Miscellaneous Notes * Telephone Encounter - Katelynn Flores CRNP - 11/12/2023 4:22 PM ESTSigned Prescriptions: Disp Refills Topiramate 50 MG Oral Tablet (Topamax) 180 Ta*1 Sig: Take 1 Tablet by mouth in the morning and 1 Tablet before bedtime. Authorizing Provider: KATELYNN FLORES * Telephone Encounter - Clara Carver MED ASSIST - 11/12/2023 9:45 AM EST Pending Prescriptions: Disp Refills Topiramate 50 MG Oral Tablet (Topamax) 180 Ta*1 Sig: Take 1 Tablet by mouth in the morning and 1 Tablet before bedtime. * Telephone Encounter - Clara Carver MED ASSIST - 11/12/2023 9:43 AM EST Pt has active refill at [facility]. Pt requesting refill be sent to [facility] in [place]. documented in this encounter Plan of Treatment Upcoming Encounters Date Type Department Care Team (Late st Contact Info) Description 11/26/2023 8:30 AM EST Telemedicine Psychiatry, [address] [place] [address] Jeremy Lezama MD [address] [place] [address] 12/02/2023 9:00 AM EST Office Visit [facility] [address] [place] [address] [address] Malone MD [address] [place] [address] 10/13/2024 10:40 AM EST Office Visit Otolaryngology [facility] [address] [place] [address] Cleve Gardner PA-C [address] [place] [address] Scheduled Procedures Name Priority Associated Diagnoses Date/Ti [...] Additional history exists CKD HGB USE SMARTSET 01540 11/29/202311/29, 11/28/2021, 11/28/2021, Additional history exists HbA1c 11/29/2023 11/29/2022, 11/07, 08/05/2022, Additional history exists CKD PHOS USE SMARTSET 97908 05/26/2024 05/26/2023 TSH 05/26/2024 05/26/2023, 11/07, 11/25/2022, [...] this encounter Medical Devices Implanted Type Area Pipe And Test Supervisor Device Identifier Shelf Expiration Date Model / Serial / Lot Lens 16.5 Mx60 - [id number] - [id number] Implanted:Qty: 1 on 08/05/2017 by Navin Benjamin MD at OR [facility] Left: Eye BAUSCH & LOMB : SURGICAL 03/05/2020 MX60-16.5 / [id number] / Lens 14.0 Mx60 - [id number] - [id number] Implanted:Qty: 1 on 08/21/2017 by Navin Benjamin MD at OR [facility] Right: Eye BAUSCH & LOMB : SURGICAL 06/05/2018 MX60-14.0 / [id number] / documented as of this encounter Advance [...] 12:00 PM 02/01/2008 8:00 PM Care Teams Balance Wheel Screw Hole Driller Relationship Specialty Start Date End Date Lane Malone MD [address] [place] [address] PCP - General Family Medicine 01/01/22 documented as of this encounter
--- OUTSIDE RECORDS SUMMARY | 2024-02-22 12:51 | External Medical Summary | Summary of Care ---
Author Name Unknown Organization [facility] Address [address] [place] [address] Phone [phone] Care Team Providers Care Windshield Technician Name Role Phone Lane Malone MD Primary Care Provider [phone]- [phone] Reason for Visit * Reason Onset Date Comments Medication Refill 09/19/2023 Encounter Details Date Type Department Care Team (Late st Contact Info) Description 09/19/2023 Refill Psychiatry, [facility] [address] [place] [address] Shannon Lezama MD [address] [place] [address] Allergies No known active allergiesdocumented as of this encounter (statuses as of 09/22/2023) Medications Medication Sig Dispensed Refills Start Date End Date Status Ondansetron 4 MG Oral Tablet Disintegrating (Zofran)Indications :Nausea Place 1 Tab on tongue every 8 hours as needed for Nausea. dissolve on tongue. 12 Tab 1 01/10/2021 Active Additional Information Patient not taking.Reported on 05/29/2023 Levothyroxine Sodium 88 MCG Oral Tablet (Levoxyl)Indication s:Acquired hypothyroidism TAKE 1 TABLET DAILY 90 Tablet 3 12/07/2022 Active ALPRAZolam 0.5 MG Oral Tablet (xaNAX) Take 1 Tablet by mouth as needed for Anxiety. 15 Tablet 0 02/04/2023 Active [place] Carbonate 300 MG Oral Capsule (Eskalith) TAKE [...] the morning. 90 Capsule 0 09/22/2023 Active Lisdexamfetamine Dimesylate 70 MG Oral Capsule (Vyvanse) Take 1 Capsule by mouth in the morning. 90 Capsule 0 06/24/2023 09/19/20 23 Discontinu ed(Refill) documented as of this encounter (statuses as of 09/22/2023) Active Problems Problem Noted Date Diagnosed Date Hiatal hernia 05/29/2023 Prediabetes 08/19/2022 Overview: Per Prediabetes protocol Chronic kidney disease, stage 3a 12/17/2021 Overview: Per CKD protocol Other specified hypothyroidism 02/04/2008 Major depressive disorder, recurrent episode, mo derate 01/29/2008 Obsessive-compulsive disorder 08/14/2007 Raynaud's syndrome 07/10/2007 ADVANCE DIRECTIVE INFORMATION 09/25/2006 Overview: Information offered-patient declined Laxative abuse Eating disorder Overview: hospitalized, [place], left AMA, mixed type documented as of this encounter (statuses as of 09/22/2023) Resolved Problems Problem Noted Date Diagnosed Date [...] as of this encounter (statuses as of 09/22/2023) Immunizations Name Administration Dates Next Due TDAP [...] encounter Miscellaneous Notes * Telephone Encounter - Shannon Lezama MD - 09/22/2023 8:45 AM EST Signed Prescriptions: Disp Refills Lisdexamfetamine Dimesylate 70 MG Oral Cap*90 Cap*0 Sig: Take 1 Capsule by mouth in the morning.Authorizing Provider: SHANNON LEZAMA * Telephone Encounter - Kaitlin Vickers LPN - 09/20/2023 9:17 PM ESTPending Prescriptions: Disp Refills Lisdexamfetamine Dimesylate 70 MG Oral Cap*90 Cap*0 Sig: Take 1 Capsule by mouth in the morning. * Telephone Encounter - Kaitlin Vickers LPN - 09/20/2023 9:16 PM EST Refill request from patient (Katerina) for Vyvanse 70mg. Medication last filled on 06/24/23 with 0 refills. Patient last seen on 07/30/23 with return appointment scheduled for 10/15/23. Patient had 0 cancelled appointments and 0 NO SHOW appointments. documented in this encounter Plan of Treatment Upcoming Encounters Date Type Department Care Team (Late st Contact Info) Description 10/10/2023 9:30 AM EST Office Visit Otolaryngology [facility] [address] [place] [address] Corinna Toro MD [address] [place] [address] 10/15/2023 8:30 AM EST Telemedicine Psychiatry, [address] [place] [address] Shannon Lezama MD [address] [place] [address] 12/02/2023 9:00 AM EST Office Visit [facility] [address] [place] [phone] [address] Malone MD [address] [place] [address] Scheduled Procedures Name Priority Associated Diagnoses Date/Ti [...] Additional history exists CKD HGB USE SMARTSET 57703 11/29/202311/29, 11/28/2021, 11/28/2021, Additional history exists HbA1c 11/29/2023 11/29/2022, 11/07, 08/05/2022, Additional history exists CKD PHOS USE SMARTSET 61793 05/26/2024 05/26/2023 TSH 05/26/2024 05/26/2023, 11/07, 11/25/2022, [...] this encounter Medical Devices Implanted Type Area Air Traffic Instructor Device Identifier Shelf Expiration Date Model / Serial / Lot Lens 16.5 Mx60 - [id number] - [id number] Implanted:Qty: 1 on 08/05/2017 by Navin Benjamin MD at OR [facility] Left: Eye [employer] : SURGICAL 03/05/2020 MX60-16.5 / [id number] / Lens 14.0 Mx60 - [id number] - [id number] Implanted:Qty: 1 on 08/21/2017 by Navin Benjamin MD at OR [facility] Right: Eye [employer]OM[employer] : SURGICAL 06/05/2018 MX60-14.0 / [id number] / documented as of this encounter Advance [...] 12:00 PM 02/01/2008 8:00 PM Care Teams Windshield Technician Relationship Specialty Start Date End Date Lane Malone MD [address], [place] [id number] PCP - General Family Medicine 01/01/22 documented as of this encounter
--- OUTSIDE RECORDS SUMMARY | 2024-02-22 12:51 | External Medical Summary | Summary of Care ---
Author Name Unknown Organization [facility] Address [address] [facility] [place] [address] Phone [phone] Care Team Providers Care Take Down Sorter Name Role Phone Lane Malone MD Primary Care Provider [phone]- [phone] Reason for Visit * Reason Onset Date Comments Advice 06/12/2023 Encounter Details Date Type Department Care Team (Late st Contact Info) Description 06/12/2023 Telephone [facility] [address] [place] [address] Lane Malone MD [address] [place] [address] Advice Allergies No known active allergiesdocumented as of this encounter (statuses as of 09/11/2023) Medications Medication Sig Dispensed Refills Start Date [...] for Anxiety. 15 Tablet 0 02/04/2023 Active [place] Carbonate 300 MG Oral Capsule (Eskalith) TAKE 3 CAPSULES BY MOUTH NIGHTLY 270 Capsule 1 04/21/2023 Active Pantoprazole Sodium 40 MG Oral Tablet Delayed Release (Protonix) Take 1 tab by mouth twice per day 180 Tablet 1 05/29/2023 Active clomiPRAMINE HCl 75 MG Oral Capsule (Anafranil) Take 2 Capsules by mouth every night at bedtime. 180 Capsule 1 12/23/2022 06/16/20 Discontinu ed(Refill) Lurasidone HCl 120 MG Oral Tablet (Latuda) Take 1 Tablet by mouth in the morning. 90 Tablet 1 02/19/2023 07/30/20 Discontinu ed(Refill) buPROPion HCl ER (XL) 300 MG Oral Tablet Extended Release 24 Hour (Wellbutrin XL) Take 1 Tablet by mouth in the morning. 90 Tablet 0 03/05/2023 06/22/20 Discontinu ed(Refill) Topiramate 50 MG Oral Tablet (Topamax) Take 1 Tablet by mouth in the morning and 1 Tablet before bedtime. 180 Tablet 0 05/21/2023 07/30/20 Discontinu ed(Refill) Vyvanse 70 MG Oral Capsule (Lisdexamfetamine Dimesylate) Take 1 Capsule by mouth in the morning. 30 Capsule 0 05/21/2023 06/23/20 Discontinu ed(Refill) documented as of this encounter (statuses as of 09/11/2023) Active Problems Problem Noted Date Diagnosed Date Hiatal hernia 05/29/2023 Prediabetes 08/19/2022 Overview: Per Prediabetes protocol Chronic kidney disease, stage 3a 12/17/2021 Overview: Per CKD protocol Other specified hypothyroidism 02/04/2008 Major depressive disorder, recurrent episode, mo derate 01/29/2008 Obsessive-compulsive disorder 08/14/2007 Raynaud's syndrome 07/10/2007 ADVANCE DIRECTIVE INFORMATION 09/25/2006 Overview: Information offered-patient declined Laxative abuse Eating disorder Overview: hospitalized, [place], left AMA, mixed type documented as of this encounter (statuses as of 09/11/2023) Resolved Problems Problem Noted Date Diagnosed Date [...] as of this encounter (statuses as of 09/11/2023) Immunizations Name Administration Dates Next Due TDAP [...] encounter Miscellaneous Notes * Telephone Encounter - Ewelina Rodriguez CCMA - 06/16/2023 11:53 AM EDT Called patient she is aware and understands message. Pt states that she will call back for a GI referral. * Telephone Encounter - Lane Malone MD - 06/12/2023 4:40 PM EDT Since no improvements noted, can decrease pantoprazole back to once per day. I would suggest that she return to see GI as we discussed at OV. She was to have a repeat EGD and may need to give consideration to hiatal hernia repair. As far as the ozempic, I would not suggest that with her current GI issues. Ozempic can worsen her upper GI symptoms. * Telephone Encounter - Ewelina Rodriguez CCMA - 06/12/2023 1:13 PM EDT Please advise as below. * Telephone Encounter - Marsha Zazueta OSA - 06/12/2023 11:49 AM EDT Pt spouse calling says at blanca's last apt dr increased a medication (Pantoprazole) dosage has not noticed any changes, Is wondering what to do if she should stay on the increased dose or go back to the regular dose. Also Blanca has previously been on metformin for pre diabetes is asking if she can be on ozempic for pre diabetes an weight loss Please call pt spouse number back documented in this encounter Plan of Treatment Upcoming Encounters Date Type Department Care Team (Late st Contact Info) Description 10/10/2023 9:30 AM EST Office Visit Otolaryngology [facility] [address] [address] Corinna Toro MD [address] [address] 10/15/2023 8:30 AM EST Telemedicine Psychiatry, [address] [place] [address] Jeremy Lezama MD [address] [place] [facility] [place] [address] 12/02/2023 9:00 AM EST Office Visit [facility] [address] [place] [phone] [address] Malone MD [address] [place] [address] Scheduled Procedures Name Priority Associated [...] Additional history exists CKD HGB USE SMARTSET 34901 11/29/202311/29, 11/28/2021, 11/28/2021, Additional history exists HbA1c 11/29/2023 11/29/2022, 11/07, 08/05/2022, Additional history exists CKD PHOS USE SMARTSET 86496 05/26/2024 05/26/2023 TSH 05/26/2024 05/26/2023, 11/07, 11/25/2022, [...] this encounter Medical Devices Implanted Type Area Manager Finance Device Identifier Shelf Expiration Date Model / Serial / Lot Lens 16.5 Mx60 - [id number] - [id number] Implanted:Qty: 1 on 08/05/2017 by Navin Benjamin MD at OR [facility] Left: Eye [employer] : SURGICAL 03/05/2020 MX60-16.5 / [id number] / Lens 14.0 Mx60 - [id number] - [id number] Implanted:Qty: 1 on 08/21/2017 by Navin Benjamin MD at OR [facility] Right: Eye [employer]OM[employer] : SURGICAL 06/05/2018 MX60-14.0 / [id number] / documented as of this encounter Advance [...] 12:00 PM 02/01/2008 8:00 PM Care Teams Take Down Sorter Relationship Specialty Start Date End Date Lane Malone MD [address] [place] [address] PCP - General Family Medicine 01/01/22 documented as of this encounter
[2024-02-22] MEDS: SODIUM CHLORIDE 0.9% 1,000 ML IV ONE ×2 (13:16→14:17)
--- NOTE | 2024-02-22 13:17 | Emergency Department Note ---
Impression & Plan Hyponatremia Admission ED Provider Note HPI: History obtained from patient. The patient is a 54-year-old female who presents the emergency department with a chief complaint of nausea, vomiting, diarrhea, weakness, lethargy, and headache. Patient states she has had the symptoms for the past 4 to 5 days. Patient's is at the bedside and is assisting with history. Patient states that her symptoms have been relatively persistent for the past 4 to 5 days and she has had increased weakness and lethargy during this time. Patient is had multiple episodes of watery diarrhea, she is also been having episodes of vomiting and has had diminished p.o. intake. Patient states she has had a mild nonspecific headache during this time as well. Patient denies any recent fever, on arrival here to the ED the patient is alert oriented to place and time. Patient does not have any focal deficits. Patient is hypotensive on arrival at 92/66, she is otherwise hemodynamically stable and saturating well on room air. ROS: - Per HPI Differential Diagnosis: Viral gastroenteritis, acute kidney injury/dehydration, acute cholecystitis, small bowel obstruction, acute appendicitis, viral diarrhea, C. difficile colitis, intracranial hemorrhage, meningitis, encephalitis, amongst other potential pathologies. *Outpatient medications and allergy history reviewed. PE: General: Alert, listless appearing HEENT: Normocephalic, trachea midline Eyes: Extraocular eye movement is intact, no scleral erythema Pulmonary: Clear to auscultation bilaterally, no wheezing Cardio: Regular rate and rhythm GI: Abdomen is soft to palpation, there is mild tenderness diffusely without guarding or rigidity : No suprapubic tenderness MSK: No evidence of trauma or malformation of the extremities, no edema Skin: No evidence of rash Neuro: Alert, no focal deficits, ambulates all extremities spontaneously without issue Psychiatric: Cooperative INDEPENDENT INTERPRETATIONS: quality assurance monitor: (As interpreted by myself): - An order was placed for continuous cardiac monitoring - Patient was noted to be in sinus rhythm with a rate of 70 EKG: (As interpreted by myself): Rate: 77 Rhythm: Normal sinus rhythm Intervals: QTc 565 ms, otherwise within normal limits ST changes: No ST elevation Time: 1258 Interventions provided in ED: -IV fluid bolus, half-normal saline with potassium repletion, IV cefepime, IV Flagyl Medical Decision Making: IV was established and lab work obtained, patient was placed on monitoring manager. Lab work shows a leukocytosis of 17.3, hemoglobin is normal, platelet count is slightly high at 605, CMP shows hyponatremia at 125, hypokalemia at 2.4, BUN is elevated at 33, creatinine is 1.77 with unclear baseline. Patient's lactic acid is elevated at 4.3, there is a transaminitis with AST of 209, ALT of 330, and alk phos mildly elevated at 122. Patient's initial high-sensitivity troponin level is also elevated at 29.0. Bilirubin is within normal limits. Lipase is normal. Procalcitonin is elevated at 3.62. Urinalysis shows trace ketones without obvious evidence of infection. CT imaging of the abdomen pelvis was obtained and shows evidence of likely gastroenteritis, there is also suggestion of possible acute cholecystitis and recommendation was made by the interpreting radiologist for ultrasound imaging for further assessment. Ultrasound imaging was obtained and is suggestive of acute cholecystitis without common bile duct dilatation. CT imaging of the head does not show any evidence of acute process. I discussed the patient's presentation with the on-call general surgeon, Dr. Gillespie, he recommends admission to medicine for critical electrolyte abnormalities and requested an MRCP be performed for further assessment to rule out possible choledocholithiasis and potential need for transfer to a tertiary care facility for ERCP. He states that if MRCP is normal he will likely operate on the patient tomorrow morning. I discussed all the above findings with the on-call hospitalist, Dr. Lopez, and the patient was placed for admission in improved condition for further management. Patient was initiated on antibiotics including IV cefepime and IV Flagyl was ordered. Blood cultures were drawn here in the ED. Patient's lactic acid did normalize with IV fluid resuscitation. She was started on IV potassium repletion as well. Patient and her are in agreement for admission and the patient was placed for admission in stable condition for further management. Consultants/Discussions held with other healthcare providers: -General Surgery, Dr. Gillespie -Hospitalist, Dr. Lopez Disposition discussion held by myself with: -Patient and Diagnosis: 1. Acute cholecystitis 2. Hyponatremia, acute 3. Hypokalemia, acute 4. Acute kidney injury 5. Leukocytosis, acute 6. Lactic acidosis, acute 7. Transaminitis, acute 8. Elevated procalcitonin, acute Disposition: Admission Yazan Bialas, DO Emergency Medicine Past Med/Surg History Problem List (Updated 02/22/24 @ 18:00 by Yazan Roque DO) Cholecystitis, acute Severe sepsis with acute organ dysfunction Acute on chronic renal failure Hyponatremia (Acute) Hypokalemia Medical History (Updated 02/22/24 @ 18:00 by Yazan Roque DO) Borderline personality disorder Generalized anxiety disorder Hypothyroidism Chronic renal failure, stage 3a Chronic laxative abuse Eating disorder Major depressive disorder Obsessive compulsive disorder Hiatal hernia Raynauds disease Prediabetes Social History Smoking Status: Never smoker Preferred Language: Lao Feels Safe at Home: Yes Allergies Allergies Allergy/AdvReac Type Severity Reaction Status Date / Time No Known Allergies Allergy Verified 03/16/11 11:05 Home Meds Home Medications Medication Instructions Recorded Confirmed alprazolam 0.5 mg tablet 0.5 mg PO TID PRN Anxiety 02/22/24 02/22/24 bupropion HCl 300 mg 24 hr tablet, 300 mg PO QAM 02/22/24 02/22/24 extended release clomipramine 75 mg capsule 150 mg PO QPM 02/22/24 02/22/24 levothyroxine 88 mcg tablet 88 mcg PO DAILY 02/22/24 02/22/24 lisdexamfetamine 70 mg capsule 70 mg PO QAM 02/22/24 02/22/24 lithium carbonate 300 mg tablet 900 mg PO QPM 02/22/24 02/22/24 lurasidone 120 mg tablet 120 mg PO DAILY 02/22/24 02/22/24 lurasidone 20 mg tablet 20 mg PO DAILY 02/22/24 02/22/24 tirzepatide 5 mg/0.5 mL 5 mg subcut WK 02/22/24 02/22/24 subcutaneous pen injector ([place]) topiramate 50 mg tablet 50 mg PO BID 02/22/24 02/22/24 Results & Data (ED) Vital Signs Vital Signs - 24 hr 02/22/24 12:45 02/22/24 13:00 02/22/24 13:00 Temperature 36.3 C L Temperature Source Temporal Artery Scan Pulse Rate 125 H Pulse Rate [Apical] 75 Pulse Rate from SpO2 Sensor Pulse Rhythm Pulse Rhythm [Apical] Pulse Strength [Apical] Respiratory Rate 18 24 Respiratory Effort / Characteristics Non-Labored Spontaneous Respiratory Depth Normal Blood Pressure 92/66 L Blood Pressure [Right Arm] 92/66 L Blood Pressure Mean 77 Blood Pressure Mean [Right Arm] 74 Blood Pressure Position [Right Arm] Pulse Oximetry 97 92 Oxygen Delivery Method Room Air Sepsis Recent Fever Within 48 Hours No Sepsis New/Unexplained Change in Mental Status N/A Sepsis Action Taken by Nursing No Action Required 02/22/24 13:00 02/22/24 13:03 02/22/24 13:15 Temperature Temperature Source Pulse Rate 75 75 72 Pulse Rate [Apical] Pulse Rate from SpO2 Sensor 76 79 Pulse Rhythm Pulse Rhythm [Apical] Pulse Strength [Apical] Respiratory Rate 27 H 24 Respiratory Effort / Characteristics Respiratory Depth Blood Pressure Blood Pressure [Right Arm] Blood Pressure Mean Blood Pressure Mean [Right Arm] Blood Pressure Position [Right Arm] Pulse Oximetry 95 78 L Oxygen Delivery Method Sepsis Recent Fever Within 48 Hours Sepsis New/Unexplained Change in Mental Status Sepsis Action Taken by Nursing 02/22/24 13:15 02/22/24 13:30 02/22/24 13:30 Temperature Temperature Source Pulse Rate 69 Pulse Rate [Apical] Pulse Rate from SpO2 Sensor 67 Pulse Rhythm Pulse Rhythm [Apical] Pulse Strength [Apical] Respiratory Rate 29 H Respiratory Effort / Characteristics Respiratory Depth Blood Pressure 99/76 L 109/68 Blood Pressure [Right Arm] Blood Pressure Mean 86 82 Blood Pressure Mean [Right Arm] Blood Pressure Position [Right Arm] Pulse Oximetry 96 Oxygen Delivery Method Sepsis Recent Fever Within 48 Hours Sepsis New/Unexplained Change in Mental Status Sepsis Action Taken by Nursing 02/22/24 13:49 02/22/24 14:43 02/22/24 14:55 Temperature Temperature Source Pulse Rate 65 68 Pulse Rate [Apical] 71 Pulse Rate from SpO2 Sensor 65 Pulse Rhythm Regular Pulse Rhythm [Apical] Pulse Strength [Apical] Respiratory Rate 24 26 H Respiratory Effort / Characteristics Respiratory Depth Blood Pressure Blood Pressure [Right Arm] 112/64 Blood Pressure Mean Blood Pressure Mean [Right Arm] 80 Blood Pressure Position [Right Arm] Lying Pulse Oximetry 97 95 96 Oxygen Delivery Method Room Air Sepsis Recent Fever Within 48 Hours Sepsis New/Unexplained Change in Mental Status Sepsis Action Taken by Nursing 02/22/24 16:41 02/22/24 18:00 Temperature Temperature Source Pulse Rate Pulse Rate [Apical] 66 66 Pulse Rate from SpO2 Sensor Pulse Rhythm Pulse Rhythm [Apical] Regular Regular Pulse Strength [Apical] Normal Normal Respiratory Rate 20 20 Respiratory Effort / Characteristics Non-Labored Spontaneous Non-Labored Spontaneous Respiratory Depth Normal Normal Blood Pressure Blood Pressure [Right Arm] 111/72 95/63 L Blood Pressure Mean Blood Pressure Mean [Right Arm] 85 73 Blood Pressure Position [Right Arm] Sitting Lying Pulse Oximetry 96 99 Oxygen Delivery Method Room Air Room Air Sepsis Recent Fever Within 48 Hours Sepsis New/Unexplained Change in Mental Status Sepsis Action Taken by Nursing Laboratory Data 02/22/24 13:05 02/22/24 17:13 Lab Results 02/22/24 02/22/24 02/22/24 Range/Units 13:05 13:08 13:56 WBC 17.31 H (4.8-10.8) K/ul RBC 5.83 H (4.20-5.40) M/uL Hgb 13.6 (12.0-16.0) g/dl POC Hgb 16.3 H (12.0-16.0) g/dl Hct 42.7 (37.0-47.0) % POC Hct 48 H (37-47) % MCV 73.2 L (80.0-100.0) fL MCH 23.3 L (25.0-34.0) pg MCHC 31.9 L (32.0-36.0) g/dL RDW Std Deviation 47.5 H (36.4-46.3) fL RDW Coeff of Celestina 19.1 H (11.5-14.5) % Plt Count 605 H (130-400) K/uL MPV 10.9 (9.4-12.4) fL Immature Gran % (Auto) 2.5 % Neut % (Auto) 87.1 % Lymph % (Auto) 6.0 % [place] % (Auto) 3.6 % Eos % (Auto) 0.3 % Baso % (Auto) 0.5 % Neut # (Auto) 15.08 H (1.40-6.50) K/uL Lymph # (Auto) 1.03 L (1.20-3.40) K/uL [place] # (Auto) 0.62 H (0.11-0.59) K/uL Eos # (Auto) 0.06 (0.00-0.50) K/uL Baso # (Auto) 0.08 (0.00-0.20) K/uL Immature Gran # (Auto) 0.44 H (0.01-0.20) K/uL PT 12.1 H (9.0-12.0) Seconds INR 1.1 (0.9-1.1) POC Sodium 125 L (135-144) mmol/L Sodium 125 L (136-145) mmol/L POC Potassium 2.2 L* (3.3-5.0) mmol/L Potassium 2.4 L* (3.5-5.1) mmol/L POC Chloride 89 L (101-112) mmol/L Chloride 87 L (98-107) mmol/L Carbon Dioxide 22 (21-32) mmol/L POC Total CO2 21 L (24-31) mmol/L Anion Gap 16 H (3-11) POC Anion Gap 18.0 (16-25) mmol/L POC BUN 34 H (7-18) mg/dl BUN 33 H (6-23) mg/dl Creatinine 1.77 H (0.6-1.2) mg/dl POC Creatinine 2.0 H (0.6-1.3) mg/dl Est Cr Clr Drug Dosing 35.8 ml/min Est GFR ( Amer) 37.1 ml/min Est GFR (Non-Af Amer) 32.0 ml/min BUN/Creatinine Ratio 18.6 (10-20) Glucose 118 H (70-99(Fasting)) mg/dl POC Glucose (other) 122 H (70-99) mg/dl Lactate 4.3 H* (0.4-2.0) mmol/L Calcium 10.5 H (8.6-10.3) mg/dl POC Ioniz Calcium [place] 1.24 (1.12-1.32) mmol/l Magnesium (1.7-2.4) mg/dl Total Bilirubin 0.6 (0.2-1.0) mg/dl AST 209 H (13-39) U/L ALT 330 H (7-52) U/L Alkaline Phosphatase 122 H (34-104) U/L Troponin I High Sens 29.0 H (0-14) pg/ml Total Protein 7.5 (6.0-8.3) gm/dl Albumin 3.9 (3.4-5.0) gm/dl Globulin 3.6 (2.5-4.0) gm/dl Albumin/Globulin Ratio 1.1 (0.9-2) Lipase 31 (11-82) U/L Procalcitonin 3.62 H (0-0.5) ng/ml Urine Color Urine Appearance (Clear) Urine pH (4.5-7.5) Ur Specific [place] (1.000-1.030) Urine Protein (Negative) Urine Glucose (UA) (Negative) Urine Ketones (Negative) Urine Blood (Negative) Urine Nitrite (Negative) Urine Bilirubin (Negative) Urine Urobilinogen (Negative) Ur Leukocyte Esterase (Negative) Urine WBC (Auto) (0-5) /hpf Urine RBC (Auto) (0-2) /hpf U Hyaline Cast (Auto) (0-2) /lpf U Epithel Cells (Auto) (0-2) /hpf Urine Bacteria (Auto) (None Seen) Stl C. diff Tox B Gene (Neg) [place] (0.6-1.2) mmol/L Adenovirus (PCR) Not Detected (NotDetected) B. pertussis DNA (PCR) Not Detected (NotDetected) B.parapertussis DNA PCR Not Detected (NotDetected) C. pneumoniae DNA (PCR) Not Detected (NotDetected) Coronavirus OC43 (PCR) Not Detected (NotDetected) Coronavirus HKU1 (PCR) Not Detected (NotDetected) Coronavirus 229E (PCR) Not Detected (NotDetected) SARS-CoV-2 (PCR) Not Detected (NotDetected) Coronavirus NL63 (PCR) Not Detected (NotDetected) Human Metapneumovir PCR Not Detected (NotDetected) Influenza Type A (PCR) Not Detected (NotDetected) Influenza Type B (PCR) Not Detected (NotDetected) M. pneumoniae (PCR) Not Detected (NotDetected) Parainfluenza 1 (PCR) Not Detected (NotDetected) Parainfluenza 2 (PCR) Not Detected (NotDetected) Parainfluenza 3 (PCR) Not Detected (NotDetected) Parainfluenza 4 (PCR) Not Detected (NotDetected) RSV (PCR) Not Detected (NotDetected) Entero/Rhino (PCR) Not Detected (NotDetected) 02/22/24 02/22/24 02/22/24 Range/Units 14:59 16:37 17:13 WBC (4.8-10.8) K/ul RBC (4.20-5.40) M/uL Hgb (12.0-16.0) g/dl POC Hgb (12.0-16.0) g/dl Hct (37.0-47.0) % POC Hct (37-47) % MCV (80.0-100.0) fL MCH (25.0-34.0) pg MCHC (32.0-36.0) g/dL RDW Std Deviation (36.4-46.3) fL RDW Coeff of Celestina (11.5-14.5) % Plt Count (130-400) K/uL MPV (9.4-12.4) fL Immature Gran % (Auto) % Neut % (Auto) % Lymph % (Auto) % [place] % (Auto) % Eos % (Auto) % Baso % (Auto) % Neut # (Auto) (1.40-6.50) K/uL Lymph # (Auto) (1.20-3.40) K/uL [place] # (Auto) (0.11-0.59) K/uL Eos # (Auto) (0.00-0.50) K/uL Baso # (Auto) (0.00-0.20) K/uL Immature Gran # (Auto) (0.01-0.20) K/uL PT (9.0-12.0) Seconds INR (0.9-1.1) POC Sodium (135-144) mmol/L Sodium 126 L (136-145) mmol/L POC Potassium (3.3-5.0) mmol/L Potassium 2.3 L* (3.5-5.1) mmol/L POC Chloride (101-112) mmol/L Chloride 96 L (98-107) mmol/L Carbon Dioxide 22 (21-32) mmol/L POC Total CO2 (24-31) mmol/L Anion Gap 8 (3-11) POC Anion Gap (16-25) mmol/L POC BUN (7-18) mg/dl BUN 32 H (6-23) mg/dl Creatinine 1.43 H D (0.6-1.2) mg/dl POC Creatinine (0.6-1.3) mg/dl Est Cr Clr Drug Dosing 44.3 ml/min Est GFR ( Amer) 48.0 ml/min Est GFR (Non-Af Amer) 41.4 ml/min BUN/Creatinine Ratio 22.4 H (10-20) Glucose 126 H (70-99(Fasting)) mg/dl POC Glucose (other) (70-99) mg/dl Lactate 1.5 (0.4-2.0) mmol/L Calcium 8.7 (8.6-10.3) mg/dl POC Ioniz Calcium [place] (1.12-1.32) mmol/l Magnesium 2.0 (1.7-2.4) mg/dl Total Bilirubin (0.2-1.0) mg/dl AST (13-39) U/L ALT (7-52) U/L Alkaline Phosphatase (34-104) U/L Troponin I High Sens 24.3 H (0-14) pg/ml Total Protein (6.0-8.3) gm/dl Albumin (3.4-5.0) gm/dl Globulin (2.5-4.0) gm/dl Albumin/Globulin Ratio (0.9-2) Lipase (11-82) U/L Procalcitonin (0-0.5) ng/ml Urine Color Yellow Urine Appearance Clear (Clear) Urine pH 6.5 (4.5-7.5) Ur Specific [place] 1.033 H (1.000-1.030) Urine Protein Negative (Negative) Urine Glucose (UA) Negative (Negative) Urine Ketones Trace H (Negative) Urine Blood Negative (Negative) Urine Nitrite Negative (Negative) Urine Bilirubin Negative (Negative) Urine Urobilinogen Negative (Negative) Ur Leukocyte Esterase 2+ H (Negative) Urine WBC (Auto) 21-50 H (0-5) /hpf Urine RBC (Auto) 0-2 (0-2) /hpf U Hyaline Cast (Auto) 0-2 (0-2) /lpf U Epithel Cells (Auto) 3-5 H (0-2) /hpf Urine Bacteria (Auto) 1+ H (None Seen) Stl C. diff Tox B Gene Negative Cdiff Gene (Neg) [place] 1.5 H (0.6-1.2) mmol/L Adenovirus (PCR) (NotDetected) B. pertussis DNA (PCR) (NotDetected) B.parapertussis DNA PCR (NotDetected) C. pneumoniae DNA (PCR) (NotDetected) Coronavirus OC43 (PCR) (NotDetected) Coronavirus HKU1 (PCR) (NotDetected) Coronavirus 229E (PCR) (NotDetected) SARS-CoV-2 (PCR) (NotDetected) Coronavirus NL63 (PCR) (NotDetected) Human Metapneumovir PCR (NotDetected) Influenza Type A (PCR) (NotDetected) Influenza Type B (PCR) (NotDetected) M. pneumoniae (PCR) (NotDetected) Parainfluenza 1 (PCR) (NotDetected) Parainfluenza 2 (PCR) (NotDetected) Parainfluenza 3 (PCR) (NotDetected) Parainfluenza 4 (PCR) (NotDetected) RSV (PCR) (NotDetected) Entero/Rhino (PCR) (NotDetected) Administered Medications Potassium Chloride (K Wilson / Wtr) 10 meq in 100 mls @ 100 mls/hr IV Q1H REPLACED BY [facility] Stop: 02/22/24 20:59 Last Admin: 02/22/24 17:59 Dose: 100 mls/hr Documented By: Infusion: 02/22/24 17:59 Dose: Infused Documented By: Admin: 02/22/24 17:10 Dose: 100 mls/hr Documented By: GLORIA Sodium Chloride (Nss) 500 mls @ 125 mls/hr IV .Q4H JUAN Stop: 03/23/24 16:59 Last Admin: 02/22/24 17:10 Dose: 125 mls/hr Documented By: GLORIA Discontinued Medications Sodium Chloride (Nss) 1,000 mls @ 999 mls/hr IV .Q1H1M ONE Stop: 02/22/24 14:14 Last Infusion: 02/22/24 14:17 Dose: Infused Documented By: Admin: 02/22/24 13:16 Dose: 999 mls/hr Documented By: YAZMIN Sodium Chloride (Nss) 1,000 mls @ 999 mls/hr IV .Q1H1M ONE Stop: 02/22/24 14:15 Last Infusion: 02/22/24 15:23 Dose: Infused Documented By: Admin: 02/22/24 14:17 Dose: 999 mls/hr Documented By: YAZMIN Potassium Chloride/Dextrose/Sod Cl (D5w And 1/2nss + 20meq Kcl) 20 meq in 1,000 mls @ 150 mls/hr IV .Q6H40M JUAN Stop: 03/23/24 14:14 Last Admin: 02/22/24 14:42 Dose: 150 mls/hr Documented By: YAZMIN Cefepime HCl 2,000 mg/ Syringe 20 mls @ 5 mls/min IV NOW STA; Protocol Stop: 02/22/24 14:32 Last Admin: 02/22/24 15:02 Dose: 5 mls/min Documented By: DARRION Ioversol (Optiray 320 100ml) 92 ml IV ONCE ONE Stop: 02/22/24 14:39 Last Admin: 02/22/24 14:38 Dose: 92 ml Documented By: ELOISE Imaging Data Radiologist's Impression: Abdomen/Pelvis CT 02/22/24 13:[address] WITH IV CONTRAST CT DOSE: 1814.03 mGy.cm HISTORY: Acute nodule and vomiting with generalized abdominal pain N/V/D, abd pain TECHNIQUE: Multiaxial CT images of the abdomen and pelvis were performed following the IV administration of 92 cc of Optiray, A dose lowering technique was utilized adhering to the principles of ALARA. COMPARISON STUDY: None. FINDINGS: Bibasilar patchy groundglass nodular densities with mild patchy right middle lobe consolidation. No free air. Unremarkable spleen, pancreas and adrenal glands. Distended gallbladder with wall thickening and pericholecystic fluid. Patent portal vein. Focal fatty infiltration of the left hepatic lobe adjacent to the falciform ligament. Scattered bilateral nonobstructing renal calculi measuring up to approximately 4 mm. No ureteral calculi or hydronephrosis. Urinary bladder wall thickening with partial distention. Unremarkable uterus. Mild atherosclerosis of the abdominal aorta. No lymphadenopathy. Distended fluid-filled distal esophagus. Moderate-sized hiatal hernia. Air and fluid filled large and small bowel. Normal appendix. No acute fracture. No destructive bone lesions identified. IMPRESSION: 1. Air and fluid filled large and small bowel loops suggestive of a nonspecific enteritis/diarrheal illness. 2. Distended gallbladder with wall thickening could be correlated with ultrasound to exclude acute cholecystitis. 3. Normal appendix. 4. Moderate-sized hiatal hernia. 5. Nonobstructing bilateral nephrolithiasis. No hydronephrosis. ACT 112: Negative or not required by law. The above report was generated using voice recognition software. It may contain grammatical, syntax or spelling errors. Electronically signed by: David Juarez M.D. 02/22/2024 2:[address] 02/22/24 13:15 CT head/brain wo con CLINICAL HISTORY: 54 years-old Female with ASHLEY. Acute headache TECHNIQUE: Multiple axial CT images of the head were obtained without contrast. A dose lowering technique was utilized adhering to the principles of ALARA. COMPARISON: 04/26/2009 FINDINGS: No acute intracranial hemorrhage, midline shift, intracranial mass, hydrocephalus, territorial ischemia or abnormal extra-axial collection. The calvarium is intact. Bilateral lens repair. The paranasal sinuses, mastoid air cells, and middle ear cavities are clear. IMPRESSION: No acute intracranial abnormality. ACT 112: Negative or not required by law. The above report was generated using voice recognition software. It may contain grammatical, syntax or spelling errors. Electronically signed by: David Juarez M.D. 02/22/2024 2:49 PM Gallbladder Ultrasound 02/22/24 15:05 ABDOMINAL ULTRASOUND, RIGHT UPPER QUADRANT HISTORY: Acute nausea with vomiting N/V. COMPARISON: CT of same day FINDINGS: Pancreas: The pancreas demonstrates a normal echotexture. Liver: Unremarkable. Gallbladder: Distended gallbladder with tiny probable gallstones and biliary sludge. The bladder wall is thickened, 3 mm. Pericholecystic fluid. Negative sonographic Lema's sign. CBD: 0.4 cm. Right kidney: No hydronephrosis. IMPRESSION: 1. Distended gallbladder with cholelithiasis, wall thickening and pericholecystic fluid. Negative sonographic Lema's sign. Findings are suspicious for acute cholecystitis. 2. No biliary ductal dilation. ACT 112: Negative or not required by law. Electronically signed by: David Juarez M.D. 02/22/2024 3:58 PM Discharge Plan Visit Data Chief Complaint: Illness Stated Complaint: WEAK, DIARRHEA, VOMIT, MIGHT BE A MED SIDE EFFECT ED Provider: Yazan Roque Discharge Problem: Hyponatremia Forms Stand Alone Forms: [facility] Prescriptions Prescriptions: No Action clomipramine 75 mg Capsule 150 mg PO QPM levothyroxine 88 mcg Tablet 88 mcg PO DAILY alprazolam 0.5 mg Tablet 0.5 mg PO TID PRN (Reason: Anxiety) lithium carbonate 300 mg Tablet 900 mg PO QPM bupropion HCl 300 mg tablet extended release 24 hr 300 mg PO QAM topiramate 50 mg tablet 50 mg PO BID lisdexamfetamine 70 mg Capsule 70 mg PO QAM lurasidone 20 mg tablet 20 mg PO DAILY lurasidone 120 mg tablet 120 mg PO DAILY Mounjaro 5 mg/0.5 mL pen injector 5 mg SUBCUT WK Referrals Referrals: PCP,NO [Primary Care Provider] -
[2024-02-22 13:21] LABS: iSTAT Hemoglobin 16.3 g/dl (12.0-16.0); iSTAT Ionized Calcium 1.24 mmol/l (1.12-1.32); iSTAT Potassium 2.2 mmol/L (3.3-5.0)
[2024-02-22 13:33] LABS: Basophils # (auto) 0.08 K/uL (0.00-0.20); Basophils % (auto) 0.5 %; Eosinophils # (auto) 0.06 K/uL (0.00-0.50); Eosinophils % (auto) 0.3 %; Hematocrit (blood only) 42.7 % (37.0-47.0); Hemoglobin 13.6 g/dl (12.0-16.0); Immature Granulocytes # (auto) 0.44 K/uL (0.01-0.20); Immature Granulocytes % (auto) 2.5 %; Lymphocytes # (auto) 1.03 K/uL (1.20-3.40); Mean Corpuscular Hemoglobin 23.3 pg (25.0-34.0); Mean Corpuscular Hgb Conc 31.9 g/dL (32.0-36.0); Mean Corpuscular Volume 73.2 fL (80.0-100.0); Mean Platelet Volume 10.9 fL (9.4-12.4); Monocytes # (auto) 0.62 K/uL (0.11-0.59); Monocytes % (auto) 3.6 %; Neutrophils # (auto) 15.08 K/uL (1.40-6.50); Neutrophils % (auto) 87.1 %; Platelet Count 605 K/uL (130-400); RDW Coefficient of Variation 19.1 % (11.5-14.5); RDW Standard Deviation 47.5 fL (36.4-46.3); Red Blood Count 5.83 M/uL (4.20-5.40); White Blood Count 17.31 K/ul (4.8-10.8)
[2024-02-22 13:55] LABS: INR 1.1 (0.9-1.1); Prothrombin Time 12.1 Seconds (9.0-12.0)
[2024-02-22 14:05] LABS: Albumin Globulin Ratio 1.1 (0.9-2); Albumin Level 3.9 gm/dl (3.4-5.0); BUN Creatinine Ratio 18.6 (10-20); Bilirubin,Total 0.6 mg/dl (0.2-1.0); Calcium 10.5 mg/dl (8.6-10.3); Creatinine Clr Calc Pharmacy 35.8 ml/min; Est GFR (African American) 37.1 ml/min; Globulin 3.6 gm/dl (2.5-4.0); Potassium 2.4 mmol/L (3.5-5.1); Total Protein 7.5 gm/dl (6.0-8.3)
--- NOTE | 2024-02-22 14:18 | Electrocardiogram Report ---
Test Reason : Blood Pressure : / mmHG Vent. Rate : 077 BPM Atrial Rate : 077 BPM P-R Int : 162 ms QRS Dur : 098 ms QT Int : 500 ms P-R-T Axes : 028 005 096 degrees QTc Int : 565 ms Normal sinus rhythm Left ventricular hypertrophy with repolarization abnormality ( [place]if[place] product ) Prolonged QT Abnormal ECG No previous ECGs available Confirmed by Nelson Perez ([id number]) on 02/22/2024 2:17:35 PM Referred By: REFERRED SELF Confirmed By:Nelson Perez
[2024-02-22] MEDS: OPTIRAY 320 100ml IV ONE (14:38)
[2024-02-22] MEDS: D5W AND 1/2NSS + 20MEQ KCL 20 MEQ/1,000 ML BAG IV SCH (14:42)
--- NOTE | 2024-02-22 14:51 | CT Scan Report ---
CT head/brain wo con CLINICAL HISTORY: 54 years-old Female with ASHLEY. Acute headache TECHNIQUE: Multiple axial CT images of the head were obtained without contrast. A dose lowering tech nique was utilized adhering to the principles of ALARA. COMPARISON: 04/26/2009 FINDINGS: No acute intracranial hemorrhage, midline shift, intracranial mass, hydrocephalus, territorial ischem ia or abnormal extra-axial collection. The calvarium is intact. Bilateral lens repair. The paranasal sinuses, mastoid air cells, and middle ear cavities are clear. IMPRESSION: No acute intracranial abnormality. ACT 112: Negative or not required by law. The above report was generated using voice recognition software. It may contain grammatical, syntax o r spelling errors. Electronically signed by: David Juarez M.D. 02/22/2024 2:49 PM
[2024-02-22 14:53] LABS: Adenovirus PCR Not Detected (NotDetected); Bordetella parapertussis PCR Not Detected (NotDetected); Bordetella pertussis PCR Not Detected (NotDetected); Chlamydia pneumoniae PCR Not Detected (NotDetected); Coronavirus 229E PCR Not Detected (NotDetected); Coronavirus CoV-2 (COVID19)PCR Not Detected (NotDetected); Coronavirus HKU1 PCR Not Detected (NotDetected); Coronavirus NL63 PCR Not Detected (NotDetected); Coronavirus OC43PCR Not Detected (NotDetected); Human Metapneumovirus PCR Not Detected (NotDetected); Influenza A PCR Not Detected (NotDetected); Influenza B PCR Not Detected (NotDetected); Mycoplasma pneumoniae PCR Not Detected (NotDetected); Parainfluenza Virus 1 PCR Not Detected (NotDetected); Parainfluenza Virus 2 PCR Not Detected (NotDetected); Parainfluenza Virus 3 PCR Not Detected (NotDetected); Parainfluenza Virus 4 PCR Not Detected (NotDetected); Respiratory Syncytial VirusPCR Not Detected (NotDetected); Rhinovirus/Enterovirus PCR Not Detected (NotDetected)
--- NOTE | 2024-02-22 14:57 | CT Scan Report ---
ABDOMEN AND PELVIS CT WITH IV CONTRAST CT DOSE: 1814.03 mGy.cm HISTORY: Acute nodule and vomiting with generalized abdominal pain N/V/D, abd pain TECHNIQUE: Multiaxial CT images of the abdomen and pelvis were performed following the IV administrat ion of 92 cc of Optiray, A dose lowering technique was utilized adhering to the principles of ALARA. COMPARISON STUDY: None. FINDINGS: Bibasilar patchy groundglass nodular densities with mild patchy right middle lobe consolida tion. No free air. Unremarkable spleen, pancreas and adrenal glands. Distended gallbladder with wall thickening and pericholecystic fluid. Patent portal vein. Focal fatty infiltration of the left hepati c lobe adjacent to the falciform ligament. Scattered bilateral nonobstructing renal calculi measuring up to approximately 4 mm. No ureteral calc paulie or hydronephrosis. Urinary bladder wall thickening with partial distention. Unremarkable uterus. Mild atherosclerosis of the abdominal aorta. No lymphadenopathy. Distended fluid-filled distal esophagus. Moderate-sized hiatal hernia. Air and fluid filled large and small bowel. Normal appendix. No acute fracture. No destructive bone lesions identified. IMPRESSION: 1. Air and fluid filled large and small bowel loops suggestive of a nonspecific enteritis/diarrheal i llness. 2. Distended gallbladder with wall thickening could be correlated with ultrasound to exclude acute ch olecystitis. 3. Normal appendix. 4. Moderate-sized hiatal hernia. 5. Nonobstructing bilateral nephrolithiasis. No hydronephrosis. ACT 112: Negative or not required by law. The above report was generated using voice recognition software. It may contain grammatical, syntax o r spelling errors. Electronically signed by: David Juarez M.D. 02/22/2024 2:55 PM
[2024-02-22] MEDS: CEFEPIME 2,000 MG in SYRINGE 0 ML IV STA (15:02)
--- NOTE | 2024-02-22 16:00 | Ultrasound Report ---
ABDOMINAL ULTRASOUND, RIGHT UPPER QUADRANT HISTORY: Acute nausea with vomiting N/V. COMPARISON: CT of same day FINDINGS: Pancreas: The pancreas demonstrates a normal echotexture. Liver: Unremarkable. Gallbladder: Distended gallbladder with tiny probable gallstones and biliary sludge. The bladder wall is thickened, 3 mm. Pericholecystic fluid. Negative sonographic Lema's sign. CBD: 0.4 cm. Right kidney: No hydronephrosis. IMPRESSION: 1. Distended gallbladder with cholelithiasis, wall thickening and pericholecystic fluid. Negative son ographic Lema's sign. Findings are suspicious for acute cholecystitis. 2. No biliary ductal dilation. ACT 112: Negative or not required by law. Electronically signed by: David Juarez M.D. 02/22/2024 3:58 PM
[2024-02-22 16:51] LABS: Appearance Urine Clear (Clear); Bacteria Urine Automated 1+ (None Seen); Bilirubin Urine Negative (Negative); Blood Urine Negative (Negative); Cast Urine Automated 0-2 /lpf (0-2); Color Urine Yellow; Glucose Urine UA Negative (Negative); Ketones Urine Trace (Negative); Leukocyte Esterase Urine 2+ (Negative); Nitrite Urine Negative (Negative); Protein Urine Negative (Negative); RBC Urine Automated 0-2 /hpf (0-2); Specific Gravity Urine 1.033 (1.000-1.030); Urobilinogen Urine Negative (Negative); WBC Urine Automated 21-50 /hpf (0-5); pH Urine 6.5 (4.5-7.5)
[2024-02-22] MEDS: SODIUM CHLORIDE 0.9% 500 ML IV SCH ×2 (17:10→19:20)
[2024-02-22] MEDS: POTASSIUM CHLORIDE / WTR 10 MEQ/100 ML PLCT IV SCH (17:10)
--- NOTE | 2024-02-22 17:34 | History & Physical Report ---
Date of Service February 22, 2024 Assessment & Plan (1) Severe sepsis with acute organ dysfunction: (2) Acute on chronic renal failure: (3) Hyponatremia: (4) Hypokalemia: (5) Cholecystitis, acute: Plan Patient is a 54-year-old female presents to the ED with severe electrolyte abn ormalities, acute kidney injury and evidence of severe dehydration due to diarrheal illness. Imaging suggest possible cholecystitis. With severe lactic acidosis, elevated procalcitonin, leukocytosis and acute kidney injury, patient meets criteria severe sepsis with organ dysfunction due to cholecystitis. Admit to the hospital Fluid resuscitation Replace potassium Empiric antibiotics to cover cholecystitis Consult surgery, ED physician spoke with surgery on-call who recommended MRCP when medically stabilized [place] level pending, will hold lithium until resulted Monitor sodium levels and potassium levels Monitor other electrolytes and renal function Will hold Mounjaro at this time, it can cause significant gastrointestinal complaints can cause cholecystitis, diarrheal illnesses Check TSH History of Present Illness Chief Complaint: Severe diarrhea and weakness Primary Care Provider: NO PCP Patient is a 54-year-old female with prediabetes and multiple mental health diagnoses presents to the emergency room with above complaint. In the emergency room had numerous electrolyte abnormalities as well as imaging suggestive of possible acute cholecystitis. She was referred to our service for further evaluation. Time my evaluation patient was feeling a bit better. She presented quite hypotensive which it was responded to IV fluid resuscitation. She reports diarrheal stools too numerous to count over this entire week. She denies any spoiled food, recent travel, undercooked food. She denies excessive use of laxatives. No one else in the family has a diarrheal illness. She was able to continue taking her medicines she was intermittently nauseated but really was unable to eat eat or drink a whole lot over the last week. She noticed her lips and tongue getting extremely dry. She came to the emergency room for evaluation. She did just start Mounjaro within the past couple months. She is very hesitant to stop taking that because it is helping her lose weight. She follows regularly with a psychiatrist. She denies any chest pain or shortness of breath. No changes in her urine that she has noticed. She has not had any fevers but does admit to some chills Allergies Allergy/AdvReac Type Severity Reaction Status Date / Time No Known Allergies Allergy Verified 03/16/11 11:05 Home Medications Medication Instructions Recorded Confirmed Type alprazolam 0.5 mg tablet 0.5 mg PO TID PRN Anxiety 02/22/24 02/22/24 History bupropion HCl 300 mg 24 hr tablet, 300 mg PO QAM 02/22/24 02/22/24 History extended release clomipramine 75 mg capsule 150 mg PO QPM 02/22/24 02/22/24 History levothyroxine 88 mcg tablet 88 mcg PO DAILY 02/22/24 02/22/24 History lisdexamfetamine 70 mg capsule 70 mg PO QAM 02/22/24 02/22/24 History lithium carbonate 300 mg tablet 900 mg PO QPM 02/22/24 02/22/24 History lurasidone 120 mg tablet 120 mg PO DAILY 02/22/24 02/22/24 History lurasidone 20 mg tablet 20 mg PO DAILY 02/22/24 02/22/24 History tirzepatide 5 mg/0.5 mL 5 mg subcut WK 02/22/24 02/22/24 History subcutaneous pen injector ([place]) topiramate 50 mg tablet 50 mg PO BID 02/22/24 02/22/24 History Past Med/Surg History Problem List (Updated 02/22/24 @ 17:07 by Nick Lopez DO) Cholecystitis, acute Severe sepsis with acute organ dysfunction Acute on chronic renal failure Hyponatremia Hypokalemia Medical History (Updated 02/22/24 @ 17:07 by Nick Lopez DO) Borderline personality disorder Generalized anxiety disorder Hypothyroidism Chronic renal failure, stage 3a Chronic laxative abuse Eating disorder Major depressive disorder Obsessive compulsive disorder Hiatal hernia Raynauds disease Prediabetes Social History Smoking Status: Never smoker Preferred Language: [place] Feels Safe at Home: Yes Review of Systems Review of Systems: Pertinent positive and negative review of systems as mentioned in the HPI Physical Exam Physical Exam: Constitutional: Alert, ill in appearance, moderately toxic, HEENT: Mucous membranes extremely dry. Sclera clear Neck: Soft, no adenopathy Lungs: Clear to auscultation, decreased, no wheezes rales or rhonchi CV: S1-S2, regular Abdomen: Soft, right upper quadrant tenderness, positive Lema sign, no guarding rigidity or rebound Extremities: No significant edema Musculoskeletal: No significant joint tenderness Neuro: No focal deficits, moves all 4 extremities Psych: Cooperative, flat affect Results & Data Results & Data Vital Signs (Past 12 Hours) Vital Signs Temp Pulse Pulse Resp BP BP Pulse Ox 02/22/24 16:41 66 20 111/72 96 02/22/24 14:55 68 96 02/22/24 14:43 71 26 H 112/64 95 02/22/24 13:49 65 24 97 02/22/24 13:30 109/68 02/22/24 13:30 69 29 H 96 02/22/24 13:15 99/76 L 02/22/24 13:15 72 24 78 L 02/22/24 13:03 75 02/22/24 13:00 75 27 H 95 02/22/24 13:00 92/66 L 02/22/24 13:00 75 24 92/66 L 92 02/22/24 12:45 36.3 C L 125 H 18 97 O2 Del Method 02/22/24 16:41 Room Air 02/22/24 14:55 Room Air 02/22/24 14:43 02/22/24 13:49 02/22/24 13:30 02/22/24 13:30 02/22/24 13:15 02/22/24 13:15 02/22/24 13:03 02/22/24 13:00 02/22/24 13:00 02/22/24 13:00 Room Air 02/22/24 12:45 Diagnostic Findings Reviewed imaging, laboratory and diagnostic studies. Pertinent findings as below. Personally reviewed EKG, sinus rhythm no acute findings of severe hypokalemia Reviewed imaging study reports, possible cholecystitis, possible cholelithiasis, no ductal dilatation WBCs 17.3 Hemoglobin 13.6, platelets 605 Troponin 24.4 Procalcitonin 3.62 Urinalysis unremarkable Respiratory viral panel negative Stool studies pending LFTs reviewed, normal bilirubin 0.6, AST ALT and alk phos elevated Initial lactate 4.3, after fluid resuscitation 1.5
[2024-02-22 17:56] LABS: BUN Creatinine Ratio 22.4 (10-20); Calcium 8.7 mg/dl (8.6-10.3); Creatinine Clr Calc Pharmacy 44.3 ml/min; Est GFR (Non-African American) 41.4 ml/min; Potassium 2.3 mmol/L (3.5-5.1)
[2024-02-22 18:12] LABS: Adenovirus F 40/41 PCR Not Detected (NotDetected); Astrovirus PCR Not Detected (NotDetected); Campylobacter PCR Not Detected (NotDetected); Cryptosporidium PCR Not Detected (NotDetected); Cyclospora cayetanensis PCR Not Detected (NotDetected); Entamoeba histolytica PCR Not Detected (NotDetected); Enteroaggregative E.coli(EAEC) Not Detected (NotDetected); Enteropathogenic E.coli (EPEC) Not Detected (NotDetected); Enterotoxigenic E.coli (ETEC) Not Detected (NotDetected); Giardia lamblia PCR Not Detected (NotDetected); Norovirus GI/GII PCR Not Detected (NotDetected); Plesiomonas shigelloides PCR Not Detected (NotDetected); Rotavirus A PCR Not Detected (NotDetected); Sapovirus PCR Not Detected (NotDetected); Shiga-like Toxin E.coli (STEC) Not Detected (NotDetected); Shigella/Enteroinvasive E.coli Not Detected (NotDetected); Vibrio cholerae PCR Not Detected (NotDetected); Vibrio species PCR Not Detected (NotDetected); Yersinia enterocolitica PCR Not Detected (NotDetected)
[2024-02-22 18:23] LABS: Salmonella PCR DETECTED (NotDetected)
[2024-02-22] MEDS: metroNIDAZOLE 500 MG/100 ML BAG IV STA (19:20)
[2024-02-22] MEDS ORDERED: ALPRAZolam 0.5 MG TABLET PO PRN (20:39)
[2024-02-22] MEDS ORDERED: ACETAMINOPHEN 325 MG TAB PO PRN (20:39)
[2024-02-22 21:25] LABS: Thyroid Stimulating Hormone 1.621 uIu/ml (0.300-4.500)
[2024-02-22] MEDS: levoFLOXacin/D5W 500 MG/100 ML BAG IV SCH (21:28)
[2024-02-22] MEDS: POTASSIUM CHLORIDE CRTAB 20 MEQ TABCR PO SCH (21:28)
--- NOTE | 2024-02-22 21:37 | Magnetic Resonance Report ---
Exam(s): MRI MRCP EXAM: MR Abdomen Without Intravenous Contrast, MRCP Protocol CLINICAL HISTORY: Reason for exam: Cholecystitis/cholelithiasis. TECHNIQUE: Multiplanar magnetic resonance images of the abdomen without intravenous contrast using MRCP protocol. COMPARISON: 02/22/2024 CT examination. FINDINGS: Lower thorax: There is mild hiatal hernia. Bile ducts: Unremarkable. Normal common bile duct with no intrahepatic biliary distention. No bile duct stone visualized. Gallbladder: Distended gallbladder . There is layering sludge within the dependent portion of the gallbladder at the gallbladder neck with nonspecific distention of the cystic duct. There is a punctate defect within the gallbladder neck, cannot exclude very small size gallstone. There is pericholecystic fluid. Liver: Unremarkable. Pancreas: Unremarkable. Normal size of the pancreatic duct. Spleen: Unremarkable. No splenomegaly. Adrenals: Unremarkable. No mass. Kidneys and ureters: Unremarkable. No hydronephrosis. Stomach and bowel: There is diffuse distention of the colon with air- fluid levels suggestive of sequela of enteritis, malabsorption or ileus. Normal visualized small bowel with no dilatation to suggest obstruction. IMPRESSION: 1. There is pericholecystic fluid with sludge in the gallbladder neck and tiny punctate stone in the gallbladder neck junction with the cystic duct not excluded. In this context acute cholecystitis cannot be excluded with follow-up HIDA scan recommended if clinically indicated. 2. Nonspecific distention of the cystic duct near the gallbladder neck region, otherwise normal biliary system with no dilatation or bile duct stone visualized. 3. Diffuse mild distention of the colon with air-fluid level with wide differential diagnosis including sequela of enteritis, malabsorption or ileus, correlation with history of diarrheal state recommended. 4. No signs of small bowel obstruction. 5. Mild hiatal hernia. Electronically signed by: Cheyanne Rainey MD 02/22/24 21:36 PM
[2024-02-22] MEDS: TOPIRAMATE 50 MG TAB PO SCH (21:56)
[2024-02-22 23:02] LABS: Calcium 8.8 mg/dl (8.6-10.3); Potassium 2.6 mmol/L (3.5-5.1)
[2024-02-22 23:07] LABS: BUN Creatinine Ratio 21.8 (10-20); Est GFR (African American) 52.4 ml/min; Est GFR (Non-African American) 45.2 ml/min
[2024-02-23 07:45] LABS: Hematocrit (blood only) 34.4 % (37.0-47.0); Hemoglobin 10.7 g/dl (12.0-16.0); Mean Corpuscular Hgb Conc 31.1 g/dL (32.0-36.0); Mean Corpuscular Volume 73.8 fL (80.0-100.0); Mean Platelet Volume 11.1 fL (9.4-12.4); Platelet Count 441 K/uL (130-400); RDW Coefficient of Variation 18.6 % (11.5-14.5); Red Blood Count 4.66 M/uL (4.20-5.40); White Blood Count 16.62 K/ul (4.8-10.8)
[2024-02-23] MEDS: LEVOTHYROXINE SODIUM 88 MCG TABLET PO SCH (08:12)
[2024-02-23] MEDS: LURASIDONE HCL 20 MG TAB PO SCH (08:12)
[2024-02-23] MEDS: buPROPion XL 300 MG TABCR PO SCH (08:12)
[2024-02-23 08:14] LABS: Albumin Globulin Ratio 1.2 (0.9-2); Albumin Level 2.9 gm/dl (3.4-5.0); BUN Creatinine Ratio 21.3 (10-20); Bilirubin,Total 0.4 mg/dl (0.2-1.0); Calcium 9.2 mg/dl (8.6-10.3); Creatinine Clr Calc Pharmacy 59.3 ml/min; Est GFR (African American) 67.4 ml/min; Est GFR (Non-African American) 58.2 ml/min; Globulin 2.5 gm/dl (2.5-4.0); Magnesium 2.1 mg/dl (1.7-2.4); Potassium 3.2 mmol/L (3.5-5.1); Total Protein 5.4 gm/dl (6.0-8.3)
[2024-02-23] MEDS ORDERED: LURASIDONE HCL 20 MG TAB PO SCH (09:00)
[2024-02-23] MEDS ORDERED: LURASIDONE 120 MG PO SCH (09:00)
[2024-02-23 09:40] LABS: Basophils # (auto) 0.04 K/uL (0.00-0.20); Basophils % (auto) 0.2 %; Eosinophils # (auto) 0.04 K/uL (0.00-0.50); Eosinophils % (auto) 0.2 %; Hematocrit (blood only) 31.9 % (37.0-47.0); Hemoglobin 9.9 g/dl (12.0-16.0); Immature Granulocytes # (auto) 0.42 K/uL (0.01-0.20); Immature Granulocytes % (auto) 2.6 %; Lymphocytes # (auto) 0.89 K/uL (1.20-3.40); Lymphocytes % (auto) 5.6 %; Mean Corpuscular Hemoglobin 22.8 pg (25.0-34.0); Mean Corpuscular Volume 73.5 fL (80.0-100.0); Mean Platelet Volume 10.8 fL (9.4-12.4); Monocytes % (auto) 4.4 %; Neutrophils # (auto) 13.94 K/uL (1.40-6.50); Platelet Count 416 K/uL (130-400); RDW Coefficient of Variation 18.6 % (11.5-14.5); RDW Standard Deviation 49.5 fL (36.4-46.3); Red Blood Count 4.34 M/uL (4.20-5.40); White Blood Count 16.03 K/ul (4.8-10.8)
[2024-02-23 09:48] LABS: Calcium 8.9 mg/dl (8.6-10.3); Creatinine Clr Calc Pharmacy 58.2 ml/min; Est GFR (African American) 65.9 ml/min; Est GFR (Non-African American) 56.9 ml/min; Potassium 2.7 mmol/L (3.5-5.1)
[2024-02-23] MEDS: NSS + 20MEQ KCL 20 MEQ/1,000 ML BAG IV SCH (10:17)
[2024-02-23] MEDS: POT PHOSPHATE MONOBASIC W/ SOD TAB PO SCH (10:17)
[2024-02-23] MEDS: POTASSIUM CHLORIDE CRTAB 20 MEQ TABCR PO STA ×2 (10:23→17:42)
[2024-02-23 11:30] LABS: A calco-baum cmplx NotReported Not Detected (NotDetected); Bact fragilis Not Reported Not Detected (NotDetected); Blood Culture Id Panel See PCR Comment (NotDetected); C auris Not Reported Not Detected (NotDetected); CTX-M Resistant Gene Not Detected (NotDetected); Calbicans Not Reported Not Detected (NotDetected); Candida glabrata Not Reported Not Detected (NotDetected); Candida krusei Not Reported Not Detected (NotDetected); Cneoformans/gatti Not Reported Not Detected (NotDetected); Cparapsilosis Not Reported Not Detected (NotDetected); E cloacae compx Not Reported Not Detected (NotDetected); Efaecalis Not Reported Not Detected (NotDetected); Efaecium Not Reported Not Detected (NotDetected); Enterobacterales DETECTED (NotDetected); Enterobacterales Not Reported DETECTED (NotDetected); Escherichia coli Not Reported Not Detected (NotDetected); H influenzae Not Reported Not Detected (NotDetected); IMP Resistant Gene Not Detected (NotDetected); K aerogenes Not Reported Not Detected (NotDetected); KPC Resistant Gene Not Detected (NotDetected); Koxytoca Not Reported Not Detected (NotDetected); Kpneumoniae grp Not Reported Not Detected (NotDetected); Lmonocyt Not Reported Not Detected (NotDetected); N meningitidis Not Reported Not Detected (NotDetected); NDM Resistant Gene Not Detected (NotDetected); OXA 48 Like Resistant Gene Not Detected (NotDetected); P aeruginosa Not Reported Not Detected (NotDetected); Proteus spp Not Reported Not Detected (NotDetected); Salmonella spp Not Reported DETECTED (NotDetected); Smarcescens Not Reported Not Detected (NotDetected); Staph lugdunensis Not Reported Not Detected (NotDetected); Staph spp. Not Reported Not Detected (NotDetected); Staphaureus Not Reported Not Detected (NotDetected); Staphepi Not Reported Not Detected (NotDetected); Stenmaltophilia Not Reported Not Detected (NotDetected); Strep agal(GrpB) Not Reported Not Detected (NotDetected); Strep pneum Not Reported Not Detected (NotDetected); Strep pyog (GrpA) Not Reported Not Detected (NotDetected); Strep spp Not Reported Not Detected (NotDetected); VIM Resistant Gene Not Detected (NotDetected); mcr-1 Colistin Resistant Gene Not Detected (NotDetected)
[2024-02-23 11:41] LABS: Salmonella species DETECTED (NotDetected)
--- NOTE | 2024-02-23 12:08 | Surgery Consultation ---
Date of Consultation February 23, 2024 Assessment & Plan (1) Colitis due to Salmonella species: (2) Cholecystitis, acute: (3) Severe sepsis with acute organ dysfunction: Plan 54 year-old female with 1 week history of diarrhea with nausea and dehydration found to have possible acute cholecystitis on imaging. Leukocytosis with elevated lfts, and alk phos. CT scan and ultrasound showing distended gallbladder with cholelithiasis and pericholecystic fluid. MRCP with pericholecystic fluid and possible small stone in gallbladder neck in which acute cholecystitis cannot be excluded. Stool positive for salmonella. HIDA scan negative for acute cholecystitis. No abdominal pain on examination. Plan: No indication for cholecystectomy at this time. Pericholecystic fluid likely secondary to the colitis due to salmonella infection. Would trend LFTS and wbc. Continue Antibiotics. Continue medical management Dr. Caruso has seen and examined patient, see addendum for further recommendations/plan. Supervising Physician Co-Signing Physician Notes I have seen and examined the patient personally and agree with the above assessment and plan. In brief she is a 54-year-old with a 7-day history of diarrhea with nausea and dehydration. Imaging noted possible acute cholecystitis. HIDA scan was negative for acute cholecystitis. Her stool was positive for Salmonella. I would not recommend removing the gallbladder given the HIDA results. She should be treated for her Salmonella disease. We will sign off. Please call with any questions or concerns. History of Present Illness Reason for Consultation: Possible Acute Cholecystitis Requesting Physician: Alon Haines MD Attending Physician: Alon Haines MD History of Present Illness Silvia is a 54 year old female with history hypothyroidism, borderline personality disorder, prediabetes, raynauds disease, easting disorder, OCD, major depressive disorder presented to ED with multiple diarrheal stools in last week with nausea, decreased appetite, and concern for dehydration. She was found to have mutliple electrolyte abnormalities in the ED as well as possible acute cholecystitis on imaging with elevated leukocytosis and elevated LFTS. Ultrasound showing distended gallbladder with small stones and gallbladder wall thickening , MRCP showing possible acute cholecystitis. Awaiting HIDA scan. Stool tested positive for Salmonella. HIDA scan negative for cystic duct obstruction. She states she is feeling okay. No abdominal pain, n, v. No fevers or chills. Allergies Allergy/AdvReac Type Severity Reaction Status Date / Time No Known Allergies Allergy Verified 03/16/11 11:05 Home Medications Medication Instructions Recorded Confirmed Type alprazolam 0.5 mg tablet 0.5 mg PO TID PRN Anxiety 02/22/24 02/22/24 History bupropion HCl 300 mg 24 hr tablet, 300 mg PO QAM 02/22/24 02/22/24 History extended release clomipramine 75 mg capsule 150 mg PO QPM 02/22/24 02/22/24 History levothyroxine 88 mcg tablet 88 mcg PO DAILY 02/22/24 02/22/24 History lisdexamfetamine 70 mg capsule 70 mg PO QAM 02/22/24 02/22/24 History lithium carbonate 300 mg tablet 900 mg PO QPM 02/22/24 02/22/24 History lurasidone 120 mg tablet 120 mg PO DAILY 02/22/24 02/22/24 History lurasidone 20 mg tablet 20 mg PO DAILY 02/22/24 02/22/24 History tirzepatide 5 mg/0.5 mL 5 mg subcut WK 02/22/24 02/22/24 History subcutaneous pen injector (Darby) topiramate 50 mg tablet 50 mg PO BID 02/22/24 02/22/24 History Patient History Medical History (Updated 02/22/24 @ 18:28 by Nick Lopez DO) Borderline personality disorder Generalized anxiety disorder Hypothyroidism Chronic renal failure, stage 3a Chronic laxative abuse Eating disorder Major depressive disorder Obsessive compulsive disorder Hiatal hernia Raynauds disease Prediabetes Social History Smoking Status: Never smoker Second Hand Exposure: No; Do You Dip or Chew Tobacco: No; Hx Alcohol Use: No Hx Substance Use: No Preferred Language: Romansh Communication Ability: Effective Water Trainer Required: No Beliefs That Will Affect Care: None Current Living Situation: Spouse Other Information That Helps Us Care for You: No Feels Safe at Home: Yes Safety Concerns: Feels Safe At This Time Assistive Devices: None Review of Systems Review of Systems: All systems reviewed & are unremarkable except as noted in HPI & below Physical Exam Constitutional: WD/WN, vitals as above cooperative and comfortable; no acute distress and not ill appearing Respiratory: normal respiratory effort, lungs clear to auscultation Cardiovascular: RRR, no murmur, no edema Gastrointestinal (Abdomen): Inspection/Auscultation: abdomen normal to inspection; abdomen not distended Percussion/Palpation: abdomen soft; abdomen nontender, no guarding, abdomen not rigid and abdomen not firm Skin: no rashes, warm and dry no jaundice Results & Data Vital Signs (Past 12 Hours) Vital Signs Temp Pulse Pulse Resp BP Pulse Ox O2 Del Method 02/23/24 11:12 36.4 C L 60 16 96/60 L 98 Room Air 02/23/24 07:14 36.5 C 61 18 98/60 L 98 Room Air 02/23/24 03:05 36.5 C 68 16 133/79 98 Room Air 02/23/24 01:57 62 Laboratory Results 02/23/24 02/23/24 02/22/24 Range/Units 09:11 07:05 22:34 WBC 16.03 H 16.62 H (4.8-10.8) K/ul RBC 4.34 4.66 (4.20-5.40) M/uL Hgb 9.9 L 10.7 L D (12.0-16.0) g/dl POC Hgb (12.0-16.0) g/dl Hct 31.9 L 34.4 L (37.0-47.0) % POC Hct (37-47) % MCV 73.5 L 73.8 L (80.0-100.0) fL MCH 22.8 L 23.0 L (25.0-34.0) pg MCHC 31.0 L 31.1 L (32.0-36.0) g/dL RDW Std Deviation 49.5 H 49.0 H (36.4-46.3) fL RDW Coeff of Celestina 18.6 H 18.6 H (11.5-14.5) % Plt Count 416 H 441 H (130-400) K/uL MPV 10.8 11.1 (9.4-12.4) fL Immature Gran % (Auto) 2.6 % Neut % (Auto) 87.0 % Lymph % (Auto) 5.6 % [place] % (Auto) 4.4 % Eos % (Auto) 0.2 % Baso % (Auto) 0.2 % Neut # (Auto) 13.94 H (1.40-6.50) K/uL Lymph # (Auto) 0.89 L (1.20-3.40) K/uL [place] # (Auto) 0.70 H (0.11-0.59) K/uL Eos # (Auto) 0.04 (0.00-0.50) K/uL Baso # (Auto) 0.04 (0.00-0.20) K/uL Immature Gran # (Auto) 0.42 H (0.01-0.20) K/uL PT (9.0-12.0) Seconds INR (0.9-1.1) POC Sodium (135-144) mmol/L Sodium 131 L 131 L 126 L (136-145) mmol/L POC Potassium (3.3-5.0) mmol/L Potassium 2.7 L 3.2 L D 2.6 L (3.5-5.1) mmol/L POC Chloride (101-112) mmol/L Chloride 102 102 98 (98-107) mmol/L Carbon Dioxide 21 21 19 L (21-32) mmol/L POC Total CO2 (24-31) mmol/L Anion Gap 8 8 9 (3-11) POC Anion Gap (16-25) mmol/L POC BUN (7-18) mg/dl BUN 22 23 29 H (6-23) mg/dl Creatinine 1.10 1.08 1.33 H (0.6-1.2) mg/dl POC Creatinine (0.6-1.3) mg/dl Est Cr Clr Drug Dosing 58.2 59.3 48.0 ml/min Est GFR ( Amer) 65.9 67.4 52.4 ml/min Est GFR (Non-Af Amer) 56.9 58.2 45.2 ml/min BUN/Creatinine Ratio 20.0 21.3 H 21.8 H (10-20) Glucose 84 84 96 (70-99(Fasting)) mg/dl POC Glucose (other) (70-99) mg/dl Lactate (0.4-2.0) mmol/L Calcium 8.9 9.2 8.8 (8.6-10.3) mg/dl POC Ioniz Calcium Gilma (1.12-1.32) mmol/l Phosphorus 2.0 L (2.5-4.9) mg/dl Magnesium 2.1 (1.7-2.4) mg/dl Total Bilirubin 0.4 (0.2-1.0) mg/dl AST 180 H (13-39) U/L ALT 281 H (7-52) U/L Alkaline Phosphatase 112 H (34-104) U/L Troponin I High Sens (0-14) pg/ml Total Protein 5.4 L D (6.0-8.3) gm/dl Albumin 2.9 L (3.4-5.0) gm/dl Globulin 2.5 (2.5-4.0) gm/dl Albumin/Globulin Ratio 1.2 (0.9-2) Lipase (11-82) U/L Procalcitonin 5.48 H (0-0.5) ng/ml TSH (0.300-4.500) uIu/ml Urine Color Urine Appearance (Clear) Urine pH (4.5-7.5) Ur Specific [place] (1.000-1.030) Urine Protein (Negative) Urine Glucose (UA) (Negative) Urine Ketones (Negative) Urine Blood (Negative) Urine Nitrite (Negative) Urine Bilirubin (Negative) Urine Urobilinogen (Negative) Ur Leukocyte Esterase (Negative) Urine WBC (Auto) (0-5) /hpf Urine RBC (Auto) (0-2) /hpf U Hyaline Cast (Auto) (0-2) /lpf U Epithel Cells (Auto) (0-2) /hpf Urine Bacteria (Auto) (None Seen) Stl C. cayetanensis PCR (NotDetected) Stool Rotavirus A PCR (NotDetected) Stl Adenov F 40/41 PCR (NotDetected) Stool Astrovirus (PCR) (NotDetected) Stool Campylobacter PCR (NotDetected) Stl C. diff Tox B Gene (Neg) Stool Cryptosporidium PCR (NotDetected) Stl E.coli Shiga Tox PCR (NotDetected) Stl Enterotoxigenic E PCR (NotDetected) Stool EPEC (PCR) (NotDetected) Stool EAEC (PCR) (NotDetected) Stl E. histolytica PCR (NotDetected) Stool Giardia Lamblia PCR (NotDetected) Stool Salmonella PCR (NotDetected) Stool Sapovirus (PCR) (NotDetected) Stl P. shigelloides PCR (NotDetected) Stl Shigella/EIEC PCR (NotDetected) St Y.enterocolitica PCR (NotDetected) Stool Vibrio (PCR) (NotDetected) Stl Vibrio cholerae PCR (NotDetected) Stl Norovirus GI/GII PCR (NotDetected) [place] 1.2 (0.6-1.2) mmol/L Adenovirus (PCR) (NotDetected) B. pertussis DNA (PCR) (NotDetected) B.parapertussis DNA PCR (NotDetected) C. pneumoniae DNA (PCR) (NotDetected) Coronavirus OC43 (PCR) (NotDetected) Coronavirus HKU1 (PCR) (NotDetected) Coronavirus 229E (PCR) (NotDetected) SARS-CoV-2 (PCR) (NotDetected) Coronavirus NL63 (PCR) (NotDetected) Enterobacterales (PCR) (NotDetected) Human Metapneumovir PCR (NotDetected) Influenza Type A (PCR) (NotDetected) Influenza Type B (PCR) (NotDetected) M. pneumoniae (PCR) (NotDetected) Parainfluenza 1 (PCR) (NotDetected) Parainfluenza 2 (PCR) (NotDetected) Parainfluenza 3 (PCR) (NotDetected) Parainfluenza 4 (PCR) (NotDetected) RSV (PCR) (NotDetected) Entero/Rhino (PCR) (NotDetected) Salmonella spp. (PCR) (NotDetected) mcr-1 Colistin Res Gene PCR (NotDetected) blaIMP Car res Gene PCR (NotDetected) KPC-Carbap Res Gene PCR (NotDetected) blaNDM Car Res Gene PCR (NotDetected) OXA-48 Carbapenem Resis Gene (PCR) (NotDetected) blaVIM Car Res Gene PCR (NotDetected) CTX-M Gene Resistance (PCR) (NotDetected) Bld Cult ID Panel PCR (NotDetected) Miscellaneous Test 02/22/24 02/22/24 02/22/24 Range/Units 17:13 16:37 14:59 WBC (4.8-10.8) K/ul RBC (4.20-5.40) M/uL Hgb (12.0-16.0) g/dl POC Hgb (12.0-16.0) g/dl Hct (37.0-47.0) % POC Hct (37-47) % MCV (80.0-100.0) fL MCH (25.0-34.0) pg MCHC (32.0-36.0) g/dL RDW Std Deviation (36.4-46.3) fL RDW Coeff of Celestina (11.5-14.5) % Plt Count (130-400) K/uL MPV (9.4-12.4) fL Immature Gran % (Auto) % Neut % (Auto) % Lymph % (Auto) % [place] % (Auto) % Eos % (Auto) % Baso % (Auto) % Neut # (Auto) (1.40-6.50) K/uL Lymph # (Auto) (1.20-3.40) K/uL [place] # (Auto) (0.11-0.59) K/uL Eos # (Auto) (0.00-0.50) K/uL Baso # (Auto) (0.00-0.20) K/uL Immature Gran # (Auto) (0.01-0.20) K/uL PT (9.0-12.0) Seconds INR (0.9-1.1) POC Sodium (135-144) mmol/L Sodium 126 L (136-145) mmol/L POC Potassium (3.3-5.0) mmol/L Potassium 2.3 L* (3.5-5.1) mmol/L POC Chloride (101-112) mmol/L Chloride 96 L (98-107) mmol/L Carbon Dioxide 22 (21-32) mmol/L POC Total CO2 (24-31) mmol/L Anion Gap 8 (3-11) POC Anion Gap (16-25) mmol/L POC BUN (7-18) mg/dl BUN 32 H (6-23) mg/dl Creatinine 1.43 H D (0.6-1.2) mg/dl POC Creatinine (0.6-1.3) mg/dl Est Cr Clr Drug Dosing 44.3 ml/min Est GFR ( Amer) 48.0 ml/min Est GFR (Non-Af Amer) 41.4 ml/min BUN/Creatinine Ratio 22.4 H (10-20) Glucose 126 H (70-99(Fasting)) mg/dl POC Glucose (other) (70-99) mg/dl Lactate 1.5 (0.4-2.0) mmol/L Calcium 8.7 (8.6-10.3) mg/dl POC Ioniz Calcium Gilma (1.12-1.32) mmol/l Phosphorus (2.5-4.9) mg/dl Magnesium 2.0 (1.7-2.4) mg/dl Total Bilirubin (0.2-1.0) mg/dl AST (13-39) U/L ALT (7-52) U/L Alkaline Phosphatase (34-104) U/L Troponin I High Sens 24.3 H (0-14) pg/ml Total Protein (6.0-8.3) gm/dl Albumin (3.4-5.0) gm/dl Globulin (2.5-4.0) gm/dl Albumin/Globulin Ratio (0.9-2) Lipase (11-82) U/L Procalcitonin (0-0.5) ng/ml TSH 1.621 (0.300-4.500) uIu/ml Urine Color Yellow Urine Appearance Clear (Clear) Urine pH 6.5 (4.5-7.5) Ur Specific [place] 1.033 H (1.000-1.030) Urine Protein Negative (Negative) Urine Glucose (UA) Negative (Negative) Urine Ketones Trace H (Negative) Urine Blood Negative (Negative) Urine Nitrite Negative (Negative) Urine Bilirubin Negative (Negative) Urine Urobilinogen Negative (Negative) Ur Leukocyte Esterase 2+ H (Negative) Urine WBC (Auto) 21-50 H (0-5) /hpf Urine RBC (Auto) 0-2 (0-2) /hpf U Hyaline Cast (Auto) 0-2 (0-2) /lpf U Epithel Cells (Auto) 3-5 H (0-2) /hpf Urine Bacteria (Auto) 1+ H (None Seen) Stl C. cayetanensis PCR Not Detected (NotDetected) Stool Rotavirus A PCR Not Detected (NotDetected) Stl Adenov F 40/41 PCR Not Detected (NotDetected) Stool Astrovirus (PCR) Not Detected (NotDetected) Stool Campylobacter PCR Not Detected (NotDetected) Stl C. diff Tox B Gene Negative Cdiff Gene (Neg) Stool Cryptosporidium PCR Not Detected (NotDetected) Stl E.coli Shiga Tox PCR Not Detected (NotDetected) Stl Enterotoxigenic E PCR Not Detected (NotDetected) Stool EPEC (PCR) Not Detected (NotDetected) Stool EAEC (PCR) Not Detected (NotDetected) Stl E. histolytica PCR Not Detected (NotDetected) Stool Giardia Lamblia PCR Not Detected (NotDetected) Stool Salmonella PCR DETECTED A* (NotDetected) Stool Sapovirus (PCR) Not Detected (NotDetected) Stl P. shigelloides PCR Not Detected (NotDetected) Stl Shigella/EIEC PCR Not Detected (NotDetected) St Y.enterocolitica PCR Not Detected (NotDetected) Stool Vibrio (PCR) Not Detected (NotDetected) Stl Vibrio cholerae PCR Not Detected (NotDetected) Stl Norovirus GI/GII PCR Not Detected (NotDetected) [place] 1.5 H (0.6-1.2) mmol/L Adenovirus (PCR) (NotDetected) B. pertussis DNA (PCR) (NotDetected) B.parapertussis DNA PCR (NotDetected) C. pneumoniae DNA (PCR) (NotDetected) Coronavirus OC43 (PCR) (NotDetected) Coronavirus HKU1 (PCR) (NotDetected) Coronavirus 229E (PCR) (NotDetected) SARS-CoV-2 (PCR) (NotDetected) Coronavirus NL63 (PCR) (NotDetected) Enterobacterales (PCR) (NotDetected) Human Metapneumovir PCR (NotDetected) Influenza Type A (PCR) (NotDetected) Influenza Type B (PCR) (NotDetected) M. pneumoniae (PCR) (NotDetected) Parainfluenza 1 (PCR) (NotDetected) Parainfluenza 2 (PCR) (NotDetected) Parainfluenza 3 (PCR) (NotDetected) Parainfluenza 4 (PCR) (NotDetected) RSV (PCR) (NotDetected) Entero/Rhino (PCR) (NotDetected) Salmonella spp. (PCR) (NotDetected) mcr-1 Colistin Res Gene PCR (NotDetected) blaIMP Car res Gene PCR (NotDetected) KPC-Carbap Res Gene PCR (NotDetected) blaNDM Car Res Gene PCR (NotDetected) OXA-48 Carbapenem Resis Gene (PCR) (NotDetected) blaVIM Car Res Gene PCR (NotDetected) CTX-M Gene Resistance (PCR) (NotDetected) Bld Cult ID Panel PCR (NotDetected) Miscellaneous Test Pending 02/22/24 02/22/24 02/22/24 Range/Units 13:56 13:08 13:05 WBC 17.31 H (4.8-10.8) K/ul RBC 5.83 H (4.20-5.40) M/uL Hgb 13.6 (12.0-16.0) g/dl POC Hgb 16.3 H (12.0-16.0) g/dl Hct 42.7 (37.0-47.0) % POC Hct 48 H (37-47) % MCV 73.2 L (80.0-100.0) fL MCH 23.3 L (25.0-34.0) pg MCHC 31.9 L (32.0-36.0) g/dL RDW Std Deviation 47.5 H (36.4-46.3) fL RDW Coeff of Celestina 19.1 H (11.5-14.5) % Plt Count 605 H (130-400) K/uL MPV 10.9 (9.4-12.4) fL Immature Gran % (Auto) 2.5 % Neut % (Auto) 87.1 % Lymph % (Auto) 6.0 % [place] % (Auto) 3.6 % Eos % (Auto) 0.3 % Baso % (Auto) 0.5 % Neut # (Auto) 15.08 H (1.40-6.50) K/uL Lymph # (Auto) 1.03 L (1.20-3.40) K/uL [place] # (Auto) 0.62 H (0.11-0.59) K/uL Eos # (Auto) 0.06 (0.00-0.50) K/uL Baso # (Auto) 0.08 (0.00-0.20) K/uL Immature Gran # (Auto) 0.44 H (0.01-0.20) K/uL PT 12.1 H (9.0-12.0) Seconds INR 1.1 (0.9-1.1) POC Sodium 125 L (135-144) mmol/L Sodium 125 L (136-145) mmol/L POC Potassium 2.2 L* (3.3-5.0) mmol/L Potassium 2.4 L* (3.5-5.1) mmol/L POC Chloride 89 L (101-112) mmol/L Chloride 87 L (98-107) mmol/L Carbon Dioxide 22 (21-32) mmol/L POC Total CO2 21 L (24-31) mmol/L Anion Gap 16 H (3-11) POC Anion Gap 18.0 (16-25) mmol/L POC BUN 34 H (7-18) mg/dl BUN 33 H (6-23) mg/dl Creatinine 1.77 H (0.6-1.2) mg/dl POC Creatinine 2.0 H (0.6-1.3) mg/dl Est Cr Clr Drug Dosing 35.8 ml/min Est GFR ( Amer) 37.1 ml/min Est GFR (Non-Af Amer) 32.0 ml/min BUN/Creatinine Ratio 18.6 (10-20) Glucose 118 H (70-99(Fasting)) mg/dl POC Glucose (other) 122 H (70-99) mg/dl Lactate 4.3 H* (0.4-2.0) mmol/L Calcium 10.5 H (8.6-10.3) mg/dl POC Ioniz Calcium Gilma 1.24 (1.12-1.32) mmol/l Phosphorus (2.5-4.9) mg/dl Magnesium (1.7-2.4) mg/dl Total Bilirubin 0.6 (0.2-1.0) mg/dl AST 209 H (13-39) U/L ALT 330 H (7-52) U/L Alkaline Phosphatase 122 H (34-104) U/L Troponin I High Sens 29.0 H (0-14) pg/ml Total Protein 7.5 (6.0-8.3) gm/dl Albumin 3.9 (3.4-5.0) gm/dl Globulin 3.6 (2.5-4.0) gm/dl Albumin/Globulin Ratio 1.1 (0.9-2) Lipase 31 (11-82) U/L Procalcitonin 3.62 H (0-0.5) ng/ml TSH (0.300-4.500) uIu/ml Urine Color Urine Appearance (Clear) Urine pH (4.5-7.5) Ur Specific [place] (1.000-1.030) Urine Protein (Negative) Urine Glucose (UA) (Negative) Urine Ketones (Negative) Urine Blood (Negative) Urine Nitrite (Negative) Urine Bilirubin (Negative) Urine Urobilinogen (Negative) Ur Leukocyte Esterase (Negative) Urine WBC (Auto) (0-5) /hpf Urine RBC (Auto) (0-2) /hpf U Hyaline Cast (Auto) (0-2) /lpf U Epithel Cells (Auto) (0-2) /hpf Urine Bacteria (Auto) (None Seen) Stl C. cayetanensis PCR (NotDetected) Stool Rotavirus A PCR (NotDetected) Stl Adenov F 40/41 PCR (NotDetected) Stool Astrovirus (PCR) (NotDetected) Stool Campylobacter PCR (NotDetected) Stl C. diff Tox B Gene (Neg) Stool Cryptosporidium PCR (NotDetected) Stl E.coli Shiga Tox PCR (NotDetected) Stl Enterotoxigenic E PCR (NotDetected) Stool EPEC (PCR) (NotDetected) Stool EAEC (PCR) (NotDetected) Stl E. histolytica PCR (NotDetected) Stool Giardia Lamblia PCR (NotDetected) Stool Salmonella PCR (NotDetected) Stool Sapovirus (PCR) (NotDetected) Stl P. shigelloides PCR (NotDetected) Stl Shigella/EIEC PCR (NotDetected) St Y.enterocolitica PCR (NotDetected) Stool Vibrio (PCR) (NotDetected) Stl Vibrio cholerae PCR (NotDetected) Stl Norovirus GI/GII PCR (NotDetected) [place] (0.6-1.2) mmol/L Adenovirus (PCR) Not Detected (NotDetected) B. pertussis DNA (PCR) Not Detected (NotDetected) B.parapertussis DNA PCR Not Detected (NotDetected) C. pneumoniae DNA (PCR) Not Detected (NotDetected) Coronavirus OC43 (PCR) Not Detected (NotDetected) Coronavirus HKU1 (PCR) Not Detected (NotDetected) Coronavirus 229E (PCR) Not Detected (NotDetected) SARS-CoV-2 (PCR) Not Detected (NotDetected) Coronavirus NL63 (PCR) Not Detected (NotDetected) Enterobacterales (PCR) DETECTED A (NotDetected) Human Metapneumovir PCR Not Detected (NotDetected) Influenza Type A (PCR) Not Detected (NotDetected) Influenza Type B (PCR) Not Detected (NotDetected) M. pneumoniae (PCR) Not Detected (NotDetected) Parainfluenza 1 (PCR) Not Detected (NotDetected) Parainfluenza 2 (PCR) Not Detected (NotDetected) Parainfluenza 3 (PCR) Not Detected (NotDetected) Parainfluenza 4 (PCR) Not Detected (NotDetected) RSV (PCR) Not Detected (NotDetected) Entero/Rhino (PCR) Not Detected (NotDetected) Salmonella spp. (PCR) DETECTED A (NotDetected) mcr-1 Colistin Res Gene PCR Not Detected (NotDetected) blaIMP Car res Gene PCR Not Detected (NotDetected) KPC-Carbap Res Gene PCR Not Detected (NotDetected) blaNDM Car Res Gene PCR Not Detected (NotDetected) OXA-48 Carbapenem Resis Gene (PCR) Not Detected (NotDetected) blaVIM Car Res Gene PCR Not Detected (NotDetected) CTX-M Gene Resistance (PCR) Not Detected (NotDetected) Bld Cult ID Panel PCR See PCR Comment (NotDetected) Miscellaneous Test Diagnostic Findings ABDOMEN AND PELVIS CT WITH IV CONTRAST CT DOSE: 1814.03 mGy.cm HISTORY: Acute nodule and vomiting with generalized abdominal pain N/V/D, abd pain TECHNIQUE: Multiaxial CT images of the abdomen and pelvis were performed following the IV administration of 92 cc of Optiray, A dose lowering technique was utilized adhering to the principles of ALARA. COMPARISON STUDY: None. FINDINGS: Bibasilar patchy groundglass nodular densities with mild patchy right middle lobe consolidation. No free air. Unremarkable spleen, pancreas and adrenal glands. Distended gallbladder with wall thickening and pericholecystic fluid. Patent portal vein. Focal fatty infiltration of the left hepatic lobe adjacent to the falciform ligament. Scattered bilateral nonobstructing renal calculi measuring up to approximately 4 mm. No ureteral calculi or hydronephrosis. Urinary bladder wall thickening with partial distention. Unremarkable uterus. Mild atherosclerosis of the abdominal aorta. No lymphadenopathy. Distended fluid-filled distal esophagus. Moderate-sized hiatal hernia. Air and fluid filled large and small bowel. Normal appendix. No acute fracture. No destructive bone lesions identified. IMPRESSION: 1. Air and fluid filled large and small bowel loops suggestive of a nonspecific enteritis/diarrheal illness. 2. Distended gallbladder with wall thickening could be correlated with ultrasou nd to exclude acute cholecystitis. 3. Normal appendix. 4. Moderate-sized hiatal hernia. 5. Nonobstructing bilateral nephrolithiasis. No hydronephrosis. ABDOMINAL ULTRASOUND, RIGHT UPPER QUADRANT HISTORY: Acute nausea with vomiting N/V. COMPARISON: CT of same day FINDINGS: Pancreas: The pancreas demonstrates a normal echotexture. Liver: Unremarkable. Gallbladder: Distended gallbladder with tiny probable gallstones and biliary sludge. The bladder wall is thickened, 3 mm. Pericholecystic fluid. Negative sonographic Lema's sign. CBD: 0.4 cm. Right kidney: No hydronephrosis. IMPRESSION: 1. Distended gallbladder with cholelithiasis, wall thickening and pericholecystic fluid. Negative sonographic Lema's sign. Findings are suspicious for acute cholecystitis. 2. No biliary ductal dilation. Exam(s): MRI MRCP EXAM: MR Abdomen Without Intravenous Contrast, MRCP Protocol CLINICAL HISTORY: Reason for exam: Cholecystitis/cholelithiasis. TECHNIQUE: Multiplanar magnetic resonance images of the abdomen without intravenous contrast using MRCP protocol. COMPARISON: 02/22/2024 CT examination. FINDINGS: Lower thorax: There is mild hiatal hernia. Bile ducts: Unremarkable. Normal common bile duct with no intrahepatic biliary distention. No bile duct stone visualized. Gallbladder: Distended gallbladder . There is layering sludge within the dependent portion of the gallbladder at the gallbladder neck with nonspecific distention of the cystic duct. There is a punctate defect within the gallbladder neck, cannot exclude very small size gallstone. There is pericholecystic fluid. Liver: Unremarkable. Pancreas: Unremarkable. Normal size of the pancreatic duct. Spleen: Unremarkable. No splenomegaly. Adrenals: Unremarkable. No mass. Kidneys and ureters: Unremarkable. No hydronephrosis. Stomach and bowel: There is diffuse distention of the colon with air- fluid levels suggestive of sequela of enteritis, malabsorption or ileus. Normal visualized small bowel with no dilatation to suggest obstruction. IMPRESSION: 1. There is pericholecystic fluid with sludge in the gallbladder neck and tiny punctate stone in the gallbladder neck junction with the cystic duct not excluded. In this context acute cholecystitis cannot be excluded with follow-up HIDA scan recommended if clinically indicated. 2. Nonspecific distention of the cystic duct near the gallbladder neck region, otherwise normal biliary system with no dilatation or bile duct stone visualized. 3. Diffuse mild distention of the colon with air-fluid level with wide differential diagnosis including sequela of enteritis, malabsorption or ileus, correlation with history of diarrheal state recommended. 4. No signs of small bowel obstruction. 5. Mild hiatal hernia. NUCLEAR MEDICINE HEPATOBILIARY SCAN CLINICAL HISTORY: Distended gallbladder. Cholelithiasis. Possible cholecystitis. COMPARISON: CT of the abdomen and pelvis, right upper quadrant ultrasound and MRCP February 22, 2024. TECHNIQUE: 5.1 mCi of technetium 99m Choletec IV was injected at 11:51 AM on February 23, 2024. Immediately following injection, imaging of the abdomen was carried out for 60 minutes in the anterior projection. FINDINGS: Hepatic uptake of radiotracer is prompt and homogeneous. Activity is identified within the gallbladder at 20 minutes. Common bile duct activity is noted at 15 minutes. Small bowel activity is noted at 15 minutes. IMPRESSION: No scintigraphic evidence for acute cholecystitis.
--- NOTE | 2024-02-23 12:56 | Electrocardiogram Report ---
Test Reason : Blood Pressure : / mmHG Vent. Rate : 061 BPM Atrial Rate : 061 BPM P-R Int : 166 ms QRS Dur : 102 ms QT Int : 564 ms P-R-T Axes : 018 005 170 degrees QTc Int : 567 ms Normal sinus rhythm Left ventricular hypertrophy with repolarization abnormality Abnormal ECG When compared with ECG of 22-FEB-2024 12:58, T wave inversion more evident in Lateral leads Confirmed by Nelson Perez ([id number]) on 02/23/2024 12:56:32 PM Referred By: REFERRED SELF Confirmed By:Nelson Perez
--- NOTE | 2024-02-23 13:05 | Nuclear Medicine Report ---
NUCLEAR MEDICINE HEPATOBILIARY SCAN CLINICAL HISTORY: Distended gallbladder. Cholelithiasis. Possible cholecystitis. COMPARISON: CT of the abdomen and pelvis, right upper quadrant ultrasound and MRCP February 22, 2024. TECHNIQUE: 5.1 mCi of technetium 99m Choletec IV was injected at 11:51 AM on February 23, 2024. Immediat trevor following injection, imaging of the abdomen was carried out for 60 minutes in the anterior projec tion. FINDINGS: Hepatic uptake of radiotracer is prompt and homogeneous. Activity is identified within the gallbladder at 20 minutes. Common bile duct activity is noted at 15 minutes. Small bowel activity is noted at 15 minutes. IMPRESSION: No scintigraphic evidence for acute cholecystitis. ACT 112: Negative or not required by law. Electronically signed by: Peterson Adams M.D. 02/23/2024 1:03 PM
[2024-02-23] MEDS: CEFEPIME 2,000 MG in SYRINGE 0 ML IV SCH (14:03)
[2024-02-23] MEDS: metroNIDAZOLE 500 MG/100 ML BAG IV SCH (14:03)
--- NOTE | 2024-02-23 16:34 | Hospitalist Progress Note ---
Date of Service February 23, 2024 Assessment & Plan (1) Severe sepsis with acute organ dysfunction: (2) Acute on chronic renal failure: (3) Hyponatremia: (4) Hypokalemia: (5) Cholecystitis, acute: Plan Patient is a 54-year-old female presents to the ED with severe electrolyte abn ormalities, acute kidney injury and evidence of severe dehydration due to diarrheal illness. Imaging suggest possible cholecystitis. With severe lactic acidosis, elevated procalcitonin, leukocytosis and acute kidney injury, patient meets criteria severe sepsis with organ dysfunction due to cholecystitis. Acute gastroenteritis, Salmonella Levaquin changed to cefepime plus Flagyl Clear liquids for today IV fluids Monitor closely Bacteremia Blood culture: Gram-negative bacilli x 1 bottle Currently on cefepime Will consult infectious disease service Cholelithiasis Seen on, ultrasound, MRCP Patient denies right upper quadrant pain Close outpatient monitoring Acute cholecystitis unlikely HIDA scan negative General surgery on board No plans for surgical intervention Prolonged QT Repeat EKG showing persistent QT corrected of 560s Likely secondary to electrolyte deficiencies Replace potassium, phosphorus Repeat BMP, magnesium, phosphorus this evening Elevated lithium level 1.5, now 1.2 Underlying mood disorder Psychiatry service consulted Hold lithium Monitor DVT prophylaxis SCDs Admission and Anticipated Discharge Date Admission Date: February 22, 2024 Subjective Follow-up for gastroenteritis, etc. Seen resting in bed, comfortable, not in distress, patient's Caleb at the bedside visiting States she feels a little bit better compared to yesterday But still having diarrhea, 2 episodes today, loose, watery, nonbloody No nausea or vomiting, no fevers or chills No other new symptom Review of Systems Review of Systems: all noted and negative except for above Physical Exam Physical Exam: General- oriented x 3, not in distress, speaks in sentences with no effort or accessory muscle use Eyes- anicteric Neck- no JVD dry oral mucosa Lungs- clear breath sounds bilaterally, no rales/wheezes Heart- normal rate, regular rhythm; no murmurs Abdomen- Hyperactive bowel sounds, nondistended, soft, nontender Extremities- no pretibial edema, no calf tenderness Neuro- alert, oriented x 3; no gross focal neurologic deficits Skin- warm & dry Results & Data Results & Data Vital Signs (Past 12 Hours) Vital Signs Temp Pulse Resp BP Pulse Ox O2 Del Method 02/23/24 15:32 36.4 C L 64 18 106/68 96 Room Air 02/23/24 11:12 36.4 C L 60 16 96/60 L 98 Room Air 02/23/24 07:14 36.5 C 61 18 98/60 L 98 Room Air all noted and reviewed including below
--- NOTE | 2024-02-23 17:08 | Psychiatric Consultation ---
Date of Consultation February 23, 2024 Impression / Recommendations Impression 54 year old female who presents due to GI issues. Her lithium levels were high so psychiatry was consulted. (1) Borderline personality disorder: Plan Discontinue patient's lithium while she is in the hospital. Patient is taking this medication for impulsivity and anger. She does not have bipolar disorder. She is on multiple other psych medications which will control her symptoms while she is in the hospital. Her outpatient psychiatrist can re-start her Proctor if necessary if she requires it after she is discharged. Psych History Identifying Data Patient is 54 year old female with past psychiatric history of Borderline personality disorder presented to the hospital due to GI complaints. While the patient was being worked up, it was discovered that her lithium level was 1.5. Psychiatry was consulted for medication recommendations. Chief Complaint "I can't believe that I am giving up my lithium". History of Present Illness Patient is 54 year old female with past psychiatric history of Borderline personality disorder presented to the hospital due to GI complaints. While the patient was being worked up, it was discovered that her lithium level was 1.5. Psychiatry was consulted for medication recommendations. I interviewed the patient with her at the bedside. She has been diagnosed with borderline personality disorder. We discussed that she is on a large amount of medication, particularly for borderline personality disorder. She does not have bipolar disorder so the lithium is prescribed by her psychiatrist to help her control her irrational anger towards her . I discussed with the patient that discontinuing her lithium while she is in the hospital is necessary but she can re-start it under the supervision of her outpatient psychiatrist. The patient and her understood and said they would make an appointment after she is discharged. Allergies Allergy/AdvReac Type Severity Reaction Status Date / Time No Known Allergies Allergy Verified 03/16/11 11:05 Home Medications Medication Instructions Recorded Confirmed Type alprazolam 0.5 mg tablet 0.5 mg PO TID PRN Anxiety 02/22/24 02/22/24 History bupropion HCl 300 mg 24 hr tablet, 300 mg PO QAM 02/22/24 02/22/24 History extended release clomipramine 75 mg capsule 150 mg PO QPM 02/22/24 02/22/24 History levothyroxine 88 mcg tablet 88 mcg PO DAILY 02/22/24 02/22/24 History lisdexamfetamine 70 mg capsule 70 mg PO QAM 02/22/24 02/22/24 History lithium carbonate 300 mg tablet 900 mg PO QPM 02/22/24 02/22/24 History lurasidone 120 mg tablet 120 mg PO DAILY 02/22/24 02/22/24 History lurasidone 20 mg tablet 20 mg PO DAILY 02/22/24 02/22/24 History tirzepatide 5 mg/0.5 mL 5 mg subcut WK 02/22/24 02/22/24 History subcutaneous pen injector (Mounjaro) topiramate 50 mg tablet 50 mg PO BID 02/22/24 02/22/24 History Patient History Medical History (Updated 02/22/24 @ 18:28 by Nick Lopez DO) Borderline personality disorder Generalized anxiety disorder Hypothyroidism Chronic renal failure, stage 3a Chronic laxative abuse Eating disorder Major depressive disorder Obsessive compulsive disorder Hiatal hernia Raynauds disease Prediabetes Social History Smoking Status: Never smoker Second Hand Exposure: No; Do You Dip or Chew Tobacco: No; Hx Alcohol Use: No Hx Substance Use: No Preferred Language: Malay Communication Ability: Effective Flavor Room Worker Required: No Beliefs That Will Affect Care: None Current Living Situation: Spouse Other Information That Helps Us Care for You: No Feels Safe at Home: Yes Safety Concerns: Feels Safe At This Time Assistive Devices: None Physical Exam Vital Signs (Past 24 Hours): Last Vital Signs Temp 36.4 C L 02/23/24 15:32 Pulse 64 02/23/24 15:32 Resp 18 02/23/24 15:32 BP 106/68 02/23/24 15:32 Pulse Ox 96 02/23/24 15:32 O2 Del Method Room Air 02/23/24 15:32 Constitutional: WD/WN, vitals as above cooperative and comfortable; no acute distress and not ill appearing Respiratory: normal respiratory effort, lungs clear to auscultation Cardiovascular: RRR, no murmur, no edema Gastrointestinal (Abdomen): Inspection/Auscultation: abdomen normal to inspection; abdomen not distended Percussion/Palpation: abdomen soft; abdomen nontender, no guarding, abdomen not rigid and abdomen not firm Skin: no rashes, warm and dry no jaundice Results & Data (PSY) Medications Administered Bupropion HCl (Bupropion Xl 300 Mg Tabcr) 300 mg PO QAM JUAN Stop: 03/24/24 08:59 Last Admin: 02/23/24 08:12 Dose: 300 mg Documented By: MARAH Potassium Chloride/Sodium Chloride (Normal Saline W/20 Meq Kcl) 20 meq in 1,000 mls @ 125 mls/hr IV .Q8H JUAN; Protocol Stop: 03/24/24 08:59 Last Admin: 02/23/24 10:17 Dose: 125 mls/hr Documented By: MARAH Cefepime HCl 2,000 mg/ Syringe 20 mls @ 5 mls/min IV Q12H JUAN; Protocol Stop: 03/04/24 13:29 Last Admin: 02/23/24 14:03 Dose: 5 mls/min Documented By: MARAH Metronidazole (Flagyl) 500 mg in 100 mls @ 100 mls/hr IV Q8H JUAN; Protocol Stop: 03/04/24 13:29 Last Infusion: 02/23/24 15:20 Dose: Infused Documented By: Admin: 02/23/24 14:03 Dose: 100 mls/hr Documented By: MARAH Levothyroxine Sodium (Levothyroxine Sodium 88 Mcg Tablet) 88 mcg PO DAILY JUAN Stop: 03/24/24 08:59 Last Admin: 02/23/24 08:12 Dose: 88 mcg Documented By: MARAH Lurasidone HCl (Lurasidone Hcl 20 Mg Tab) 140 mg PO DAILY JUAN Stop: 03/24/24 08:59 Last Admin: 02/23/24 08:12 Dose: 140 mg Documented By: MARAH Misdioraneous (Order Awaiting Action [Clomipramine 75 Mg Capsule]) 1 each N/A QS JUAN Stop: 03/24/24 00:00 Last Admin: 02/23/24 16:07 Dose: Not Given Documented By: Admin: 02/23/24 07:21 Dose: Not Given Documented By: Admin: 02/22/24 23:16 Dose: Not Given Documented By: BEBE Causey (Order Awaiting Action [Lisdexamfetamine 70 Mg Capsule]) 1 each N/A QS [facility] Stop: 03/24/24 00:00 Last Admin: 02/23/24 16:07 Dose: Not Given Documented By: Admin: 02/23/24 07:21 Dose: Not Given Documented By: Admin: 02/22/24 23:16 Dose: Not Given Documented By: BEBE Potassium Phosphate (Pot Phosphate Monobasic W/ Sod Tab) 2 tab PO QID [facility] Stop: 03/24/24 08:59 Last Admin: 02/23/24 13:23 Dose: 2 tab Documented By: Admin: 02/23/24 10:17 Dose: 2 tab Documented By: MARAH Topiramate (Topiramate 50 Mg Tab) 50 mg PO BID [facility] Stop: 03/23/24 20:59 Last Admin: 02/23/24 08:12 Dose: 50 mg Documented By: Admin: 02/22/24 21:56 Dose: 50 mg Documented By: BEBE [place] [address] IN/OBS CONSULT LVL 2,35M Patient Type New History Expanded Problem Focused Exam Expanded Problem Focused Diagnoses Borderline personality disorder F60.3
[2024-02-23] MEDS: CLOMIPRAMINE 75 MG PO SCH (20:24)
[2024-02-23] MEDS ORDERED: CLOMIPRAMINE HCL 75 MG PO SCH (21:00)
[2024-02-23 21:46] LABS: BUN Creatinine Ratio 17.7 (10-20); Calcium 8.7 mg/dl (8.6-10.3); Creatinine Clr Calc Pharmacy 66.7 ml/min; Est GFR (African American) 77.7 ml/min; Potassium 2.8 mmol/L (3.5-5.1)
[2024-02-23 21:50] LABS: Magnesium 2.1 mg/dl (1.7-2.4); Phosphorus 1.5 mg/dl (2.5-4.9)
[2024-02-24] MEDS ORDERED: POTASSIUM PHOS 3 MMOL/1 ML INFUSION IV STA (05:01)
[2024-02-24] MEDS: POTASSIUM CHLORIDE PWD 20 MEQ PACK PO STA (05:37)
[2024-02-24] MEDS: POTASSIUM PHOSPHATE 30 MMOL in SODIUM CHLORIDE 0.9% 500 ML IV ONE (05:37)
[2024-02-24] MEDS: POTASSIUM CHLORIDE PWD 20 MEQ PACK PO ONE ×2 (08:33)
[2024-02-24] MEDS: PATIENT'S OWN CONTROLLED MED 1 PO SCH (08:42)
[2024-02-24] MEDS: LISDEXAMFETAMINE DIMESYLATE PO SCH (08:42)
[2024-02-24 12:39] LABS: Hematocrit (blood only) 28.7 % (37.0-47.0); Hemoglobin 8.9 g/dl (12.0-16.0); Mean Corpuscular Hemoglobin 23.6 pg (25.0-34.0); Mean Corpuscular Volume 76.1 fL (80.0-100.0); Platelet Count 388 K/uL (130-400); RDW Coefficient of Variation 19.8 % (11.5-14.5); RDW Standard Deviation 54.2 fL (36.4-46.3); Red Blood Count 3.77 M/uL (4.20-5.40); White Blood Count 11.29 K/ul (4.8-10.8)
[2024-02-24 12:53] LABS: BUN Creatinine Ratio 12.7 (10-20); Calcium 8.6 mg/dl (8.6-10.3); Creatinine Clr Calc Pharmacy 90.8 ml/min; Est GFR (African American) 111.9 ml/min; Est GFR (Non-African American) 96.6 ml/min; Magnesium 1.9 mg/dl (1.7-2.4); Phosphorus 2.3 mg/dl (2.5-4.9); Potassium 3.7 mmol/L (3.5-5.1)
[2024-02-24 12:59] LABS: Basophils # (auto) 0.05 K/uL (0.00-0.20); Basophils % (auto) 0.4 %; Echinocytes 1+; Eosinophils # (auto) 0.15 K/uL (0.00-0.50); Eosinophils % (auto) 1.3 %; Immature Granulocytes # (auto) 0.84 K/uL (0.01-0.20); Immature Granulocytes % (auto) 7.4 %; Lymphocytes # (auto) 1.01 K/uL (1.20-3.40); Lymphocytes % (auto) 8.9 %; Monocytes % (auto) 4.4 %; Neutrophils # (auto) 8.74 K/uL (1.40-6.50); Neutrophils % (auto) 77.6 %
--- NOTE | 2024-02-24 16:06 | Electrocardiogram Report ---
Test Reason : Blood Pressure : / mmHG Vent. Rate : 062 BPM Atrial Rate : 062 BPM P-R Int : 172 ms QRS Dur : 112 ms QT Int : 536 ms P-R-T Axes : 062 023 115 degrees QTc Int : 544 ms Normal sinus rhythm Nonspecific T wave abnormality Abnormal ECG When compared with ECG of 23-FEB-2024 08:58, Nonspecific T wave abnormality has replaced inverted T waves in Inferior leads Nonspecific T wave abnormality has replaced inverted T waves in Lateral leads Confirmed by Shahram Tavarez ([id number]) on 02/24/2024 4:05:57 PM Referred By: REFERRED SELF Confirmed By:Shahram Tavarez
[2024-02-24] MEDS: LOPERAMIDE HCL 2 MG CAP PO PRN (20:11)
[2024-02-24] MEDS: POTASSIUM CHLORIDE CRTAB 20 MEQ TABCR PO SCH (20:12)
[2024-02-25] MEDS: POT PHOSPHATE MONOBASIC W/ SOD TAB PO SCH (09:55)
[2024-02-25] MEDS: cefTRIAXone SODIUM 2,000 MG/50 ML BAG IV SCH (13:09)
--- NOTE | 2024-02-25 14:55 | Hospitalist Progress Note ---
Date of Service February 25, 2024 Assessment & Plan (1) Severe sepsis with acute organ dysfunction: (2) Acute on chronic renal failure: (3) Hyponatremia: (4) Hypokalemia: (5) Cholecystitis, acute: Plan Patient is a 54-year-old female presents to the ED with severe electrolyte abn ormalities, acute kidney injury and evidence of severe dehydration due to diarrheal illness. Imaging suggest possible cholecystitis. With severe lactic acidosis, elevated procalcitonin, leukocytosis and acute kidney injury, patient meets criteria severe sepsis with organ dysfunction due to cholecystitis. Acute gastroenteritis, Salmonella Salmonella Bacteremia Patient presents with diarrhea for several days Leukocytosis present with WBC count of 17,000; down trended Stool PCR positive for Salmonella Blood culture from 5/192 out of 4 positive of Salmonella Repeat blood cultureno growth after 24 hours Antibiotics changed from cefepime/Flagyl to ceftriaxone EKG reviewed; QTc prolonged to greater than 500 Will appreciate infectious disease input Acute cholecystitis unlikely Cholelithiasis HIDA scan negative General surgery on board No plans for surgical intervention Transaminitis likely related with salmonella enteritidis Acute kidney injury Hypokalemia Hypovolemic hyponatremia Creatinine elevated on admission; down trended with hydration Encourage oral hydration Prolonged QT Repeat EKG showing persistent QT corrected of 560s Likely secondary to electrolyte deficiencies Replace potassium, phosphorus Elevated lithium level 1.5, now 1.2 Underlying mood disorder Psychiatry service consulted;Discontinue patient's lithium while inpatient. Anemia Hemoglobin of 9, microcytic Obtain iron studies Patient reports that she will have outpatient colonoscopy scheduled in next few weeks. DVT prophylaxis SCDs Time spent evaluating patient, direct bedside care, chart review, placing orders, interpretation of diagnostic studies, discussion with consultants, patient, and family members, as well as other required patient management activities is 50 minutes Please note the above document was generated using voice recognition software. It may contain grammatical, syntax or spelling errors. Any formal questions or concerns about the content, text or information contained within the body of this dictation should be directly addressed to the provider for clarification Admission and Anticipated Discharge Date Admission Date: February 22, 2024 Subjective Patient seen and examined at bedside. She reports that she is feeling much better Diarrhea episode have improved compared to previous days. No significant events overnight Review of Systems Review of Systems: All systems reviewed & are unremarkable except as noted in Subjective Physical Exam Physical Exam: Constitutional: Alert oriented x 3; not in distress Respiratory: normal respiratory effort, lungs clear to auscultation, no wheeze, rales, rhonchi. Normal insp/exp effort, no accessory muscle use Cardiovascular: RRR, no murmur, no edema Vessels: no JVD or carotid bruit Chest: normal inspection of chest Abdomen: normal bowel sounds, soft, nontender, no hepatosplenomegaly Musculoskeletal: no cyanosis or clubbing, extremities motor strength 5/5 Skin: no rashes, warm and dry normal turgor Neurologic: PERRL, EOMI, accommodation nl, no face palsy, no dysarthria CN's II- XI intact bilaterally and moves all extremities Psychiatric: A+Ox3, euthymic affect Results & Data Results & Data Vital Signs (Past 12 Hours) Vital Signs Temp Pulse Pulse Resp BP BP Pulse Ox 02/25/24 14:28 36.3 C L 66 18 124/82 98 02/25/24 11:06 65 02/25/24 11:03 36.4 C L 64 18 126/81 100 02/25/24 08:29 02/25/24 07:33 36.4 C L 86 18 122/67 96 02/25/24 04:17 36.4 C L 61 16 112/68 96 O2 Del Method 02/25/24 14:28 Room Air 02/25/24 11:06 02/25/24 11:03 Room Air 02/25/24 08:29 Room Air 02/25/24 07:33 Room Air 02/25/24 04:17 Room Air
--- NOTE | 2024-02-25 16:13 | Infectious Disease Consult ---
<Statement entered by Matheus Bender II, DO - 02/26/24 14:21> I saw and evaluated the patient today. I have reviewed the trainee note and agree. Date of Service February 25, 2024 Telehealth Information I performed this visit using a real-time telehealth connection between my location and the patients location ([facility]). After connecting through interactive tele-video, patient was identified by name and date of and/or wristband check.Patient (or authorized healthcare vaccine customer representative) was informed that this was a telemedicine visit and it was being conducted confidentially over secure lines. My office door was closed and no one else was present in the room with me.Patient (or authorized healthcare vaccine customer representative) provided consent to proceed with the visit, expressed an understanding of privacy and security of the telemedicine visit, and gave permi ssion to have a hospital vaccine customer representative in the room in order to assist with the visit and to conduct portions of the visit, as needed. I informed the patient (or authorized healthcare vaccine customer representative) that I reviewed their record and presented the opportunity for them to ask any questions regarding the visit today. The patient agreed to participate. Assessment & Plan (1) Colitis due to Salmonella species: Plan: 54-year-old female with colitis secondary to Salmonella and subsequent bacteremia. Patient overall has improved significantly in the likely source is ingestion of food contaminated with Salmonella that led to invasion and subsequent bacteremia. Patient is currently afebrile without elevation WBC. Patient is complicated by pseudo cholecystitis based on this infection as HIDA scan is normal. given resolution of symptoms would recommend a total of 10 days of appropriate antibiotic therapy. - Ceftriaxone IV 2 g Q 24 hours while in hospital - if discharged prior to 10 days of therapy can transition to Amoxicillin 500 mg p.o. q.6 hours Appreciate consultation, please do not hesitate to reach out for any further questions or concerns. Yuval Hoyos MD PGY4 Infectious Disease (2) Salmonella bacteremia: History of Present Illness History of Present Illness 54-year-old female presenting with diarrhea with a past medical history of psychiatric illnesses. Patient with multiple episodes of diarrhea for the past week without any obvious ingestion of spoiled food, stool testing positive for Salmonella. Right upper quadrant ultrasound with evidence of possible cholecystitis however HIDA scan negative, surgery has been consulted currently without procedure plans as findings likely secondary to colitis secondary to Salmonella. White count initially 17, now 11. Patient afebrile. AST and ALT i n the 200s, bilirubin normal. 2/4 bottles positive for Salmonella species sensitive to penicillin. Repeat blood cultures currently negative to date. Patient was initially on cefepime, now switch to ceftriaxone is currently day 3 of therapy. patient states she is currently still having diarrhea, however has decreased significantly. previously up to 30 episodes per day, now in the last 24 hours has had approximately 10, has had a few episodes since the a.m. however she states it is significantly improving in overall feels much better. She has no sick contacts, her ate the same food as her during the same time. And has not experienced any symptoms. Allergies Allergy/AdvReac Type Severity Reaction Status Date / Time No Known Allergies Allergy Verified 03/16/11 11:05 Home Medications Medication Instructions Recorded Confirmed Type alprazolam 0.5 mg tablet 0.5 mg PO TID PRN Anxiety 02/22/24 02/22/24 History bupropion HCl 300 mg 24 hr tablet, 300 mg PO QAM 02/22/24 02/22/24 History extended release clomipramine 75 mg capsule 150 mg PO QPM 02/22/24 02/22/24 History levothyroxine 88 mcg tablet 88 mcg PO DAILY 02/22/24 02/22/24 History lisdexamfetamine 70 mg capsule 70 mg PO QAM 02/22/24 02/22/24 History lithium carbonate 300 mg tablet 900 mg PO QPM 02/22/24 02/22/24 History lurasidone 120 mg tablet 120 mg PO DAILY 02/22/24 02/22/24 History lurasidone 20 mg tablet 20 mg PO DAILY 02/22/24 02/22/24 History tirzepatide 5 mg/0.5 mL 5 mg subcut WK 02/22/24 02/22/24 History subcutaneous pen injector (Mounjaro) topiramate 50 mg tablet 50 mg PO BID 02/22/24 02/22/24 History Patient History Medical History (Updated 02/25/24 @ 16:09 by Yuval Hoyos MD) Borderline personality disorder Generalized anxiety disorder Hypothyroidism Chronic renal failure, stage 3a Chronic laxative abuse Eating disorder Major depressive disorder Obsessive compulsive disorder Hiatal hernia Raynauds disease Prediabetes Social History Smoking Status: Never smoker Second Hand Exposure: No; Do You Dip or Chew Tobacco: No; Hx Alcohol Use: No Hx Substance Use: No Preferred Language: Andorran Communication Ability: Effective Log Chipper Required: No Beliefs That Will Affect Care: None Current Living Situation: Spouse Other Information That Helps Us Care for You: No Feels Safe at Home: Yes Safety Concerns: Feels Safe At This Time Assistive Devices: None Review of Systems CONSTITUTIONAL: Denies weight loss, fever and chills. HEENT: Denies changes in vision and hearing. RESPIRATORY: Denies SOB and cough. CV: Denies palpitations and CP. GI: Denies abdominal pain, nausea, vomiting.. : Denies dysuria and urinary frequency. MSK: Denies myalgia and joint pain. SKIN: Denies rash and pruritus. NEUROLOGICAL: Denies headache and syncope PSYCHIATRIC: Denies recent changes in mood. Denies anxiety and depression. Results & Data Vital Signs (Past 12 Hours) Vital Signs Temp Pulse Pulse Resp BP BP Pulse Ox 02/25/24 15:43 68 02/25/24 14:28 36.3 C L 66 18 124/82 98 02/25/24 11:06 65 02/25/24 11:03 36.4 C L 64 18 126/81 100 02/25/24 08:29 02/25/24 07:33 36.4 C L 86 18 122/67 96 02/25/24 04:17 36.4 C L 61 16 112/68 96 O2 Del Method 02/25/24 15:43 02/25/24 14:28 Room Air 02/25/24 11:06 02/25/24 11:03 Room Air 02/25/24 08:29 Room Air 02/25/24 07:33 Room Air 02/25/24 04:17 Room Air
--- NOTE | 2024-02-25 16:36 | Electrocardiogram Report ---
Test Reason : Blood Pressure : / mmHG Vent. Rate : 066 BPM Atrial Rate : 300 BPM P-R Int : 000 ms QRS Dur : 100 ms QT Int : 480 ms P-R-T Axes : 000 -04 051 degrees QTc Int : 503 ms Poor data quality, interpretation may be adversely affected Accelerated Junctional rhythm Moderate voltage criteria for LVH, may be normal variant Prolonged QT Abnormal ECG When compared with ECG of 24-FEB-2024 05:54, Junctional rhythm has replaced Sinus rhythm Confirmed by Shahram Tavarez ([id number]) on 02/25/2024 4:35:54 PM Referred By: REFERRED SELF Confirmed By:Shahram Tavarez
--- NOTE | 2024-02-25 16:47 | Electrocardiogram Report ---
Test Reason : Blood Pressure : / mmHG Vent. Rate : 070 BPM Atrial Rate : 070 BPM P-R Int : 154 ms QRS Dur : 100 ms QT Int : 456 ms P-R-T Axes : -17 -09 033 degrees QTc Int : 492 ms Normal sinus rhythm Voltage criteria for left ventricular hypertrophy Prolonged QT Abnormal ECG When compared with ECG of 25-FEB-2024 05:53, (unconfirmed) Sinus rhythm has replaced Junctional rhythm Confirmed by Shahram Tavarez ([id number]) on 02/25/2024 4:46:56 PM Referred By: REFERRED SELF Confirmed By:Shahram Tavarez
[2024-02-26 06:32] LABS: Hematocrit (blood only) 27.8 % (37.0-47.0); Hemoglobin 8.8 g/dl (12.0-16.0); Mean Corpuscular Hemoglobin 23.6 pg (25.0-34.0); Mean Corpuscular Hgb Conc 31.7 g/dL (32.0-36.0); Mean Corpuscular Volume 74.5 fL (80.0-100.0); Mean Platelet Volume 10.4 fL (9.4-12.4); Nucleated RBC # (auto) 0.03 K/uL (0.00-0.12); Nucleated RBC % (auto) 0.5 %; Platelet Count 401 K/uL (130-400); RDW Standard Deviation 53.7 fL (36.4-46.3); Red Blood Count 3.73 M/uL (4.20-5.40); White Blood Count 5.46 K/ul (4.8-10.8)
[2024-02-26 06:57] LABS: Alanine Aminotransferase 110 U/L (7-52); Albumin Globulin Ratio 1.2 (0.9-2); Albumin Level 2.6 gm/dl (3.4-5.0); Alkaline Phosphatase 87 U/L (34-104); Anion Gap 6 (3-11); Aspartate Aminotransferase 29 U/L (13-39); BUN Creatinine Ratio 3.3 (10-20); Bilirubin,Total 0.3 mg/dl (0.2-1.0); Blood Urea Nitrogen 2 mg/dl (6-23); Calcium 8.4 mg/dl (8.6-10.3); Carbon Dioxide 24 mmol/L (21-32); Chloride 111 mmol/L (98-107); Creatinine Clr Calc Pharmacy 104.9 ml/min; Est GFR (African American) 119.1 ml/min; Est GFR (Non-African American) 102.8 ml/min; Globulin 2.2 gm/dl (2.5-4.0); Glucose 90 mg/dl (70-99(Fasting)); Potassium 3.6 mmol/L (3.5-5.1); Sodium 141 mmol/L (136-145); Total Protein 4.8 gm/dl (6.0-8.3); Transferrin 151 mg/dl (200-360)
[2024-02-26 06:58] LABS: Basophils # (auto) 0.06 K/uL (0.00-0.20); Basophils % (auto) 1.1 %; Eosinophils # (auto) 0.14 K/uL (0.00-0.50); Eosinophils % (auto) 2.6 %; Immature Granulocytes # (auto) 0.49 K/uL (0.01-0.20); Lymphocytes # (auto) 1.47 K/uL (1.20-3.40); Lymphocytes % (auto) 26.9 %; Monocytes # (auto) 0.37 K/uL (0.11-0.59); Monocytes % (auto) 6.8 %; Neutrophils # (auto) 2.93 K/uL (1.40-6.50); Neutrophils % (auto) 53.6 %; Rouleaux 1+
[2024-02-26 07:08] LABS: Ferritin 50.9 ng/ml (8-388)
--- NOTE | 2024-02-26 14:18 | Discharge Summary ---
Date of Service February 26, 2024 Admission HPI Per Admitting Provider Patient is a 54-year-old female with prediabetes and multiple mental health diagnoses presents to the emergency room with above complaint. In the emergency room had numerous electrolyte abnormalities as well as imaging suggestive of possible acute cholecystitis. She was referred to our service for further evaluation. Time my evaluation patient was feeling a bit better. She presented quite hypotensive which it was responded to IV fluid resuscitation. She reports diarrheal stools too numerous to count over this entire week. She denies any spoiled food, recent travel, undercooked food. She denies excessive use of laxatives. No one else in the family has a diarrheal illness. She was able to continue taking her medicines she was intermittently nauseated but really was unable to eat eat or drink a whole lot over the last week. She noticed her lips and tongue getting extremely dry. She came to the emergency room for evaluation. She did just start Mounjaro within the past couple months. She is very hesitant to stop taking that because it is helping her lose weight. She follows regularly with a psychiatrist. She denies any chest pain or shortness of breath. No changes in her urine that she has noticed. She has not had any fevers but does admit to some chills Admission Exam Per Admitting Provider Constitutional: Alert, ill in appearance, moderately toxic, HEENT: Mucous membranes extremely dry. Sclera clear Neck: Soft, no adenopathy Lungs: Clear to auscultation, decreased, no wheezes rales or rhonchi CV: S1-S2, regular Abdomen: Soft, right upper quadrant tenderness, positive Lema sign, no guarding rigidity or rebound Extremities: No significant edema Musculoskeletal: No significant joint tenderness Neuro: No focal deficits, moves all 4 extremities Psych: Cooperative, flat affect Principal Diagnosis Salmonella enteritis Salmonella bacteremia Discharge Exam Constitutional: Alert oriented x 3; not in distress Respiratory: normal respiratory effort, lungs clear to auscultation, no wheeze, rales, rhonchi. Normal insp/exp effort, no accessory muscle use Cardiovascular: RRR, no murmur, no edema Vessels: no JVD or carotid bruit Chest: normal inspection of chest Abdomen: normal bowel sounds, soft, nontender, no hepatosplenomegaly Musculoskeletal: no cyanosis or clubbing, extremities motor strength 5/5 Skin: no rashes, warm and dry normal turgor Neurologic: PERRL, EOMI, accommodation nl, no face palsy, no dysarthria CN's II- XI intact bilaterally and moves all extremities Psychiatric: A+Ox3, euthymic affect Discharge Data Allergies Allergy/AdvReac Type Severity Reaction Status Date / Time No Known Allergies Allergy Verified 03/16/11 11:05 Consultations 02/22/24 16:50 ED Decision to Admit Stat 02/22/24 17:00 Consult General Surgery Routine 02/23/24 08:41 Consult Psychiatry Routine 02/23/24 16:38 Consult Infectious Diseases Routine Ordered Studies 02/22/24 13:15 CT Abd and Pelvis [CT abd pelvis IV con only] Stat CT head/brain wo con Stat 02/22/24 15:05 US gallbladder Stat 02/22/24 17:43 MR MRCP Stat Hospital Course (1) Severe sepsis with acute organ dysfunction: (2) Acute on chronic renal failure: (3) Hyponatremia: (4) Hypokalemia: (5) Cholecystitis, acute: Plan Patient is a 54-year-old female presents to the ED with severe electrolyte abnormalities, acute kidney injury and evidence of severe dehydration due to diarrheal illness. Acute gastroenteritis, Salmonella Salmonella Bacteremia Patient presents with diarrhea for several days Leukocytosis present with WBC count of 17,000; down trended Stool PCR positive for Salmonella Blood culture from out of 4 positive of Salmonella Repeat blood cultureno growth after 48 hours During the hospitalization, patient was treated with IV antibiotics with cefepime initially and then ceftriaxone. Infectious disease was consulted for comanagement. Patient was recommended amoxicillin 500 mg 4 times a day to complete the antibiotic course. At the time of the discharge, patient's vital stable; she was afebrile and was no longer having diarrhea Acute cholecystitis unlikely Cholelithiasis HIDA scan negative General surgery on board No plans for surgical intervention Transaminitis likely related with salmonella enteritidis- Resolved Acute kidney injury Hypokalemia Hypovolemic hyponatremia Creatinine elevated on admission; down trended with hydration Elevated lithium level 1.5, now 1.2 Underlying mood disorder Psychiatry service consulted;Discontinue patient's lithium while inpatient. Anemia Hemoglobin of 9, microcytic consistent with iron deficiency anemia Patient reported that she will follow-up with her primary care doctor and to workup as outpatient Please note the above document was generated using voice recognition software. It may contain grammatical, syntax or spelling errors. Any formal questions or concerns about the content, text or information contained within the body of this dictation should be directly addressed to the provider for clarification Total Time Total Time Spent Total Time Spent (In Minutes): 45 Total Time Includes: Examination of the Patient, Discharge Planning, Medication Reconciliation, Communication With Other Providers and Other Discharge Plan Discharge Items Patient Disposition: Home - Self-Care Reason For Visit: SEVERE SEPSIS Discharge Diagnosis: Acute gastroenteritis Salmonella bacteremia Activity: Resume your previous activity Non-emergency contact: Primary Care Provider Call non-emergency contact if: you have any medication questions and your symptoms worsen Follow-up/Referrals: Lane Malone MD [Primary Care Provider] - (Date & Time 03/02/2024 1:40 PM Provider Jonnathan Marte MD [facility] ) Diet: Regular Addtl Attending Provider Instructions: You were admitted to the hospital due to Salmonella gastritis which led to bacteremia(bacteria in the blood). You were treated with IV antibiotics during the hospitalization. You are prescribed following medication to take at home: Amoxicillin 500 mg every 6 hours for next 7 days starting tomorrow. Your evaluated by psychiatry during the hospitalization who recommended to stop lithium. Please follow-up with your psychiatry as outpatient. You were found to have Iron Deficiency Anemia. Please follow up with your PCP regarding work up including colonoscopy. Pending Studies at Discharge: No Stand-Alone Forms: My [facility], Smoking Cessation Medications and DC Order Prescriptions: New amoxicillin 500 mg capsule 500 mg PO Q6H 7 Days Qty: 28 0RF Continued clomipramine 75 mg Capsule 150 mg PO QPM levothyroxine 88 mcg Tablet 88 mcg PO DAILY alprazolam 0.5 mg Tablet 0.5 mg PO TID PRN (Reason: Anxiety) bupropion HCl 300 mg tablet extended release 24 hr 300 mg PO QAM topiramate 50 mg tablet 50 mg PO BID lisdexamfetamine 70 mg Capsule 70 mg PO QAM lurasidone 20 mg tablet 20 mg PO DAILY lurasidone 120 mg tablet 120 mg PO DAILY Mounjaro 5 mg/0.5 mL pen injector 5 mg SUBCUT WK Discontinued lithium carbonate 300 mg Tablet 900 mg PO QPM Discharge Orders: Discharge Order (Routine); Ordered 05/23/24 Ordered By: Kyle Grider/Other Patient Handouts: Salmonella Dx Sx Tx Admission Data Admit Date/Time: 02/22/24 17:43 Attending Provider: Kyle Colvin Admit Provider: Nick Lopez Primary Care Provider: Lane Malone Other Providers: Nick Lopez; Ramirez Gillespie; Gwen Helm; Panda Jane; Harry Pablo Jr; Erin Cazares; Desiree Rosales; Darren Hoang; Rocky Singletary; [place] Yan; Ayush Renteria I.; Matheus Bender II; Radha Lin; Yazan Lopez; Rl Ramsey; Fady Quinn; Yuval Hoyos Other Interventions: Discharge Summary Assessment (RN) Last Done: 02/26/24 13:31
--- NOTE | 2024-02-26 15:30 | Electrocardiogram Report ---
Test Reason : Blood Pressure : / mmHG Vent. Rate : 071 BPM Atrial Rate : 071 BPM P-R Int : 152 ms QRS Dur : 102 ms QT Int : 474 ms P-R-T Axes : 004 004 052 degrees QTc Int : 515 ms Poor data quality, interpretation may be adversely affected Normal sinus rhythm Minimal voltage criteria for LVH, may be normal variant Prolonged QT Abnormal ECG When compared with ECG of 25-FEB-2024 15:15, No significant change was found Confirmed by Shahrma Tavarez ([id number]) on 02/26/2024 3:30:18 PM Referred By: REFERRED SELF Confirmed By:Shahram Tavarez
== END 2024-02-26 14:16 | disposition home or self-care (01) | DRG 872 ==
LOC: ED 12:44 → 2S 17:43 → SUATTDRO 17:43 → 2S 20:44